=== PATIENT | female | born 1995 | race Caucasian/White ===

== ENCOUNTER 2023-03-18 22:09 | Emergency (ER) | payer SELFPAY ==
--- OUTSIDE RECORDS SUMMARY | 2023-03-18 22:17 | XMS REPORT | Continuity of Care Document ---
:1995 Author Organization [facility] t Address [address] [place] [address] [address] [place] [address] Care Team Providers Name Role Phone Ben Coronel Temo Primary Care Physician Doctor Unassigned, [place] Attending Clinician Unavailable FABIO WILCOX Attending Clinician Unavailable Fabio Lindsay Attending Clinician Steffen Arcos MD Attending Clinician Edward STORY Attending Clinician Unavailable Edward Liang Attending Clinician Dorothea Brasher Attending Clinician Kianna Corona LMSW Attending Clinician Unavailable Dixon Youngblood DO Attending Clinician Lucero Goyal RN Attending Clinician Unavailable [facility] Attending Clinician Unavailable Destiney Fabian Attending Clinician DESTINEY TELLEZ Attending Clinician Unavailable Colton Castano Attending Clinician Edward STORY Admitting Clinician Unavailable Colton Castano Admitting Clinician Payers Payer Name Policy Type Policy Number Effective Date Expiration Date [id number] 2019 00:00:00 WOMEN Problems Condition Condition Condition Status Onset Resolution Last Treating Co mments Source Name Details Category Date Date Treatment Clinician Date Cervical Cervical Disease Active 2018-07 Overview: Un dirk Papanicola Papanicola 0-23 Formattin ity of ou smear ou smear 00:00: g of this [place] as negative negative 00 note Medica l within within might be Branch last 12 last 12 different months months from the original. See scanned records 04/2019 Elevated Elevated Disease Active 2018-07 Unive rs blood blood 0-18 ity of pressure pressure 00:00: [place] reading reading 00 Medical without without Branch diagnosis diagnosis of of hypertensi hypertensi on on VOMITING VOMITING Diagnosis Active 2017-02-19 Memoria Active 02-11 21:54:00 l 02/11/2017 00:00: Yevgeniy n [facility] [place] Screening Screening Disease Active Uni vers examinatio examinatio 2- it y of n for STD n for STD [place] ([place] ([place]ually [place] Medi elizabeth transmitte transmitte Br anch d disease) d disease) Screening Screening Disease Active Overview: Univers for STD for STD 2-04 Formattin ity o f (sexually (sexually 00:00: [place] of this [place] transmitte transmitte 00 note Me dical d disease) d disease) might be Branch different from the original. ICD10 Diagnosis Term Assistant Product Manager Utility Generalize Generalize Disease Active U nivers d anxiety d anxiety 2-04 ity of disorder disorder 00:00: [place] 00 Medical Branch Obesity Obesity Disease Active Overview: Univ ers 2-04 Formattin ity of 00:00: g of this [place] 00 note Medical might be Branch different from the original. ICD10 Diagnosis Term Assistant Product Manager Utility Panic Panic Problem Active Common attack attack [facility] Vaginal Vaginal Problem Active Common discharge discharge [facility] Anxiety Anxiety Problem Active Common [facility] Gastroesop Gastroeso Problem Resolve 2017-02-15 Memoria hageal phageal d 01:07:55 l reflux reflux [place] disease disease (disorder) (disorder) Resolved Problem 02/15/2017 [facility] [place] Asthma Asthma Problem Resolve 2017-02-15 Mem oria (disorder) (disorder) d 01:07:55 l Resolved [place] Problem 02/15/2017 [facility] [place] Migraine Migraine Problem Resolve 2017-02-15 Memoria (disorder) (disorder) d 01:07:55 l Resolved [place] Problem 02/15/2017 [facility] [place] Allergies, Adverse Reactions, Alerts Allergy Allergy Status Severity Reaction(s) Onset Inactive Treating Comm ents Source Name Type Date Date Clinician Adhesive Propensi Active Rash 2018-07 Univer s ty to 0-18 ity of adverse 00:00: [place] reaction 00 Medical s Branch ADHESIVE Drug Active Rash 2018-07 Univers Class 0-18 ity of 00:00: [place] 00 Medical Branch Sulfa Propensi Active Rash Univers (Sulfona ty to 2-03 ity of mide adverse 00:00: [place] Antibiot reaction 00 Medica l ics) s Branch SULFA Drug Active Rash Univers (SULFONA Class 2-03 ity of MIDE 00:00: [place] ANTIBIOT 00 Medical ICS) Branch sulfa sulfa Active [facility]oria drugs drugs l [place] Social History Social Habit Start Date Stop Date Quantity Comments Source Exposure to 2022-04-15 2022-04-25 Not sure [facility] SARS-CoV-2 00:00:00 12:37:00 [place] Medical (event) Branch Alcohol intake 2022-04-25 2022-04-25 Current University of 00:00:00 00:00:00 non-drinker of [facility] alcohol (finding) Branch Tobacco use and 2022-04-25 2022-04-25 Smokeless tobacco Un iversity of exposure 00:00:00 00:00:00 non-user [facility] Social History 2017-02-11 [facility] 08:02:49 Sex Ass[birth year] At [birth year] Universit y of 00:00:00 00:00:00 [facility] Smoking Status Start Date Stop Date Source Never smoked tobacco [facility] Medications Ordered Filled Start Stop Current Ordering Indication Dosage Frequency Signature Comments Components Source Medication Medication Date Date Medication? Clinician (SIG) Name Name ibuprofen Yes [id number] 600mg Take 1 Univers 600 mg 8-24 tablet by ity of tablet 00:00: mouth [place] 00 every 6 Medical (six) Branch hours as needed for Pain (scale 4-6). ibuprofen Yes [id number] 600mg Take 1 Univers 600 mg 8-24 tablet by ity of tablet 00:00: mouth [place] 00 every 6 Medical (six) Branch hours as needed for Pain (scale 4-6). ibuprofen 2021-0 Yes [id number] 600mg Take 1 Univers 600 mg 8-24 tablet by ity of tablet 00:00: mouth [place] 00 every 6 Medical (six) Branch hours as needed for Pain (scale 4-6). ibuprofen 2021-0 Yes [id number] 600mg Take 1 Univers 600 mg 8-24 tablet by ity of tablet 00:00: mouth [place] 00 every 6 Medical (six) Branch hours as needed for Pain (scale 4-6). ibuprofen 2021-0 Yes [id number] 600mg Take 1 Univers 600 mg 8-24 tablet by ity of tablet 00:00: mouth [place] 00 every 6 Medical (six) Branch hours as needed for Pain (scale 4-6). ibuprofen 2021-0 Yes [id number] 600mg Take 1 Univers 600 mg 8-24 tablet by ity of tablet 00:00: mouth [place] 00 every 6 Medical (six) Branch hours as needed for Pain (scale 4-6). ibuprofen 2021-0 Yes [id number] 600mg Take 1 Univers 600 mg 8-24 tablet by ity of tablet 00:00: mouth [place] 00 every 6 Medical (six) Branch hours as needed for Pain (scale 4-6). ibuprofen 2021-0 Yes [id number] 600mg Take 1 Univers 600 mg 8-24 tablet by ity of tablet 00:00: mouth [place] 00 every 6 Medical (six) Branch hours as needed for Pain (scale 4-6). ondansetron 0 Yes [id number] 4mg Take 1 Univers (ZOFRAN 8-18 tablet by ity of ODT) 4 mg 00:00: mouth [place] disintegrat 00 every 8 Medic al ing tablet (eight) Branch hours as needed for Nausea and Vomiting (N/V). proMETHazin 2020-0 Yes [id number] 25mg Insert 1 Univers e 25 mg 8-18 Suppositor ity of suppository 00:00: [place] 00 rectum Medical every 6 Branch (six) hours as needed for Nausea and Vomiting (N/V) or N/V unresponsi ve to Ondansetro n. ondansetron 0 Yes [id number] 4mg Take 1 Univers (ZOFRAN 8-18 tablet by ity of ODT) 4 mg 00:00: mouth [place] disintegrat 00 every 8 Medic al ing tablet (eight) Branch hours as needed for Nausea and Vomiting (N/V). proMETHazin Yes [id number] 25mg Insert 1 Univers e 25 mg 8-18 Suppositor ity of suppository 00:00: [place] 00 rectum Medical every 6 Branch (six) hours as needed for Nausea and Vomiting (N/V) or N/V unresponsi ve to Ondansetro n. ondansetron 0 Yes [id number] 4mg Take 1 Univers (ZOFRAN 8-18 tablet by ity of ODT) 4 mg 00:00: mouth [place] disintegrat 00 every 8 Medic al ing tablet (eight) Branch hours as needed for Nausea and Vomiting (N/V). proMETHazin Yes [id number] 25mg Insert 1 Univers e 25 mg 8-18 Suppositor ity of suppository 00:00: [place] 00 rectum Medical every 6 Branch (six) hours as needed for Nausea and Vomiting (N/V) or N/V unresponsi ve to Ondansetro n. ondansetron Yes [id number] 4mg Take 1 Univers (ZOFRAN 8-18 tablet by ity of ODT) 4 mg 00:00: mouth [place] disintegrat 00 every 8 Medic al ing tablet (eight) Branch hours as needed for Nausea and Vomiting (N/V). proMETHazin Yes [id number] 25mg Insert 1 Univers e 25 mg 8-18 Suppositor ity of suppository 00:00: [place] 00 rectum Medical every 6 Branch (six) hours as needed for Nausea and Vomiting (N/V) or N/V unresponsi ve to Ondansetro n. ondansetron 0 Yes [id number] 4mg Take 1 Univers (ZOFRAN 8-18 tablet by ity of ODT) 4 mg 00:00: mouth [place] disintegrat 00 every 8 Medic al ing tablet (eight) Branch hours as needed for Nausea and Vomiting (N/V). proMETHazin 0 Yes [id number] 25mg Insert 1 Univers e 25 mg 8-18 Suppositor ity of suppository 00:00: [place] 00 rectum Medical every 6 Branch (six) hours as needed for Nausea and Vomiting (N/V) or N/V unresponsi ve to Ondansetro n. ondansetron Yes [id number] 4mg Take 1 Univers (ZOFRAN 8-18 tablet by ity of ODT) 4 mg 00:00: mouth [place] disintegrat 00 every 8 Medic al ing tablet (eight) Branch hours as needed for Nausea and Vomiting (N/V). proMETHazin Yes [id number] 25mg Insert 1 Univers e 25 mg 8-18 Suppositor ity of suppository 00:00: y into [place] 00 rectum Medical every 6 Branch (six) hours as needed for Nausea and Vomiting (N/V) or N/V unresponsi ve to Ondansetro n. ondansetron Yes [id number] 4mg Take 1 Univers (ZOFRAN 8-18 tablet by ity of ODT) 4 mg 00:00: mouth [place] disintegrat 00 every 8 Medic al ing tablet (eight) Branch hours as needed for Nausea and Vomiting (N/V). proMETHazin Yes [id number] 25mg Insert 1 Univers e 25 mg 8-18 Suppositor ity of suppository 00:00: y into [place] 00 rectum Medical every 6 Branch (six) hours as needed for Nausea and Vomiting (N/V) or N/V unresponsi ve to Ondansetro n. ondansetron Yes [id number] 4mg Take 1 Univers (ZOFRAN 8-18 tablet by ity of ODT) 4 mg 00:00: mouth [place] disintegrat 00 every 8 Medic al ing tablet (eight) Branch hours as needed for Nausea and Vomiting (N/V). proMETHazin Yes [id number] 25mg Insert 1 Univers e 25 mg 8-18 Suppositor ity of suppository 00:00: [place] 00 rectum Medical every 6 Branch (six) hours as needed for Nausea and Vomiting (N/V) or N/V unresponsi ve to Ondansetro n. Diflucan Diflucan 2018-0 Yes [place] 1 tablet Common 4-30 [facility] 00:00: - [facility] 00 [facility] Ondansetron 2017-0 Yes 8 mg = 1 Me moria 8 MG 7-17 tab, PO, l Disintegrat 22:20: TID, PRN He rmann ing Tablet 00 Nausea and [Zofran] Vomiting, Dissolve tab under tongue, X 4 day, # 10 tab, 0 Refill(s) pantoprazol 2017-0 Yes 40 mg = 1 M emoria e 40 MG 7-17 tab, PO, l Enteric 22:20: Daily, # Yevgeniy n Coated 00 30 tab, 1 Tablet Refill(s) [Protonix] Ondansetron 2017-0 Yes 8 mg = 1 Me moria 8 MG 7-17 tab, PO, l Disintegrat 22:20: TID, PRN He rmann ing Tablet 00 Nausea and [Zofran] Vomiting, Dissolve tab under tongue, X 4 day, # 10 tab, 0 Refill(s) pantoprazol 2017-0 Yes 40 mg = 1 M emoria e 40 MG 7-17 tab, PO, l Enteric 22:20: Daily, # Yevgeniy n Coated 00 30 tab, 1 Tablet Refill(s) [Protonix] Ondansetron 2017-0 Yes 8 mg = 1 Me moria 8 MG 7-17 tab, PO, l Disintegrat 22:20: TID, PRN He rmann ing Tablet 00 Nausea and [Zofran] Vomiting, Dissolve tab under tongue, X 4 day, # 10 tab, 0 Refill(s) pantoprazol 2017-0 Yes 40 mg = 1 M emoria e 40 MG 7-17 tab, PO, l Enteric 22:20: Daily, # Yevgeniy n Coated 00 30 tab, 1 Tablet Refill(s) [Protonix] pantoprazol 2017-0 Yes 40 mg = 1 M emoria e 40 MG 7-17 tab, PO, l Enteric 22:20: Daily, # Yevgeniy n Coated 00 30 tab, 1 Tablet Refill(s) [Protonix] Ondansetron 2017-0 Yes 8 mg = 1 Me moria 8 MG 7-17 tab, PO, l Disintegrat 22:20: TID, PRN He rmann ing Tablet 00 Nausea and [Zofran] Vomiting, Dissolve tab under tongue, X 4 day, # 10 tab, 0 Refill(s) Probiotic 2017 Yes 1 cap, PO, Me moria Formula 7-17 Daily, 0 l oral 20:01: Refill(s) [place] capsule 00 omeprazole 2017 Yes 20 mg = 1 Me moria 20 mg oral 7-17 cap, PO, l delayed 20:01: Daily, # Yevgeniy n release 00 30 cap, 0 capsule Refill(s) Esomeprazol 2017 No Daily, 0 Me moria e 7-17 Refill(s) l 20:01: [place] 00 Famotidine Yes 20 mg = 1 Me moria 20 MG Oral 7-17 tab, PO, l Tablet 20:01: BID, # 60 Yevgeniy n [Pepcid] 00 tab, 0 Refill(s) { Yes 1 tab, PO, Memoria (Ethinyl 7-17 Daily, # l Estradiol 20:01: 21 tab, 0 Her gomez 0.03 MG / 00 Refill(s) norethindro ne acetate 1.5 MG Oral Tablet) } Pack [Microgesti n 1.12/26] Probiotic Yes 1 cap, PO, Me moria Formula 7-17 Daily, 0 l oral 20:01: Refill(s) [place] capsule 00 omeprazole Yes 20 mg = 1 Me moria 20 mg oral 7-17 cap, PO, l delayed 20:01: Daily, # Yevgeniy n release 00 30 cap, 0 capsule Refill(s) Esomeprazol 2017 No Daily, 0 Me moria e 7-17 Refill(s) l 20:01: [place] 00 Famotidine Yes 20 mg = 1 Me moria 20 MG Oral 7-17 tab, PO, l Tablet 20:01: BID, # 60 Yevgeniy n [Pepcid] 00 tab, 0 Refill(s) { Yes 1 tab, PO, Memoria (Ethinyl 7-17 Daily, # l Estradiol 20:01: 21 tab, 0 Her gomez 0.03 MG / 00 Refill(s) norethindro ne acetate 1.5 MG Oral Tablet) } Pack [Microgesti n 1.12/26] Probiotic Yes 1 cap, PO, Me moria Formula 7-17 Daily, 0 l oral 20:01: Refill(s) [place] capsule 00 omeprazole Yes 20 mg = 1 Me moria 20 mg oral 7-17 cap, PO, l delayed 20:01: Daily, # Yevgeniy n release 00 30 cap, 0 capsule Refill(s) Esomeprazol 2017 No Daily, 0 Me moria e 7-17 Refill(s) l 20:01: [place] Famotidine Yes 20 mg = 1 Me moria 20 MG Oral 7-17 tab, PO, l Tablet 20:01: BID, # 60 Yevgeniy n [Pepcid] 00 tab, 0 Refill(s) { Yes 1 tab, PO, Memoria (Ethinyl 7-17 Daily, # l Estradiol 20:01: 21 tab, 0 Her gomez 0.03 MG / 00 Refill(s) norethindro ne acetate 1.5 MG Oral Tablet) } Pack [Microgesti n ] Probiotic Yes 1 cap, PO, Me moria Formula 7-17 Daily, 0 l oral 20:01: Refill(s) [place] capsule 00 omeprazole Yes 20 mg = 1 Me moria 20 mg oral 7-17 cap, PO, l delayed 20:01: Daily, # Yevgeniy n release 00 30 cap, 0 capsule Refill(s) Esomeprazol No Daily, 0 Me moria e 7-17 Refill(s) l 20:01: [place] Famotidine Yes 20 mg = 1 Me moria 20 MG Oral 7-17 tab, PO, l Tablet 20:01: BID, # 60 Yevgeniy n [Pepcid] 00 tab, 0 Refill(s) { Yes 1 tab, PO, Memoria (Ethinyl 7-17 Daily, # l Estradiol 20:01: 21 tab, 0 Her gomez 0.03 MG / 00 Refill(s) norethindro ne acetate 1.5 MG Oral Tablet) } Pack [Microgesti n 1.12/26] Zofran No Notes: [facility]oria 7-16 (Same as: l 21:00: Zofran) [place] 00 MEDICATION WASTE Product Size: 4 mg Product Wasted: ___ mg Zofran No Notes: Memoria 7-16 (Same as: l 21:00: Zofran) [place] 00 MEDICATION WASTE Product Size: 4 mg Product Wasted: ___ mg Zofran No Notes: Memoria 7-16 (Same as: l 21:00: Zofran) [place] 00 MEDICATION WASTE Product Size: 4 mg Product Wasted: ___ mg Zofran No Notes: Memoria 7-16 (Same as: l 21:00: Zofran) [place] 00 MEDICATION WASTE Product Size: 4 mg Product Wasted: ___ mg Lactulose No Notes: Memori a 667 MG/ML 7-16 (Same l Oral 14:15: as:Chronul [place] Solution 00 ac) Lactulose No Notes: Memori a 667 MG/ML 7-16 (Same l Oral 14:15: as:Chronul [place] Solution 00 ac) Lactulose No Notes: Memori a 667 MG/ML 7-16 (Same l Oral 14:15: as:Chronul [place] Solution 00 ac) Lactulose No Notes: Memori a 667 MG/ML 7-16 (Same l Oral 14:15: as:Chronul [place] Solution 00 ac) Pepcid No Notes: Memoria 7-16 (Same as: l 14:00: Pepcid) [place] 00 Can be dilute in 5-10cc NS IVP: Slow IV push over at least 2 minutes. Pepcid No Notes: Memoria 7-16 (Same as: l 14:00: Pepcid) [place] 00 Can be dilute in 5-10cc NS IVP: Slow IV push over at least 2 minutes. Pepcid No Notes: Memoria 7-16 (Same as: l 14:00: Pepcid) [place] 00 Can be dilute in 5-10cc NS IVP: Slow IV push over at least 2 minutes. Pepcid No Notes: Memoria 7-16 (Same as: l 14:00: Pepcid) [place] 00 Can be dilute in 5-10cc NS IVP: Slow IV push over at least 2 minutes. Flagyl No Notes: Memoria 7-16 (Same as: l 13:00: Flagyl) [place] 00 Avoid alcohol. Flagyl No Notes: Memoria 7-16 (Same as: l 13:00: Flagyl) [place] 00 Avoid alcohol. Flagyl No Notes: Memoria 7-16 (Same as: l 13:00: Flagyl) [place] 00 Avoid alcohol. Flagyl No Notes: Memoria 7-16 (Same as: l 13:00: Flagyl) [place] 00 Avoid alcohol. potassium No Notes: Memori a chloride 7-16 (Same as: l 12:00: K-Dur 20) [place] 00 "Do Not Crush" With food and full glass of water potassium No Notes: Memori a chloride 7-16 (Same as: l 12:00: K-Dur 20) [place] 00 "Do Not Crush" With food and full glass of water potassium No Notes: Memori a chloride 7-16 (Same as: l 12:00: K-Dur 20) [place] 00 "Do Not Crush" With food and full glass of water potassium No Notes: Memori a chloride 7-16 (Same as: l 12:00: K-Dur 20) [place] 00 "Do Not Crush" With food and full glass of water NS + KCL No Notes: Memoria 40mEq/L 7-16 PREMIX IV l 1000ml 09:42: - Do Not [place] (Premix) 00 Alter 1,000 mL WASTE: F/P - Sink; E - Municipal Trash Bin NS + KCL No Notes: Memoria 40mEq/L 7-16 PREMIX IV l 1000ml 09:42: - Do Not [place] (Premix) 00 Alter 1,000 mL WASTE: F/P - Sink; E - Municipal Trash Bin NS + KCL No Notes: [facility]oria 40mEq/L 7-16 PREMIX IV l 1000ml 09:42: - Do Not [place] (Premix) 00 Alter 1,000 mL WASTE: F/P - Sink; E - Municipal Trash Bin NS + KCL No Notes: Memoria 40mEq/L 7-16 PREMIX IV l 1000ml 09:42: - Do Not [place] (Premix) 00 Alter 1,000 mL WASTE: F/P - Sink; E - Municipal Trash Bin potassium No Notes: Memori a chloride 7-16 Infuse at l 07:01: a rate of [place] 00 10 mEq/hr. (Same as: KCL) potassium No Notes: Memori a chloride 7-16 Infuse at l 07:01: a rate of [place] 00 10 mEq/hr. (Same as: KCL) potassium No Notes: Memori a chloride 7-16 Infuse at l 07:01: a rate of [place] 00 10 mEq/hr. (Same as: KCL) potassium No Notes: Memori a chloride 7-16 Infuse at l 07:01: a rate of [place] 00 10 mEq/hr. (Same as: KCL) Levaquin No Notes: Memoria 7-16 (Same l 07:00: as:Levaqui [place] 00 n) Levaquin No Notes: Memoria 7-16 (Same l 07:00: as:Levaqui [place] 00 n) Levaquin No Notes: Memoria 7-16 (Same l 07:00: as:Levaqui [place] 00 n) Levaquin No Notes: [facility]oria 7-16 (Same l 07:00: as:Levaqui [place] 00 n) Reglan No Notes: Memoria 7-16 (Same as: l 06:56: Reglan) [place] 00 Reglan No Notes: [place]oria 7-16 (Same as: l 06:56: Reglan) [place] 00 Reglan No Notes: Memoria 7-16 (Same as: l 06:56: Reglan) [place] 00 Reglan No Notes: Memoria 7-16 (Same as: l 06:56: Reglan) [place] 00 Saline No Notes: Memoria Flush 0.9% 16 (Same as: l 06:55: BD [place] 00 Posiflush) Ondansetron No Notes: Vinnie sae -16 (Same as: l 06:55: Zofran) [place] 00 MEDICATION WASTE Product Size: 4 mg Product Wasted: ___ mg Hydralazine No Notes: Vinnie sae 02-11 (Same as: l 06:55: Apresoline [place] 00 ) Push over 5 minutes Albuterol No Notes: Memori a 0.833 MG/ML 02-11 (Same as: l / 06:55: Duoneb) [place] Ipratropium 00 [place] 0.167 MG/ML Inhalant Solution [DuoNeb] Nitroglycer No Notes: Vinnie sae in 02-11 (Same l 06:55: as:Nitroqu [place] 00 ick, Nitrostat) "Do Not Crush" Sublingual tablet Acetaminoph No Notes: Do M emoria en 02-11 not exceed l 06:55: 4 gm/day. [place] 00 (Same as: Tylenol) Morphine No Notes: Memoria 02-11 (Same l 06:55: as:MORPhin [place] 00 e Sulfate) Acetaminoph No Notes: Vinnie sae en 325 MG / 02-11 (Same as: l Hydrocodone 06:55: Rhodhiss Alyssia nn Bitartrate 00 325/5) Do 5 MG Oral not exceed Tablet 4gm/day of acetaminop hen. Sodium No 1,000 mL, Memori a Chloride 02-11 Rate: 125 l 0.154 06:55: ml/hr, [place] MEQ/ML 00 Infuse Injectable over: 8 Solution hr, Route: IV, Dosing Weight 86.818 kg, Total Volume: 1,000, Start date: 02/11/17 1:55:00 CDT, Duration: 30 day, Stop date: 03/13/17 1:54:00 CDT Saline No Notes: Memoria Flush 0.9% 02-11 (Same as: l 06:55: BD [place] 00 Posiflush) Ondansetron No Notes: Vinnie sae 02-11 (Same as: l 06:55: Zofran) [place] 00 MEDICATION WASTE Product Size: 4 mg Product Wasted: ___ mg Hydralazine No Notes: Vinnie sae 02-11 (Same as: l 06:55: Apresoline [place] 00 ) Push over 5 minutes Albuterol No Notes: Memori a 0.833 MG/ML 02-11 (Same as: l / 06:55: Duoneb) [place] Ipratropium 00 [place] 0.167 MG/ML Inhalant Solution [DuoNeb] Nitroglycer No Notes: Vinnie sae in 02-11 (Same l 06:55: as:Nitroqu [place] 00 ick, Nitrostat) "Do Not Crush" Sublingual tablet Acetaminoph No Notes: Do M emoria en 02-11 not exceed l 06:55: 4 gm/day. [place] 00 (Same as: Tylenol) Morphine No Notes: Memoria 02-11 (Same l 06:55: as:MORPhin [place] 00 e Sulfate) Acetaminoph No Notes: Vinnie sae en 325 MG / 02-11 (Same as: l Hydrocodone 06:55: Rhodhiss Alyssia nn Bitartrate 00 325/5) Do 5 MG Oral not exceed Tablet 4gm/day of acetaminop hen. Sodium No 1,000 mL, Memori a Chloride 02-11 Rate: 125 l 0.154 06:55: ml/hr, [place] MEQ/ML 00 Infuse Injectable over: 8 Solution hr, Route: IV, Dosing Weight 86.818 kg, Total Volume: 1,000, Start date: 02/11/17 1:55:00 CDT, Duration: 30 day, Stop date: 03/13/17 1:54:00 CDT Saline No Notes: Memoria Flush 0.9% 02-11 (Same as: l 06:55: BD [place] 00 Posiflush) Ondansetron No Notes: Vinnie sae 02-11 (Same as: l 06:55: Zofran) [place] 00 MEDICATION WASTE Product Size: 4 mg Product Wasted: ___ mg Hydralazine No Notes: Vinnie sae 02-11 (Same as: l 06:55: Apresoline [place] 00 ) Push over 5 minutes Albuterol No Notes: Memori a 0.833 MG/ML 02-11 (Same as: l / 06:55: Duoneb) [place] Ipratropium 00 [place] 0.167 MG/ML Inhalant Solution [DuoNeb] Nitroglycer No Notes: Vinnie sae in 02-11 (Same l 06:55: as:Nitroqu [place] 00 ick, Nitrostat) "Do Not Crush" Sublingual tablet Acetaminoph No Notes: Do M emoria en 02-11 not exceed l 06:55: 4 gm/day. [place] 00 (Same as: Tylenol) Morphine No Notes: Memoria 02-11 (Same l 06:55: as:MORPhin [place] 00 e Sulfate) Acetaminoph No Notes: Vinnie sae en 325 MG / 02-11 (Same as: l Hydrocodone 06:55: Rhodhiss Alyssia nn Bitartrate 00 325/5) Do 5 MG Oral not exceed Tablet 4gm/day of acetaminop hen. Sodium No 1,000 mL, Memori a Chloride 02-11 Rate: 125 l 0.154 06:55: ml/hr, [place] MEQ/ML 00 Infuse Injectable over: 8 Solution hr, Route: IV, Dosing Weight 86.818 kg, Total Volume: 1,000, Start date: 02/11/17 1:55:00 CDT, Duration: 30 day, Stop date: 03/13/17 1:54:00 CDT Saline No Notes: Memoria Flush 0.9% 02-11 (Same as: l 06:55: BD [place] 00 Posiflush) Ondansetron No Notes: Vinnie sae 02-11 (Same as: l 06:55: Zofran) [place] 00 MEDICATION WASTE Product Size: 4 mg Product Wasted: ___ mg Hydralazine No Notes: Vinnie sae 02-11 (Same as: l 06:55: Apresoline [place] ) Push over 5 minutes Albuterol No Notes: Memori a 0.833 MG/ML 02-11 (Same as: l / 06:55: Duoneb) [place] Ipratropium 00 [place] 0.167 MG/ML Inhalant Solution [DuoNeb] Nitroglycer No Notes: Vinnie sae in 02-11 (Same l 06:55: as:Nitroqu [place] 00 ick, Nitrostat) "Do Not Crush" Sublingual tablet Acetaminoph No Notes: Do M emoria en 02-11 not exceed l 06:55: 4 gm/day. [place] 00 (Same as: Tylenol) Morphine No Notes: Memoria 02-11 (Same l 06:55: as:MORPhin [place] 00 e Sulfate) Acetaminoph No Notes: Vinnie sae en 325 MG / 02-11 (Same as: l Hydrocodone 06:55: Rhodhiss Alyssia nn Bitartrate 00 325/5) Do 5 MG Oral not exceed Tablet 4gm/day of acetaminop hen. Sodium No 1,000 mL, Memori a Chloride 02-11 Rate: 125 l 0.154 06:55: ml/hr, [place] MEQ/ML 00 Infuse Injectable over: 8 Solution hr, Route: IV, Dosing Weight 86.818 kg, Total Volume: 1,000, Start date: 02/11/17 1:55:00 CDT, Duration: 30 day, Stop date: 03/13/17 1:54:00 CDT Benadryl No Notes: [facility] 7-16 (Same as: l 06:07: Benadryl) [place] 00 Benadryl No Notes: [facility] 7-16 (Same as: l 06:07: Benadryl) [place] Benadryl No Notes: [facility]oria 7-16 (Same as: l 06:07: Benadryl) [place] Benadryl No Notes: [facility]oria 7-16 (Same as: l 06:07: Benadryl) [place] Reglan No Notes: Memoria 7-16 (Same as: l 06:06: Reglan) [place] Reglan No Notes: [facility]oria 7-16 (Same as: l 06:06: Reglan) [place] Reglan No Notes: [facility] 7-16 (Same as: l 06:06: Reglan) [place] Reglan No Notes: [facility]oria 7-16 (Same as: l 06:06: Reglan) [place] 00 NS + KCL No Notes: [facility]oria 40mEq/L 7-16 PREMIX IV l 1000ml 06:00: - Do Not [place] (Premix) 00 Alter 1,000 mL WASTE: F/P - Sink; E - Municipal Trash Bin NS + KCL No Notes: [facility]oria 40mEq/L 7-16 PREMIX IV l 1000ml 06:00: - Do Not [place] (Premix) 00 Alter 1,000 mL WASTE: F/P - Sink; E - Municipal Trash Bin NS + KCL No Notes: [facility] 40mEq/L 7-16 PREMIX IV l 1000ml 06:00: - Do Not [place] (Premix) 00 Alter 1,000 mL WASTE: F/P - Sink; E - Municipal Trash Bin NS + KCL No Notes: [facility] 40mEq/L 7-16 PREMIX IV l 1000ml 06:00: - Do Not [place] (Premix) 00 Alter 1,000 mL WASTE: F/P - Sink; E - Municipal Trash Bin GI cocktail No Notes: Vinnie sae -16 G.I. l 05:11: Cocktail = Santos 00 antacid with simethicon e 22.5 mL - lidocaine viscous 7.5 mL Promethazin No 25 mg, Vinnie sae e -16 Route: IM, l 05:11: ONCE, Santos 00 Dosing Weight 86.818, kg, Priority: STAT, Start date: 02/11/17 0:11:00 CDT, Stop date: 02/11/17 0:11:00 CDT Saline No Notes: Memoria Flush 0.9% 02-11 (Same as: l 05:11: BD Santos Posiflush) Sodium No 1,000 mL, Memori a Chloride -16 2,000 l 0.154 05:11: ml/hr, [place] MEQ/ML 00 Infuse Injectable Over: 30 Solution minutes, Route: IV, ONCE, Priority: STAT, Dosing Weight 86.818 kg, Start date: 02/11/17 0:11:00 CDT, Duration: 1 doses or times, Stop date: 02/11/17 0:11:00 CDT GI cocktail No Notes: Vinnie sae 7-16 G.I. l 05:11: Cocktail = Santos 00 antacid with simethicon e 22.5 mL - lidocaine viscous 7.5 mL Promethazin No 25 mg, Vinnie sae e 7-16 Route: IM, l 05:11: ONCE, Dosing Weight 86.818, kg, Priority: STAT, Start date: 02/11/17 0:11:00 CDT, Stop date: 02/11/17 0:11:00 CDT Saline No Notes: Memoria Flush 0.9% 7-16 (Same as: l 05:11: BD [place] 00 Posiflush) Sodium No 1,000 mL, Memori a Chloride 7-16 2,000 l 0.154 05:11: ml/hr, Santos MEQ/ML 00 Infuse Injectable Over: 30 Solution minutes, Route: IV, ONCE, Priority: STAT, Dosing Weight 86.818 kg, Start date: 02/11/17 0:11:00 CDT, Duration: 1 doses or times, Stop date: 02/11/17 0:11:00 CDT GI cocktail No Notes: Vinnie sae 7-16 G.I. l 05:11: Cocktail = [place] antacid with simethicon e 22.5 mL - lidocaine viscous 7.5 mL Promethazin No 25 mg, Vinnie sae e 16 Route: IM, l 05:11: ONCE, Dosing Weight 86.818, kg, Priority: STAT, Start date: 02/11/17 0:11:00 CDT, Stop date: 02/11/17 0:11:00 CDT Saline No Notes: Memoria Flush 0.9% 7-16 (Same as: l 05:11: BD Santos 00 Posiflush) Sodium No 1,000 mL, Memori a Chloride 7-16 2,000 l 0.154 05:11: ml/hr, Santos MEQ/ML 00 Infuse Injectable Over: 30 Solution minutes, Route: IV, ONCE, Priority: STAT, Dosing Weight 86.818 kg, Start date: 02/11/17 0:11:00 CDT, Duration: 1 doses or times, Stop date: 02/11/17 0:11:00 CDT GI cocktail No Notes: Vinnie sae 7-16 G.I. l 05:11: Cocktail = [place] 00 antacid with simethicon e 22.5 mL - lidocaine viscous 7.5 mL Promethazin No 25 mg, Vinnie sae e 7-16 Route: IM, l 05:11: ONCE, Dosing Weight 86.818, kg, Priority: STAT, Start date: 02/11/17 0:11:00 CDT, Stop date: 02/11/17 0:11:00 CDT Saline No Notes: Memoria Flush 0.9% 16 (Same as: l 05:11: BD Posiflush) Sodium No 1,000 mL, Memori a Chloride -16 2,000 l 0.154 05:11: ml/hr, MEQ/ML 00 Infuse Injectable Over: 30 Solution minutes, Route: IV, ONCE, Priority: STAT, Dosing Weight 86.818 kg, Start date: 02/11/17 0:11:00 CDT, Duration: 1 doses or times, Stop date: 02/11/17 0:11:00 CDT norgestimat Yes [id number] 1{tbl} Take 1 Tab Univers e-ethinyl 2-03 by mouth ity of estradiol 00:00: daily. [place] ([facility]) 00 Medical 0.25-35 Branch mg-mcg per tablet norgestimat Yes [id number] 1{tbl} Take 1 Tab Univers e-ethinyl 2-03 by mouth ity of estradiol 00:00: daily. [place] ([facility]) Medical 0.25-35 Branch mg-mcg per tablet norgestimat Yes [id number] 1{tbl} Take 1 Tab Univers e-ethinyl 2-03 by mouth ity of estradiol 00:00: daily. [place] ([facility]) 00 Medical 0.25-35 Branch mg-mcg per tablet norgestimat Yes [id number] 1{tbl} Take 1 Tab Univers e-ethinyl 2-03 by mouth ity of estradiol 00:00: daily. [place] ([facility]) 00 Medical 0.25-35 Branch mg-mcg per tablet norgestimat 2016-0 Yes [id number] 1{tbl} Take 1 Tab Univers e-ethinyl 2-03 by mouth ity of estradiol 00:00: daily. [place] ([facility]) 00 Medical 0.25-35 Branch mg-mcg per tablet norgestimat 2016-0 Yes [id number] 1{tbl} Take 1 Tab Univers e-ethinyl 2-03 by mouth ity of estradiol 00:00: daily. [facility]) Medical 0.25-35 Branch mg-mcg per tablet norgestimat 20160 Yes [id number] 1{tbl} Take 1 Tab Univers e-ethinyl 2-03 by mouth ity of estradiol 00:00: daily. [facility]) Medical 0.25-35 Branch mg-mcg per tablet norgestimat 0 Yes [id number] 1{tbl} Take 1 Tab Univers e-ethinyl 2-03 by mouth ity of estradiol 00:00: daily. [place] [address] Medical 0.25-35 Branch mg-mcg per tablet Immunizations Ordered Immunization Filled Immunization Date Status Commen ts Source Name Name TDAP (ADACEL) 2019-05-16 Completed University of VACCINE 00:00:00 [facility] Influenza Virus 2019-05-16 Completed Universit y of Vaccine Quad .5 mL 00:00:00 [facility] 6+ MO Branch TDAP (ADACEL) 2019-05-16 Completed University of VACCINE 00:00:00 [facility] Influenza Virus 2019-05-16 Completed Universit y of Vaccine Quad .5 mL 00:00:00 [place] [facility] IM 6+ MO Branch TDAP (ADACEL) 2019-05-16 Completed University of VACCINE 00:00:00 [facility] Influenza Virus 2019-05-16 Completed Universit y of Vaccine Quad .5 mL 00:00:00 [place] [facility] IM 6+ MO Branch TDAP (ADACEL) 2019-05-16 Completed University of VACCINE 00:00:00 [facility] Influenza Virus 2019-05-16 Completed Universit y of Vaccine Quad .5 mL 00:00:00 [facility] IM 6+ MO Branch TDAP (ADACEL) 2019-05-16 Completed University of VACCINE 00:00:00 [place] [facility] Influenza Virus 2019-05-16 Completed Universit y of Vaccine Quad .5 mL 00:00:00 [place] [facility] IM 6+ MO Branch TDAP (ADACEL) 2019-05-16 Completed University of VACCINE 00:00:00 [place] [facility] Influenza Virus 2019-05-16 Completed Universit y of Vaccine Quad .5 mL 00:00:00 [place] [facility] IM 6+ MO Branch TDAP (ADACEL) 2019-05-16 Completed University of VACCINE 00:00:00 [place] [facility] Influenza Virus 2019-05-16 Completed Universit y of Vaccine Quad .5 mL 00:00:00 [place] [facility] IM 6+ MO Branch TDAP (ADACEL) 2019-05-16 Completed University of VACCINE 00:00:00 [place] [facility] Influenza Virus 2019-05-16 Completed Universit y of Vaccine Quad .5 mL 00:00:00 [place] [facility] IM 6+ [place] Branch Meningococcal B, OMV 2015-10-29 Completed Univ ersity of 00:00:00 [place] [facility] Meningococcal B, OMV 2015-10-29 Completed Univ ersity of 00:00:00 [place] [facility] Meningococcal B, OMV 2015-10-29 Completed Univ ersity of 00:00:00 [place] [facility] Meningococcal B, OMV 2015-10-29 Completed Univ ersity of 00:00:00 [place] [facility] Meningococcal B, OMV 2015-10-29 Completed Univ ersity of 00:00:00 [place] [facility] Meningococcal B, OMV 2015-10-29 Completed Univ ersity of 00:00:00 [place] [facility] Meningococcal B, OMV 2015-10-29 Completed Univ ersity of 00:00:00 [place] [facility] Meningococcal B, OMV 2015-10-29 Completed Univ ersity of 00:00:00 [place] [facility] Meningococcal B, OMV 2015-09-28 Completed Univ ersity of 00:00:00 [place] [facility] Meningococcal B, OMV 2015-09-28 Completed Univ ersity of 00:00:00 [place] [facility] Meningococcal B, OMV 2015-09-28 Completed Univ ersity of 00:00:00 [place] [facility] Meningococcal B, OMV 2015-09-28 Completed Univ ersity of 00:00:00 [place] [facility] Meningococcal B, OMV 2015-09-28 Completed Univ ersity of 00:00:00 [place] [facility] Meningococcal B, OMV 2015-09-28 Completed Univ ersity of 00:00:00 [place] [facility] Meningococcal B, OMV 2015-09-28 Completed Univ ersity of 00:00:00 [place] [facility] Meningococcal B, OMV 2015-09-28 Completed Univ ersity of 00:00:00 [place] [facility] HPV 2012-09-06 Completed University of 00:00:00 [place] [facility] HPV 2012-09-06 Completed University of 00:00:00 [place] [facility] HPV 2012-09-06 Completed University of 00:00:00 [place] [facility] HPV 2012-09-06 Completed University of 00:00:00 [place] [facility] HPV 2012-09-06 Completed University of 00:00:00 [place] [facility] HPV 2012-09-06 Completed University of 00:00:00 [place] [facility] HPV 2012-09-06 Completed University of 00:00:00 [place] [facility] HPV 2012-09-06 Completed University of 00:00:00 [place] [facility] HPV 2012-05-01 Completed University of 00:00:00 [place] [facility] HPV 2012-05-01 Completed University of 00:00:00 [place] [facility] HPV 2012-05-01 Completed University of 00:00:00 [place] [facility] HPV 2012-05-01 Completed University of 00:00:00 [place] [facility] HPV 2012-05-01 Completed University of 00:00:00 [place] [facility] HPV 2012-05-01 Completed University of 00:00:00 [place] [facility] HPV 2012-05-01 Completed University of 00:00:00 [place] [facility] HPV 2012-05-01 Completed University of 00:00:00 [place] [facility] Td 2012-03-01 Completed University of 00:00:00 [place] [facility] HPV 2012-03-01 Completed University of 00:00:00 [place] [facility] Td 2012-03-01 Completed University of 00:00:00 [place] [facility] HPV 2012-03-01 Completed University of 00:00:00 [place] [facility] Td 2012-03-01 Completed University of 00:00:00 [place] [facility] HPV 2012-03-01 Completed University of 00:00:00 [place] [facility] Td 2012-03-01 Completed University of 00:00:00 [place] [facility] HPV 2012-03-01 Completed University of 00:00:00 [place] [facility] Td 2012-03-01 Completed University of 00:00:00 [place] [facility] HPV 2012-03-01 Completed University of 00:00:00 [place] [facility] Td 2012-03-01 Completed University of 00:00:00 [place] [facility] HPV 2012-03-01 Completed University of 00:00:00 [place] [facility] Td 2012-03-01 Completed University of 00:00:00 [place] [facility] HPV 2012-03-01 Completed University of 00:00:00 [place] [facility] Td 2012-03-01 Completed University of 00:00:00 [facility] Branch HPV 2012-03-01 Completed University of 00:00:00 [facility] Vital Signs Vital Name Observation Time Observation Value Comments Source Systolic blood 2022-04-25 18:20:00 124 mm[Hg] Univer sity of pressure [facility] Diastolic blood 2022-04-25 18:20:00 84 mm[Hg] Unive rsity of pressure [facility] Heart rate 2022-04-25 18:20:00 89 /min [facility] Oxygen saturation in 2022-04-25 18:20:00 98 /min [facility] Arterial blood by [facility] Pulse oximetry Branch Body height 2022-04-25 18:19:00 180.3 cm Universi ty [facility] Body weight 2022-04-25 18:19:00 92.806 kg Universi [facility] BMI 2022-04-25 18:19:00 28.54 kg/m2 Universi ty [facility] Body height 2022-03-24 14:35:00 180.3 cm Universi [facility] Body weight 2022-03-24 14:35:00 [facility]255 [facility] 2022-03-24 14:35:00 29.29 kg/m2 Universi [facility] Systolic (mm Hg) 2017-02-12 19:08:00 Vinnie zuñiga [place] Diastolic (mm Hg) 2017-02-12 19:08:00 Mem orial [place] Respitory Rate 2017-02-12 19:08:00 Adebayo Ann Heart Rate 2017-02-12 19:08:00 [facility] Temperature Oral (F) 2017-02-12 19:08:00 98.4 F [facility] [place] Respitory Rate 2017-02-12 15:27:00 Adebayo al [place] Systolic (mm Hg) 2017-02-12 15:27:00 Vinnie rial Santos Diastolic (mm Hg) 2017-02-12 15:27:00 Mem orial [place] Temperature Oral (F) 2017-02-12 15:27:00 98.2 F [facility] Heart Rate 2017-02-12 15:27:00 [facility] Temperature Oral (F) 2017-02-12 12:18:00 98.2 F [facility] [place] Heart Rate 2017-02-12 12:18:00 [facility] [place] Systolic (mm Hg) 2017-02-12 12:18:00 Vinnie rial Santos Diastolic (mm Hg) 2017-02-12 12:18:00 Mem orial Santos Respitory Rate 2017-02-12 12:18:00 Marcelawendy pelaez [place] Weight 2017-02-11 13:25:00 [facility] [place] Height 2017-02-11 08:10:00 177.8 cm [facility] BMI Calculated 2017-02-11 08:10:00 Marcelawendy al [place] Weight 2017-02-11 08:10:00 [facility] Weight 2017-02-11 04:19:00 [facility] [place] Procedures Procedure Date / Time Performing Clinician Source Performed EXTERNAL PROVIDER 2022-05-16 05:01:00 Doctor Unassigned, No Univ [facility] [place] RECORDS Name [facility] Branch REFERRAL- 2022-04-06 05:01:00 Doctor Unassigned, No Univer [facility] REQUEST/RESPONSE Name [facility] Colonoscopy [facility] endoscopy [facility] rmann Extraction of wisdom [facility] He rmann tooth Encounters Start End Encounter Admission Attending Care Care Encounter Source Date/Time Date/Time Type Type Clinicians Facility Department ID 2021-05-30 Emergency [facility] [id number] Univers 16:29:02 ity of [facility] 2022-12-01 2022-12-[address] [facility] [id number] Dino 10:37:32 10:37:32 [id number] Law 2022-11-10 2022-11-10 Outpatient SFA SFA [id number] Dino 09:33:52 09:33:52 [id number] F Law 2022-05-16 2022-05-16 Orders Doctor WRIGHT 1.2.840.114 [id number] Univers 00:00:00 00:00:00 Only Unassigned, [place] 350.1.13.10 ity of [place] [facility] 4.2.7.2.686 Remy as [phone] [address] 2022-04-25 2022-04-25 Outpatient Angelika WILCOX [facility] [id number] Univers 13:00:00 13:53:03 FABIO [facility] 2022-04-25 2022-04-25 [facility] 1.2.840.114 [id number] Univers 13:00:00 13:53:03 Visit Fabio Anderson [facility] 350.1.13.10 it y of [place] 4.2.7.2.686 Remy as YOSVANY?BLEA [phone] Va serene GARRISON [address] [place] [address] 2022-04-24 2022-04-24 Telephone Josselyn [facility] 1.2.840.114 [id number] Univers 00:00:00 00:00:00 [facility] HEALTH 350.1.13.10 it y of [place] 4.2.7.2.686 Remy as YOSVANY?BLEA [phone] Va serene GARRISON [address] [place] [address] 2022-04-06 2022-04-06 Orders Doctor KYLE 1.2.840.114 [id number] Univers 00:00:00 00:00:00 Only Unassigned, [place] 350.1.13.10 ity of [place] [facility] 4.2.7.2.686 Remy as [phone] [address] 2022-03-31 2022-03-31 Outpatient Angelika WILCOX [facility] [id number] Univers 08:45:00 08:45:00 FABIO [facility] 2022-03-31 2022-03-31 [facility]phone [facility] [id number] Univers 00:00:00 00:00:00 Fabio S HEALTH 350.1.13.10 it y of [place] 4.2.7.2.686 Remy as YOSVANY?BLEA [phone] Va serene GARRISON [address] [place] [address] 2022-03-24 2022-03-24 Outpatient Angelika WILCOX [facility] [id number] Univers 09:15:00 10:23:53 FABIO ity [facility] 2022-03-24 2022-03-24 Office [facility] 1.2.840.114 [id number] Univers 09:15:00 09:45:00 Visit Fabio [facility] 350.1.13.10 it y of [place] 4.2.7.2.686 Remy as YOSVANY?BLEA [phone] Va serene GARRISON [address] [facility] OFFICE [facility] 2022-03-24 2022-03-24 Outpatient [facility] [id number] Univers 09:15:00 09:15:00 FABIO ity [facility] 2022-03-24 2022-03-24 Letter [facility] 1.2.840.114 [id number] Univers 00:00:00 00:00:00 (Out) Fabio Anderson [facility] 350.1.13.10 it y of [place] 4.2.7.2.686 Remy as YOSVANY?BLEA [id number] Va sosalatanya ELLEN [address] [place] [address] OFFICE [facility] 2022-03-22 2022-03-22 Emergency X Edward STORY [facility] ERT [id number] Univers 09:19:00 10:54:00 ity of [facility] 2022-03-22 2022-03-22 Emergency Edward Story [facility] 1.2.840.114 [id number] Univers 09:19:00 10:54:00 Sand[facility]fransisco [facility] 350.1.13.10 i ty of [place] [phone] [facility] [address] [place] 2022-03-22 2022-03-22 Emergency X JEZ K [facility] ERT [id number] Univers 09:19:00 10:54:00 ity of [facility] 2021-08-23 2021-08-23 Orders Doctor WRIGHT 1.2.840.114 [id number] Univers 00:00:00 00:00:00 Only Unassigned, [place] 350.1.13.10 ity of [place] [facility] 4.2.7.2.686 Remy as [phone] [facility] 009 Branch 2021-03-17 2021-03-17 Orders Doctor KYLE 1.2.840.114 [id number] Univers 00:00:00 00:00:00 Only Unassigned, [place] 350.1.13.10 ity of [place] [facility] 4.2.7.2.686 Remy as [phone] [facility] 009 Branch 2021-03-16 2021-03-16 Emergency [facility] 1.2.840.114 [id number] Univers 14:30:00 17:59:00 Dorothea Ramos 350.1.13.10 i ty [place] [phone] [facility] 084 Branch 2021-03-16 2021-03-16 Orders Doctor KYLE 1.2.840.114 [id number] Univers 00:00:00 00:00:00 Only Unassigned, [place] 350.1.13.10 ity of [place] [facility] 4.2.7.2.686 Remy as [phone] [facility] 009 Branch 2020-12-14 2020-12-14 Case Morenita Corona 1.2.840.114 [id number] Univers 00:00:00 00:00:00 Management Kianna David 350.1.13.10 ity of [place].2.[place] [phone] [facility] 086 Branch 2020-10-19 2020-10-19 [facility] 1.2.840.114 [id number] Univers 00:00:00 00:00:00 Outreach Dixon GRAHAM 350.1.13.10 i ty of [facility] 4.2.7.2.[place] [phone] Va dical 388 Branch 2019-11-11 2019-11-11 Telephone KYLE Goyal [id number] 00:00:00 00:00:00 Lucero SIMON 350.1.13.[address] [facility]OSP[id number] [facility] 2019-11-11 2019-11-11 Telephone KYLE Goyal [id number] Univers 00:00:00 00:00:00 Lucero SIMON 350.1.13.10 it y of HOSPITAL 4.2.7.2.686 Remy as [id number] [address] 2019-11-10 2019-11-10 Urgent Pob1, Acute [facility] 1.2.840.114 [id number] 15:56:53 16:28:48 Care Bertrand [facility] 350.1.13.10 [place] 4.2.7.2.686 Professio [id number] nal [address] 2019-11-10 2019-11-10 Urgent Pob1, Acute Care Clinic [facility] 1. 2.840.114 [id number] [facility] 15:56:53 16:28:48 Care Destiney Tellez [facility] 350.1.13.10 ity of [place] 4.2.7.2.686 Remy as Professio [phone] Va dical [address] Office [address] 2019-11-10 2019-11-10 Outpatient Angelika TELLEZ [facility] [id number] Univers 16:00:00 16:00:00 DESTINEY tapia [facility] 2018-11-25 2018-11-25 Outpatient [facility] [id number] Common 16:18:00 16:18:00 [facility] pirit Care [facility] 2018-05-14 2018-05-14 Outpatient [facility] [id number] Common 11:22:00 11:22:00 t Women Womens [facility] S pirit Care [facility] 2018-05-13 2018-05-13 Outpatient [facility] [id number] Common 14:59:00 14:59:00 t Womens Womens Care S pirit Care [facility] 2018-05-13 2018-05-13 Outpatient [facility] [id number] Common 14:30:00 14:30:00 t Womens [facility]omens Care S pirit Care [facility] 2018-02-13 2018-02-13 Outpatient [facility] [id number] Common 13:15:00 13:15:00 t Women's Women's Spir it Care Care [facility] 2017-02-11 2017-02-12 [facility] [id number] Memoria 04:15:00 23:05:00 n r [place] 00 l [place] Alyssia 2017-02-11 2017-02-12 Observatio nullFlavo [facility] [id number] Memoria 04:15:00 23:05:00 n r [place] 00 l [place] Alyssia 2017-02-10 2017-02-12 Outpatient Eyad, MHSL SL [id number] 23:15:00 18:05:00 [place] 00 Results Test Description Test Time Test Comments Results Result Comments Source CHEM PANEL 2017-02-12 15:50:00 Test Item Value Reference Range Interpretation Comme nts eGFR (test code = eGFR) 123 [facility]2017-07-17 15:50:00 Test Item Value Reference Range Interpretation Comments Globulin (test code = Globulin) 4.0 2.7-4.2 [facility]2017-07-17 15:50:00 Test Item Value Reference Range Interpretation Comments A/G Ratio (test code = A/G Ratio) 0.8 0.7-1.6 [facility]2017-07-17 15:50:00 Test Item Value Reference Range Interpretation Comments B/C Ratio (test code = B/C Ratio) 6 6-25 [facility]2017-07-17 15:50:00 Test Item Value Reference Range Interpretation Comments AGAP (test code = AGAP) 12.6 10.0-20.0 [facility]2017-07-17 15:50:00 Test Item Value Reference Range Interpretation Comments Alk Phos (test code = Alk Phos) 58 39-136 [facility]2017-07-17 15:50:00 Test Item Value Reference Range Interpretation Comments Bili Total (test code = Bili Total) 0.5 0.2-1.3 [facility] [id number] 15:50:00 Test Item Value Reference Range Interpretation Comments AST (test code = AST) 11 See_Comment [Auto mated message] The system which ge nerated this result transmit rohit reference range : <=37. The reference range was not used to interpr et this result as flor l/abnormal. [facility] [id number] 15:50:00 Test Item Value Reference Range Interpretation Comments ALT (test code = ALT) 27 See_Comment [Auto mated message] The system which ge nerated this result transmit rohit reference range : <=65. The reference range was not used to interpr et this result as flor l/abnormal. [facility]2017-07-17 15:50:00 Test Item Value Reference Range Interpretation Comments Total Protein (test code = Total 7.4 6.4-8.4 Protein) [facility]2017-07-17 15:50:00 Test Item Value Reference Range Interpretation Comments Albumin Lvl (test code = Albumin Lvl) 3.4 3.5-5.0 [facility]2017-07-17 15:50:00 Test Item Value Reference Range Interpretation Comments Calcium Lvl (test code = Calcium Lvl) 8.7 8.5-10.5 [facility]2017-07-17 15:50:00 Test Item Value Reference Range Interpretation Comments CO2 (test code = CO2) 25 24-32 [facility]2017-07-17 15:50:00 Test Item Value Reference Range Interpretation Comments Chloride Lvl (test code = Chloride Lvl) 104 95-109 [facility]2017-07-17 15:50:00 Test Item Value Reference Range Interpretation Comments Sodium Lvl (test code = Sodium Lvl) 138 135-145 [facility]2017-07-17 15:50:00 Test Item Value Reference Range Interpretation Comments Potassium Lvl (test code = Potassium 3.6 3.5-5.1 Lvl) [facility]2017-07-17 15:50:00 Test Item Value Reference Range Interpretation Comments Glucose Lvl (test code = Glucose Lvl) 82 70-99 [facility]2017-07-17 15:50:00 Test Item Value Reference Range Interpretation Comments Creatinine Lvl (test code = Creatinine 0.71 0.50-1.40 Lvl) [facility]2017-07-17 15:50:00 Test Item Value Reference Range Interpretation Comments BUN (test code = BUN) 4 7-22 [facility]2017-07-17 15:50:00 Test Item Value Reference Range Interpretation Comments Phosphorus (test code = Phosphorus) 3.0 2.5-4.5 [facility]2017-07-17 15:50:00 Test Item Value Reference Range Interpretation Comments Magnesium Lvl (test code = Magnesium 2.3 1.8-2.4 Lvl) [id number] 15:50:00 Test Item Value Reference Range Interpretation Comments Eosinophils # (test code 0.1 See_Comment [A utomated message] The = Eosinophils #) system whic h generated this result tra nsmitted reference range : <=0.5. The reference r nikki was not used to int erpret this result as normal/abnormal . [facility] [id number] 15:50:00 Test Item Value Reference Range Interpretation Comments Basophils # (test code 0.0 See_Comment [Aut omated message] The = Basophils #) system which generated this result tra nsmitted reference range : <=0.2. The reference r nikki was not used to int erpret this result as normal/abnormal . [facility] [id number] 15:50:00 Test Item Value Reference Range Interpretation Comments Eosinophils (test code = 0.7 See_Comment [A utomated message] The Eosinophils) system which ge nerated this result tra nsmitted reference range : <=4.0. The reference r nikki was not used to int erpret this result as normal/abnormal . [id number] 15:50:00 Test Item Value Reference Range Interpretation Comments Basophils (test code = 0.5 See_Comment [Aut omated message] The Basophils) system which ge nerated this result tra nsmitted reference range : <=1.0. The reference r nikki was not used to int erpret this result as normal/abnormal . [facility] HospitalDgcscxgJOLFYQROVY0843-66-39 15:50:00 Test Item Value Reference Range Interpretation Comments RBC Morph (test code = Normal (02/12/17 10:50 RBC Morph) AM) [facility] HospitalHbtjzuvPDUUQENATO4412-74-29 15:50:00 Test Item Value Reference Range Interpretation Comments Plt Morph (test code = Normal (02/12/17 10:50 Plt Morph) AM) [facility] HospitalVhtvhnuYCBMBXDZNK4259-19-99 15:50:00 Test Item Value Reference Range Interpretation Comments Segs (test code = Segs) 64.1 45.0-75.0 [facility] HospitalYrekhzhKHAMLGYFXY3943-32-40 15:50:00 Test Item Value Reference Range Interpretation Comments Lymphocytes (test code = Lymphocytes) 25.2 20.0-40.0 [facility] HospitalBxyjewkLDQXRENUHR1669-90-10 15:50:00 Test Item Value Reference Range Interpretation Comments Monocytes (test code = Monocytes) 9.5 2.0-12.0 [facility] HospitalFiohoziFXSMXSGLVA1131-89-69 15:50:00 Test Item Value Reference Range Interpretation Comments Lymphocytes # (test code = Lymphocytes 2.3 1.0-5.5 #) [facility] HospitalMishtusAAMEODZYED7663-68-59 15:50:00 Test Item Value Reference Range Interpretation Comments Monocytes # (test code 0.9 See_Comment [Aut omated message] The = Monocytes #) system which generated this result tra nsmitted reference range : <=0.8. The reference r nikki was not used to int erpret this result as normal/abnormal . [facility] HospitalOwttftaSAOXREZSDL1175-54-53 15:50:00 Test Item Value Reference Range Interpretation Comments Segs-Bands # (test code = Segs-Bands #) 5.8 1.5-8.1 [facility] HospitalUsablxrPUHZAKVDHB5638-48-03 15:50:00 Test Item Value Reference Range Interpretation Comments Hct (test code = Hct) 40.9 36.0-48.0 [facility] HospitalJoefdimBTEOGQPSZJ5144-67-72 15:50:00 Test Item Value Reference Range Interpretation Comments MCV (test code = MCV) 86.8 80.0-98.0 [facility] HospitalUktuyvxFDFATHQGBM1044-89-55 15:50:00 Test Item Value Reference Range Interpretation Comments MCH (test code = MCH) 28.0 pg 27.0-31.0 [facility] HospitalIhmhhskHEZDWTHQZW5563-48-91 15:50:00 Test Item Value Reference Range Interpretation Comments Hgb (test code = Hgb) 13.2 12.0-16.0 [facility] HospitalKzoiqkuZWYQNIQVSZ5087-76-29 15:50:00 Test Item Value Reference Range Interpretation Comments WBC (test code = WBC) 9.0 3.7-10.4 [facility] HospitalPrwlnrnPARXPBMRJY1913-66-07 15:50:00 Test Item Value Reference Range Interpretation Comments RBC (test code = RBC) 4.71 4.20-5.40 [facility] HospitalVdzdduaVWJROAVUBR1551-93-46 15:50:00 Test Item Value Reference Range Interpretation Comments RDW (test code = RDW) 13.6 11.5-14.5 [facility] HospitalAdlezyvOVFIDWKESM9278-39-26 15:50:00 Test Item Value Reference Range Interpretation Comments Platelet (test code = Platelet) 389 133-450 [facility] HospitalVpmrproNJNLELWLIX6251-95-67 15:50:00 Test Item Value Reference Range Interpretation Comments MPV (test code = MPV) 8.4 7.4-10.4 [facility] HospitalWuovcblRLYMVSAMNY2016-17-97 15:50:00 Test Item Value Reference Range Interpretation Comments MCHC (test code = MCHC) 32.3 32.0-36.0 [facility]2017-07-17 15:50:00 Test Item Value Reference Range Interpretation Comments eGFR (test code = eGFR) 123 [facility]2017-07-17 15:50:00 Test Item Value Reference Range Interpretation Comments Globulin (test code = Globulin) 4.0 2.7-4.2 [facility]2017-07-17 15:50:00 Test Item Value Reference Range Interpretation Comments A/G Ratio (test code = A/G Ratio) 0.8 0.7-1.6 [facility]2017-07-17 15:50:00 Test Item Value Reference Range Interpretation Comments B/C Ratio (test code = B/C Ratio) 6 6-25 [facility]2017-07-17 15:50:00 Test Item Value Reference Range Interpretation Comments AGAP (test code = AGAP) 12.6 10.0-20.0 [facility]2017-07-17 15:50:00 Test Item Value Reference Range Interpretation Comments Alk Phos (test code = Alk Phos) 58 39-136 [facility]2017-07-17 15:50:00 Test Item Value Reference Range Interpretation Comments Bili Total (test code = Bili Total) 0.5 0.2-1.3 [facility]2017-07-17 15:50:00 Test Item Value Reference Range Interpretation Comments AST (test code = AST) 11 See_Comment [Auto mated message] The system which ge nerated this result transmit rohit reference range : <=37. The reference range was not used to interpr et this result as flor l/abnormal. [facility]2017-07-17 15:50:00 Test Item Value Reference Range Interpretation Comments ALT (test code = ALT) 27 See_Comment [Auto mated message] The system which ge nerated this result transmit rohit reference range : <=65. The reference range was not used to interpr et this result as flor l/abnormal. [facility]2017-07-17 15:50:00 Test Item Value Reference Range Interpretation Comments Total Protein (test code = Total 7.4 6.4-8.4 Protein) [facility]2017-07-17 15:50:00 Test Item Value Reference Range Interpretation Comments Albumin Lvl (test code = Albumin Lvl) 3.4 3.5-5.0 [facility]2017-07-17 15:50:00 Test Item Value Reference Range Interpretation Comments Calcium Lvl (test code = Calcium Lvl) 8.7 8.5-10.5 [facility]2017-07-17 15:50:00 Test Item Value Reference Range Interpretation Comments CO2 (test code = CO2) 25 24-32 [facility]2017-07-17 15:50:00 Test Item Value Reference Range Interpretation Comments Chloride Lvl (test code = Chloride Lvl) 104 95-109 [facility]2017-07-17 15:50:00 Test Item Value Reference Range Interpretation Comments Sodium Lvl (test code = Sodium Lvl) 138 135-145 [facility]2017-07-17 15:50:00 Test Item Value Reference Range Interpretation Comments Potassium Lvl (test code = Potassium 3.6 3.5-5.1 Lvl) [facility]2017-07-17 15:50:00 Test Item Value Reference Range Interpretation Comments Glucose Lvl (test code = Glucose Lvl) 82 70-99 [facility]2017-07-17 15:50:00 Test Item Value Reference Range Interpretation Comments Creatinine Lvl (test code = Creatinine 0.71 0.50-1.40 Lvl) [facility]2017-07-17 15:50:00 Test Item Value Reference Range Interpretation Comments BUN (test code = BUN) 4 7-22 [facility]2017-07-17 15:50:00 Test Item Value Reference Range Interpretation Comments Phosphorus (test code = Phosphorus) 3.0 2.5-4.5 [facility]2017-07-17 15:50:00 Test Item Value Reference Range Interpretation Comments Magnesium Lvl (test code = Magnesium 2.3 1.8-2.4 Lvl) [facility] HospitalSlnejcuGUFJITZBJR3942-76-92 15:50:00 Test Item Value Reference Range Interpretation Comments Eosinophils # (test code 0.1 See_Comment [A utomated message] The = Eosinophils #) system whic h generated this result tra nsmitted reference range : <=0.5. The reference r nikki was not used to int erpret this result as normal/abnormal . [facility] HospitalGqdequvDQHNQLRICS0055-67-13 15:50:00 Test Item Value Reference Range Interpretation Comments Basophils # (test code 0.0 See_Comment [Aut omated message] The = Basophils #) system which generated this result tra nsmitted reference range : <=0.2. The reference r nikki was not used to int erpret this result as normal/abnormal . [facility] HospitalGjgdiqbEUZCEWLGKR3105-35-01 15:50:00 Test Item Value Reference Range Interpretation Comments Eosinophils (test code = 0.7 See_Comment [A utomated message] The Eosinophils) system which ge nerated this result tra nsmitted reference range : <=4.0. The reference r nikki was not used to int erpret this result as normal/abnormal . [facility] HospitalDnozvokMYQIHWQPUB1507-41-44 15:50:00 Test Item Value Reference Range Interpretation Comments Basophils (test code = 0.5 See_Comment [Aut omated message] The Basophils) system which ge nerated this result tra nsmitted reference range : <=1.0. The reference r nikki was not used to int erpret this result as normal/abnormal . [facility] HospitalHblhhpiIRRKQFIKJV8031-49-46 15:50:00 Test Item Value Reference Range Interpretation Comments RBC Morph (test code = Normal (02/12/17 10:50 RBC Morph) AM) [facility] HospitalWvwpomcWGPDQYFVWD9516-55-04 15:50:00 Test Item Value Reference Range Interpretation Comments Plt Morph (test code = Normal (02/12/17 10:50 Plt Morph) AM) [facility] HospitalLehndefHRNVNRCWON6359-18-89 15:50:00 Test Item Value Reference Range Interpretation Comments Segs (test code = Segs) 64.1 45.0-75.0 [facility] HospitalDxjgddaSBTIMFFHIH0250-14-98 15:50:00 Test Item Value Reference Range Interpretation Comments Lymphocytes (test code = Lymphocytes) 25.2 20.0-40.0 [facility] HospitalNlimpmtXVEQMTAOXJ3047-92-09 15:50:00 Test Item Value Reference Range Interpretation Comments Monocytes (test code = Monocytes) 9.5 2.0-12.0 [facility] HospitalIsdbhsxQPUBVEEMIV7164-03-28 15:50:00 Test Item Value Reference Range Interpretation Comments Lymphocytes # (test code = Lymphocytes 2.3 1.0-5.5 #) [facility] HospitalZghviayOHCASCNAQZ5073-91-88 15:50:00 Test Item Value Reference Range Interpretation Comments Monocytes # (test code 0.9 See_Comment [Aut omated message] The = Monocytes #) system which generated this result tra nsmitted reference range : <=0.8. The reference r nikki was not used to int erpret this result as normal/abnormal . [facility] HospitalPgyufxoFQSNOUDDUL5949-07-61 15:50:00 Test Item Value Reference Range Interpretation Comments Segs-Bands # (test code = Segs-Bands #) 5.8 1.5-8.1 [facility] HospitalXgwikaqGOSDWYSRDF6740-86-25 15:50:00 Test Item Value Reference Range Interpretation Comments Hct (test code = Hct) 40.9 36.0-48.0 [facility] HospitalDrffftuASHWUSTBRR0786-16-87 15:50:00 Test Item Value Reference Range Interpretation Comments MCV (test code = MCV) 86.8 80.0-98.0 [facility] HospitalGsvbfzdBMSQLYFOTA0244-24-84 15:50:00 Test Item Value Reference Range Interpretation Comments MCH (test code = MCH) 28.0 pg 27.0-31.0 [facility] HospitalKvljosnUNXQBDGNLG7280-89-64 15:50:00 Test Item Value Reference Range Interpretation Comments Hgb (test code = Hgb) 13.2 12.0-16.0 [facility] HospitalPucoltjFXZMGEMXNZ3054-28-03 15:50:00 Test Item Value Reference Range Interpretation Comments WBC (test code = WBC) 9.0 3.7-10.4 [facility] HospitalBnruvehRLDXLTAYHI6662-15-08 15:50:00 Test Item Value Reference Range Interpretation Comments RBC (test code = RBC) 4.71 4.20-5.40 [facility] HospitalTeqxnqtJQOMLFBGOD8997-01-88 15:50:00 Test Item Value Reference Range Interpretation Comments RDW (test code = RDW) 13.6 11.5-14.5 [facility] HospitalSmdpvovORNKTISWDZ7929-48-28 15:50:00 Test Item Value Reference Range Interpretation Comments Platelet (test code = Platelet) 389 133-450 [facility] HospitalYrndmtvGJQLWGXTQY2047-12-73 15:50:00 Test Item Value Reference Range Interpretation Comments MPV (test code = MPV) 8.4 7.4-10.4 [facility] HospitalQgsyiwvXIPJHTEOJN6971-97-18 15:50:00 Test Item Value Reference Range Interpretation Comments MCHC (test code = MCHC) 32.3 32.0-36.0 [facility]2017-07-17 15:50:00 Test Item Value Reference Range Interpretation Comments eGFR (test code = eGFR) 123 [facility]2017-07-17 15:50:00 Test Item Value Reference Range Interpretation Comments Globulin (test code = Globulin) 4.0 2.7-4.2 [facility]2017-07-17 15:50:00 Test Item Value Reference Range Interpretation Comments A/G Ratio (test code = A/G Ratio) 0.8 0.7-1.6 [facility]2017-07-17 15:50:00 Test Item Value Reference Range Interpretation Comments B/C Ratio (test code = B/C Ratio) 6 6-25 [facility]2017-07-17 15:50:00 Test Item Value Reference Range Interpretation Comments AGAP (test code = AGAP) 12.6 10.0-20.0 [facility]2017-07-17 15:50:00 Test Item Value Reference Range Interpretation Comments Alk Phos (test code = Alk Phos) 58 39-136 [facility]2017-07-17 15:50:00 Test Item Value Reference Range Interpretation Comments Bili Total (test code = Bili Total) 0.5 0.2-1.3 [facility]2017-07-17 15:50:00 Test Item Value Reference Range Interpretation Comments AST (test code = AST) 11 See_Comment [Auto mated message] The system which ge nerated this result transmit rohit reference range : <=37. The reference range was not used to interpr et this result as flor l/abnormal. [facility]2017-07-17 15:50:00 Test Item Value Reference Range Interpretation Comments ALT (test code = ALT) 27 See_Comment [Auto mated message] The system which ge nerated this result transmit rohit reference range : <=65. The reference range was not used to interpr et this result as flor l/abnormal. [facility]2017-07-17 15:50:00 Test Item Value Reference Range Interpretation Comments Total Protein (test code = Total 7.4 6.4-8.4 Protein) [facility]2017-07-17 15:50:00 Test Item Value Reference Range Interpretation Comments Albumin Lvl (test code = Albumin Lvl) 3.4 3.5-5.0 [facility]2017-07-17 15:50:00 Test Item Value Reference Range Interpretation Comments Calcium Lvl (test code = Calcium Lvl) 8.7 8.5-10.5 [facility]2017-07-17 15:50:00 Test Item Value Reference Range Interpretation Comments CO2 (test code = CO2) 25 24-32 [facility]2017-07-17 15:50:00 Test Item Value Reference Range Interpretation Comments Chloride Lvl (test code = Chloride Lvl) 104 95-109 [facility]2017-07-17 15:50:00 Test Item Value Reference Range Interpretation Comments Sodium Lvl (test code = Sodium Lvl) 138 135-145 [facility]2017-07-17 15:50:00 Test Item Value Reference Range Interpretation Comments Potassium Lvl (test code = Potassium 3.6 3.5-5.1 Lvl) [facility]2017-07-17 15:50:00 Test Item Value Reference Range Interpretation Comments Glucose Lvl (test code = Glucose Lvl) 82 70-99 [facility]2017-07-17 15:50:00 Test Item Value Reference Range Interpretation Comments Creatinine Lvl (test code = Creatinine 0.71 0.50-1.40 Lvl) [facility]2017-07-17 15:50:00 Test Item Value Reference Range Interpretation Comments BUN (test code = BUN) 4 7-22 [place] 811237-07-17 15:50:00 Test Item Value Reference Range Interpretation Comments Phosphorus (test code = Phosphorus) 3.0 2.5-4.5 [facility]2017-07-17 15:50:00 Test Item Value Reference Range Interpretation Comments Magnesium Lvl (test code = Magnesium 2.3 1.8-2.4 Lvl) [facility] HospitalWrbeawnIXDELQXFSQ9077-99-78 15:50:00 Test Item Value Reference Range Interpretation Comments Eosinophils # (test code 0.1 See_Comment [A utomated message] The = Eosinophils #) system whic h generated this result tra nsmitted reference range : <=0.5. The reference r nikki was not used to int erpret this result as normal/abnormal . [facility] HospitalMprowtgHHZHDUCOXB1412-40-53 15:50:00 Test Item Value Reference Range Interpretation Comments Basophils # (test code 0.0 See_Comment [Aut omated message] The = Basophils #) system which generated this result tra nsmitted reference range : <=0.2. The reference r nikki was not used to int erpret this result as normal/abnormal . [facility] HospitalHxsvnjuWMIWGMAOOU8714-29-35 15:50:00 Test Item Value Reference Range Interpretation Comments Eosinophils (test code = 0.7 See_Comment [A utomated message] The Eosinophils) system which ge nerated this result tra nsmitted reference range : <=4.0. The reference r nikki was not used to int erpret this result as normal/abnormal . [facility] HospitalSwazzjyXJYRGQVVNO4932-74-64 15:50:00 Test Item Value Reference Range Interpretation Comments Basophils (test code = 0.5 See_Comment [Aut omated message] The Basophils) system which ge nerated this result tra nsmitted reference range : <=1.0. The reference r nikki was not used to int erpret this result as normal/abnormal . [facility] HospitalCyjwnxjLOOXGJXEYG6582-38-32 15:50:00 Test Item Value Reference Range Interpretation Comments RBC Morph (test code = Normal (02/12/17 10:50 RBC Morph) AM) [facility] HospitalKtejokqYWIFCEBXPE1381-93-00 15:50:00 Test Item Value Reference Range Interpretation Comments Plt Morph (test code = Normal (02/12/17 10:50 Plt Morph) AM) [facility] HospitalOzrfcloLULGARLCNJ4755-67-57 15:50:00 Test Item Value Reference Range Interpretation Comments Segs (test code = Segs) 64.1 45.0-75.0 [facility] HospitalKbijzwhMQHTHBZWVS3006-97-56 15:50:00 Test Item Value Reference Range Interpretation Comments Lymphocytes (test code = Lymphocytes) 25.2 20.0-40.0 [facility] HospitalBhwbgfeTZWUXGOTPS9836-10-05 15:50:00 Test Item Value Reference Range Interpretation Comments Monocytes (test code = Monocytes) 9.5 2.0-12.0 [facility] HospitalRizosgfXWMKDGUEVH2371-43-11 15:50:00 Test Item Value Reference Range Interpretation Comments Lymphocytes # (test code = Lymphocytes 2.3 1.0-5.5 #) [facility] HospitalFzsqvroKSWVESLYQD8195-89-27 15:50:00 Test Item Value Reference Range Interpretation Comments Monocytes # (test code 0.9 See_Comment [Aut omated message] The = Monocytes #) system which generated this result tra nsmitted reference range : <=0.8. The reference r nikki was not used to int erpret this result as normal/abnormal . [facility] HospitalYzrqsldQVUYYDGUAW7744-71-57 15:50:00 Test Item Value Reference Range Interpretation Comments Segs-Bands # (test code = Segs-Bands #) 5.8 1.5-8.1 [facility] HospitalNgatpztUXAFNMGEVE9183-10-09 15:50:00 Test Item Value Reference Range Interpretation Comments Hct (test code = Hct) 40.9 36.0-48.0 [facility] HospitalQmjcrkhXBGEWZGWIT3331-60-26 15:50:00 Test Item Value Reference Range Interpretation Comments MCV (test code = MCV) 86.8 80.0-98.0 [facility] HospitalTvaftphFEHWHKQPTZ6772-05-33 15:50:00 Test Item Value Reference Range Interpretation Comments MCH (test code = MCH) 28.0 pg 27.0-31.0 [facility] HospitalUctqfupYNIDFXJMBR6447-30-42 15:50:00 Test Item Value Reference Range Interpretation Comments Hgb (test code = Hgb) 13.2 12.0-16.0 [facility] HospitalVidzrohNPETHYCJMH2400-82-44 15:50:00 Test Item Value Reference Range Interpretation Comments WBC (test code = WBC) 9.0 3.7-10.4 [facility] HospitalHmgmbeqOLFHMLQPGT5337-01-04 15:50:00 Test Item Value Reference Range Interpretation Comments RBC (test code = RBC) 4.71 4.20-5.40 [facility] HospitalRykguqjCUHRSYMJGN0437-01-82 15:50:00 Test Item Value Reference Range Interpretation Comments RDW (test code = RDW) 13.6 11.5-14.5 [facility] HospitalQrnssyhAEHZTXFSVQ7822-79-42 15:50:00 Test Item Value Reference Range Interpretation Comments Platelet (test code = Platelet) 389 133-450 [facility] HospitalTcsutpvMNMPFTRWHL7014-97-73 15:50:00 Test Item Value Reference Range Interpretation Comments MPV (test code = MPV) 8.4 7.4-10.4 [facility] HospitalUnjmvogSHRAKXJCTS0394-23-13 15:50:00 Test Item Value Reference Range Interpretation Comments MCHC (test code = MCHC) 32.3 32.0-36.0 [facility]2017-07-17 15:50:00 Test Item Value Reference Range Interpretation Comments eGFR (test code = eGFR) 123 [facility]2017-07-17 15:50:00 Test Item Value Reference Range Interpretation Comments Globulin (test code = Globulin) 4.0 2.7-4.2 [facility]2017-07-17 15:50:00 Test Item Value Reference Range Interpretation Comments A/G Ratio (test code = A/G Ratio) 0.8 0.7-1.6 [facility]2017-07-17 15:50:00 Test Item Value Reference Range Interpretation Comments B/C Ratio (test code = B/C Ratio) 6 6-25 [facility]2017-07-17 15:50:00 Test Item Value Reference Range Interpretation Comments AGAP (test code = AGAP) 12.6 10.0-20.0 [facility]2017-07-17 15:50:00 Test Item Value Reference Range Interpretation Comments Alk Phos (test code = Alk Phos) 58 39-136 [facility]2017-07-17 15:50:00 Test Item Value Reference Range Interpretation Comments Bili Total (test code = Bili Total) 0.5 0.2-1.3 [facility]2017-07-17 15:50:00 Test Item Value Reference Range Interpretation Comments AST (test code = AST) 11 See_Comment [Auto mated message] The system which ge nerated this result transmit rohit reference range : <=37. The reference range was not used to interpr et this result as flor l/abnormal. [facility]2017-07-17 15:50:00 Test Item Value Reference Range Interpretation Comments ALT (test code = ALT) 27 See_Comment [Auto mated message] The system which ge nerated this result transmit rohit reference range : <=65. The reference range was not used to interpr et this result as flor l/abnormal. [facility]2017-07-17 15:50:00 Test Item Value Reference Range Interpretation Comments Total Protein (test code = Total 7.4 6.4-8.4 Protein) [facility]2017-07-17 15:50:00 Test Item Value Reference Range Interpretation Comments Albumin Lvl (test code = Albumin Lvl) 3.4 3.5-5.0 [facility]2017-07-17 15:50:00 Test Item Value Reference Range Interpretation Comments Calcium Lvl (test code = Calcium Lvl) 8.7 8.5-10.5 [facility]2017-07-17 15:50:00 Test Item Value Reference Range Interpretation Comments CO2 (test code = CO2) 25 24-32 [facility]2017-07-17 15:50:00 Test Item Value Reference Range Interpretation Comments Chloride Lvl (test code = Chloride Lvl) 104 95-109 [facility]2017-07-17 15:50:00 Test Item Value Reference Range Interpretation Comments Sodium Lvl (test code = Sodium Lvl) 138 135-145 [facility]2017-07-17 15:50:00 Test Item Value Reference Range Interpretation Comments Potassium Lvl (test code = Potassium 3.6 3.5-5.1 Lvl) [facility]2017-07-17 15:50:00 Test Item Value Reference Range Interpretation Comments Glucose Lvl (test code = Glucose Lvl) 82 70-99 [facility]2017-07-17 15:50:00 Test Item Value Reference Range Interpretation Comments Creatinine Lvl (test code = Creatinine 0.71 0.50-1.40 Lvl) [facility]2017-07-17 15:50:00 Test Item Value Reference Range Interpretation Comments BUN (test code = BUN) 4 7-22 [facility]2017-07-17 15:50:00 Test Item Value Reference Range Interpretation Comments Phosphorus (test code = Phosphorus) 3.0 2.5-4.5 [facility]2017-07-17 15:50:00 Test Item Value Reference Range Interpretation Comments Magnesium Lvl (test code = Magnesium 2.3 1.8-2.4 Lvl) [facility]YlfmvloNBFWOTSDBX6432-17-42 15:50:00 Test Item Value Reference Range Interpretation Comments Eosinophils # (test code 0.1 See_Comment [A utomated message] The = Eosinophils #) system whic h generated this result tra nsmitted reference range : <=0.5. The reference r nikki was not used to int erpret this result as normal/abnormal . [facility] HospitalCfvrnrnJZCUHRQLFD0737-97-60 15:50:00 Test Item Value Reference Range Interpretation Comments Basophils # (test code 0.0 See_Comment [Aut omated message] The = Basophils #) system which generated this result tra nsmitted reference range : <=0.2. The reference r nikki was not used to int erpret this result as normal/abnormal . [facility] HospitalInzbfplHRIHPIBBZC3660-45-58 15:50:00 Test Item Value Reference Range Interpretation Comments Eosinophils (test code = 0.7 See_Comment [A utomated message] The Eosinophils) system which ge nerated this result tra nsmitted reference range : <=4.0. The reference r nikki was not used to int erpret this result as normal/abnormal . [facility] HospitalEgdpwjcPQKTBAMVAE9123-25-13 15:50:00 Test Item Value Reference Range Interpretation Comments Basophils (test code = 0.5 See_Comment [Aut omated message] The Basophils) system which ge nerated this result tra nsmitted reference range : <=1.0. The reference r nikki was not used to int erpret this result as normal/abnormal . [facility] HospitalXvbtmkqBTAWQZKEGR5477-70-45 15:50:00 Test Item Value Reference Range Interpretation Comments RBC Morph (test code = Normal (02/12/17 10:50 RBC Morph) AM) [facility] HospitalNdrqbqvCJJAQZEHNW3893-50-00 15:50:00 Test Item Value Reference Range Interpretation Comments Plt Morph (test code = Normal (02/12/17 10:50 Plt Morph) AM) [facility] HospitalGuwimdjUSMVJUHRZB9645-63-33 15:50:00 Test Item Value Reference Range Interpretation Comments Segs (test code = Segs) 64.1 45.0-75.0 [facility] HospitalCignorxPGIKQACUJB9442-62-76 15:50:00 Test Item Value Reference Range Interpretation Comments Lymphocytes (test code = Lymphocytes) 25.2 20.0-40.0 [facility] HospitalTuzzzbeXBYDWIFWAC4677-10-74 15:50:00 Test Item Value Reference Range Interpretation Comments Monocytes (test code = Monocytes) 9.5 2.0-12.0 [facility] HospitalPnuyoxdWNEWXADOEX0603-51-97 15:50:00 Test Item Value Reference Range Interpretation Comments Lymphocytes # (test code = Lymphocytes 2.3 1.0-5.5 #) [facility] HospitalIvtrdpsTLGYXXSPYJ9083-75-36 15:50:00 Test Item Value Reference Range Interpretation Comments Monocytes # (test code 0.9 See_Comment [Aut omated message] The = Monocytes #) system which generated this result tra nsmitted reference range : <=0.8. The reference r nikki was not used to int erpret this result as normal/abnormal . [facility] HospitalZghxwnbCQQMXPIFDS5039-85-37 15:50:00 Test Item Value Reference Range Interpretation Comments Segs-Bands # (test code = Segs-Bands #) 5.8 1.5-8.1 [facility] HospitalCpzkohwHQBBPXTYNO7973-73-28 15:50:00 Test Item Value Reference Range Interpretation Comments Hct (test code = Hct) 40.9 36.0-48.0 [facility] HospitalAqfgimnXMYZMAWZDN1097-54-79 15:50:00 Test Item Value Reference Range Interpretation Comments MCV (test code = MCV) 86.8 80.0-98.0 [facility] HospitalDqoofacNFSZWWVZPJ2486-46-07 15:50:00 Test Item Value Reference Range Interpretation Comments MCH (test code = MCH) 28.0 pg 27.0-31.0 [facility] HospitalOsvsrylUIKYVPGJZY1194-96-87 15:50:00 Test Item Value Reference Range Interpretation Comments Hgb (test code = Hgb) 13.2 12.0-16.0 [facility] HospitalSrhvsuaTSZTHIDIQF5076-26-28 15:50:00 Test Item Value Reference Range Interpretation Comments WBC (test code = WBC) 9.0 3.7-10.4 [facility]dp[facility]CYGZQAODOB8974-28-46 15:50:00 Test Item Value Reference Range Interpretation Comments RBC (test code = RBC) 4.71 4.20-5.40 [facility]YezeewfOQIUYIGCTQ3923-92-95 15:50:00 Test Item Value Reference Range Interpretation Comments RDW (test code = RDW) 13.6 11.5-14.5 [facility] HospitalPbelfhyRXCSKMNILO9636-75-02 15:50:00 Test Item Value Reference Range Interpretation Comments Platelet (test code = Platelet) 389 133-450 [facility] HospitalMxfukotEGAJMXVXIN9372-74-34 15:50:00 Test Item Value Reference Range Interpretation Comments MPV (test code = MPV) 8.4 7.4-10.4 [facility] HospitalFgwelqvXNKMNLROXJ3732-53-66 15:50:00 Test Item Value Reference Range Interpretation Comments MCHC (test code = MCHC) 32.3 32.0-36.0 [facility]qonltwZMYIUHJKZPWL0139-76-49 09:27:00 Test Item Value Reference Range Interpretation Comments Total Protein (test code = Total 7.4 6.4-8.4 Protein) [facility] HospitalEhcmkssMFBBADVCHE2756-10-07 09:27:00 Test Item Value Reference Range Interpretation Comments RBC (test code = RBC) 4.76 4.20-5.40 [facility] HospitalJqtarzoVZKQQYZRIT8151-23-63 09:27:00 Test Item Value Reference Range Interpretation Comments Hgb (test code = Hgb) 13.4 12.0-16.0 [facility] HospitalLrlpjfgQKCZVLKNNF9710-13-20 09:27:00 Test Item Value Reference Range Interpretation Comments WBC (test code = WBC) 14.5 3.7-10.4 [facility]PhwsgndOYXLJTXSUA0188-99-39 09:27:00 Test Item Value Reference Range Interpretation Comments Hct (test code = Hct) 41.0 36.0-48.0 [facility] HospitalDgmbrijFQHQABWZKZ3457-66-85 09:27:00 Test Item Value Reference Range Interpretation Comments MCV (test code = MCV) 86.1 80.0-98.0 [facility] RegionRvzwmzbSLETRUUPTE3968-52-79 09:27:00 Test Item Value Reference Range Interpretation Comments MPV (test code = MPV) 8.6 7.4-10.4 [facility] HospitalTprbjmuHKDXTSNLCI2994-14-31 09:27:00 Test Item Value Reference Range Interpretation Comments MCHC (test code = MCHC) 32.6 32.0-36.0 [facility] HospitalXxwgeykBJUMWLEACA6744-56-96 09:27:00 Test Item Value Reference Range Interpretation Comments MCH (test code = MCH) 28.1 pg 27.0-31.0 [facility] HospitalFfwtzlzVXNKHMKYQY8961-60-04 09:27:00 Test Item Value Reference Range Interpretation Comments RDW (test code = RDW) 13.6 11.5-14.5 [facility] HospitalExowwhfGBAYPIHJIH1286-38-72 09:27:00 Test Item Value Reference Range Interpretation Comments Platelet (test code = Platelet) 423 133-450 [facility] HospitalMereuiiTJGVQLSDSY4096-11-45 09:27:00 Test Item Value Reference Range Interpretation Comments Lymphocytes (test code = Lymphocytes) 15.1 20.0-40.0 [facility] HospitalRhsaxinFSFKINKFOO3830-10-09 09:27:00 Test Item Value Reference Range Interpretation Comments Monocytes (test code = Monocytes) 6.2 2.0-12.0 [facility] HospitalVttkabbBEGRJHTHNG5950-53-65 09:27:00 Test Item Value Reference Range Interpretation Comments Segs (test code = Segs) 77.7 45.0-75.0 [facility] HospitalNkdnaacNNGUIFKHCE2314-12-93 09:27:00 Test Item Value Reference Range Interpretation Comments Segs-Bands # (test code = Segs-Bands #) 11.3 1.5-8.1 [facility] HospitalJqjxrosMWLEPCUWDH8870-48-44 09:27:00 Test Item Value Reference Range Interpretation Comments Eosinophils (test code = 0.0 See_Comment [A utomated message] The Eosinophils) system which ge nerated this result tra nsmitted reference range : <=4.0. The reference r nikki was not used to int erpret this result as normal/abnormal . [facility] HospitalPujkaxlZPHCISGCCV6187-53-18 09:27:00 Test Item Value Reference Range Interpretation Comments Basophils (test code = 1.0 See_Comment [Aut omated message] The Basophils) system which ge nerated this result tra nsmitted reference range : <=1.0. The reference r nikki was not used to int erpret this result as normal/abnormal . [place] 209917-07-16 09:27:00 Test Item Value Reference Range Interpretation Comments Lymphocytes # (test code = Lymphocytes 2.2 1.0-5.5 #) [facility] HospitalBwagtutVGVNBUHSBY9268-28-62 09:27:00 Test Item Value Reference Range Interpretation Comments Monocytes # (test code 0.9 See_Comment [Aut omated message] The = Monocytes #) system which generated this result tra nsmitted reference range : <=0.8. The reference r nikki was not used to int erpret this result as normal/abnormal . [facility] HospitalRhndfsfSCFWLKLOOL5206-55-07 09:27:00 Test Item Value Reference Range Interpretation Comments Eosinophils # (test code 0.0 See_Comment [A utomated message] The = Eosinophils #) system whic h generated this result tra nsmitted reference range : <=0.5. The reference r nikki was not used to int erpret this result as normal/abnormal . [facility] HospitalZekqjenOUOYQYCSIA0311-27-70 09:27:00 Test Item Value Reference Range Interpretation Comments Basophils # (test code 0.1 See_Comment [Aut omated message] The = Basophils #) system which generated this result tra nsmitted reference range : <=0.2. The reference r nikki was not used to int erpret this result as normal/abnormal . [facility]YjsyskdDNIBDSLYVHET0310-80-33 09:27:00 Test Item Value Reference Range Interpretation Comments CO2 (test code = CO2) 25 24-32 [facility]FtfabtnCIUQAGXAJYKI1565-97-68 09:27:00 Test Item Value Reference Range Interpretation Comments Potassium Lvl (test code = Potassium 2.9 3.5-5.1 Lvl) [facility] HospitalOygwghpMVAQZVWORKNE4929-28-38 09:27:00 Test Item Value Reference Range Interpretation Comments Sodium Lvl (test code = Sodium Lvl) 138 135-145 [facility] HospitalWphdoovRQDXGOPYOZDW0048-06-07 09:27:00 Test Item Value Reference Range Interpretation Comments Creatinine Lvl (test code = Creatinine 0.70 0.50-1.40 Lvl) [facility] HospitalHcjdntiXRJXBSIPNEQX8969-82-58 09:27:00 Test Item Value Reference Range Interpretation Comments Chloride Lvl (test code = Chloride Lvl) 103 95-109 [facility] HospitalDrsrbceVZDXJXDNIDCF9998-14-91 09:27:00 Test Item Value Reference Range Interpretation Comments AGAP (test code = AGAP) 12.9 10.0-20.0 [facility] HospitalGydaykfOQDYKKEZPGWB6340-35-22 09:27:00 Test Item Value Reference Range Interpretation Comments eGFR (test code = eGFR) 124 [facility] HospitalGoffpedSTOGYXHELCTV0246-29-92 09:27:00 Test Item Value Reference Range Interpretation Comments Calcium Lvl (test code = Calcium Lvl) 8.3 8.5-10.5 [facility] HospitalKpewmokYKMBGKPHJWQU4821-35-36 09:27:00 Test Item Value Reference Range Interpretation Comments Bili Total (test code = Bili Total) 0.5 0.2-1.3 [facility] HospitalNvayswgIAHOGJRAJNBI1013-24-29 09:27:00 Test Item Value Reference Range Interpretation Comments B/C Ratio (test code = B/C Ratio) 10 6-25 [facility] HospitalIyivyauYGSMCEXLSZTG8443-93-71 09:27:00 Test Item Value Reference Range Interpretation Comments AST (test code = AST) 10 See_Comment [Auto mated message] The system which ge nerated this result transmit rohit reference range : <=37. The reference range was not used to interpr et this result as flor l/abnormal. [facility] HospitalWbzonazUGCCWOJVXPGP9431-02-42 09:27:00 Test Item Value Reference Range Interpretation Comments ALT (test code = ALT) 28 See_Comment [Auto mated message] The system which ge nerated this result transmit rohit reference range : <=65. The reference range was not used to interpr et this result as flor l/abnormal. [facility] HospitalZdwnvzsQNEUFAUPUDAH8670-31-78 09:27:00 Test Item Value Reference Range Interpretation Comments A/G Ratio (test code = A/G Ratio) 0.8 0.7-1.6 [facility] HospitalGlhhwvfJQGBQSMBHMPV7608-05-90 09:27:00 Test Item Value Reference Range Interpretation Comments BUN (test code = BUN) 7 7-22 [facility] HospitalNrdhbjkNADWXXAAOLGY0831-53-58 09:27:00 Test Item Value Reference Range Interpretation Comments Glucose Lvl (test code = Glucose Lvl) 99 70-99 [facility] HospitalLgjtnnuDBJQIDAEWPXD5777-96-94 09:27:00 Test Item Value Reference Range Interpretation Comments Alk Phos (test code = Alk Phos) 58 39-136 [facility] HospitalLipffvxEVIVUVDVDWKC3136-97-81 09:27:00 Test Item Value Reference Range Interpretation Comments Globulin (test code = Globulin) 4.0 2.7-4.2 [facility] HospitalWcjszedMOALJQDYBAYQ2555-84-88 09:27:00 Test Item Value Reference Range Interpretation Comments Albumin Lvl (test code = Albumin Lvl) 3.4 3.5-5.0 [facility] HospitalJhpqmlyKAPMWERGZIQD7031-71-60 09:27:00 Test Item Value Reference Range Interpretation Comments Total Protein (test code = Total 7.4 6.4-8.4 Protein) [facility] HospitalTsqfbmrHIWKGPAQSF6339-97-52 09:27:00 Test Item Value Reference Range Interpretation Comments RBC (test code = RBC) 4.76 4.20-5.40 [facility] HospitalMsqaohuAXGIWPGTSN7166-52-52 09:27:00 Test Item Value Reference Range Interpretation Comments Hgb (test code = Hgb) 13.4 12.0-16.0 [facility] HospitalBjpmasxIZFWEEDUSL6128-70-66 09:27:00 Test Item Value Reference Range Interpretation Comments WBC (test code = WBC) 14.5 3.7-10.4 [facility] HospitalQuketjsWBROAGPGSU7258-42-94 09:27:00 Test Item Value Reference Range Interpretation Comments Hct (test code = Hct) 41.0 36.0-48.0 [facility] HospitalYecmoqnLFQNIFGDRW0829-11-26 09:27:00 Test Item Value Reference Range Interpretation Comments MCV (test code = MCV) 86.1 80.0-98.0 [facility] HospitalXmasrxiFXYCLEKVMP0342-79-64 09:27:00 Test Item Value Reference Range Interpretation Comments MPV (test code = MPV) 8.6 7.4-10.4 [facility] HospitalJwotedfKGGAITMUIE0473-91-75 09:27:00 Test Item Value Reference Range Interpretation Comments MCHC (test code = MCHC) 32.6 32.0-36.0 [facility] HospitalIzttwwhCIVPHRINNK2746-11-38 09:27:00 Test Item Value Reference Range Interpretation Comments MCH (test code = MCH) 28.1 pg 27.0-31.0 [facility] HospitalDsbpzdtMAZPXVRCBY0136-97-42 09:27:00 Test Item Value Reference Range Interpretation Comments RDW (test code = RDW) 13.6 11.5-14.5 [facility] HospitalGccjkzzOGUCYTYILG6815-75-14 09:27:00 Test Item Value Reference Range Interpretation Comments Platelet (test code = Platelet) 423 133-450 [facility] HospitalZavjgcdOCKPNOVAAH6684-50-09 09:27:00 Test Item Value Reference Range Interpretation Comments Lymphocytes (test code = Lymphocytes) 15.1 20.0-40.0 [facility] HospitalIjkgiviFIPPLVUPGL6329-31-65 09:27:00 Test Item Value Reference Range Interpretation Comments Monocytes (test code = Monocytes) 6.2 2.0-12.0 [facility] HospitalUoyvyeoYXYSYIZSWZ8208-57-25 09:27:00 Test Item Value Reference Range Interpretation Comments Segs (test code = Segs) 77.7 45.0-75.0 [facility] HospitalGddqsxqKJPSQWVKHS8007-37-09 09:27:00 Test Item Value Reference Range Interpretation Comments Segs-Bands # (test code = Segs-Bands #) 11.3 1.5-8.1 [facility] HospitalLzvnrtjHXVTREKINI4361-02-10 09:27:00 Test Item Value Reference Range Interpretation Comments Eosinophils (test code = 0.0 See_Comment [A utomated message] The Eosinophils) system which ge nerated this result tra nsmitted reference range : <=4.0. The reference r nikki was not used to int erpret this result as normal/abnormal . [facility] HospitalGdqjggnRRVBIMZUIX3059-60-23 09:27:00 Test Item Value Reference Range Interpretation Comments Basophils (test code = 1.0 See_Comment [Aut omated message] The Basophils) system which ge nerated this result tra nsmitted reference range : <=1.0. The reference r nikki was not used to int erpret this result as normal/abnormal . [facility] HospitalPinhupdZTALZZNNMY5088-71-21 09:27:00 Test Item Value Reference Range Interpretation Comments Lymphocytes # (test code = Lymphocytes 2.2 1.0-5.5 #) [facility] HospitalSurjlptBFLSAPVWMB9762-59-54 09:27:00 Test Item Value Reference Range Interpretation Comments Monocytes # (test code 0.9 See_Comment [Aut omated message] The = Monocytes #) system which generated this result tra nsmitted reference range : <=0.8. The reference r nikki was not used to int erpret this result as normal/abnormal . [facility] HospitalUjejdkpSNYMBIDTYB5422-47-25 09:27:00 Test Item Value Reference Range Interpretation Comments Eosinophils # (test code 0.0 See_Comment [A utomated message] The = Eosinophils #) system whic h generated this result tra nsmitted reference range : <=0.5. The reference r nikki was not used to int erpret this result as normal/abnormal . [facility] HospitalQcfnhmbJJGIKKRARQ1785-50-27 09:27:00 Test Item Value Reference Range Interpretation Comments Basophils # (test code 0.1 See_Comment [Aut omated message] The = Basophils #) system which generated this result tra nsmitted reference range : <=0.2. The reference r nikki was not used to int erpret this result as normal/abnormal . [facility] HospitalZbrvnqcZJHXYNYRGTZU5139-83-82 09:27:00 Test Item Value Reference Range Interpretation Comments CO2 (test code = CO2) 25 24-32 [facility] HospitalDrnwwhcCHGUZJVBUOCG4251-80-67 09:27:00 Test Item Value Reference Range Interpretation Comments Potassium Lvl (test code = Potassium 2.9 3.5-5.1 Lvl) [facility] HospitalTrwijxpFNHYLOVWJPFF8635-19-22 09:27:00 Test Item Value Reference Range Interpretation Comments Sodium Lvl (test code = Sodium Lvl) 138 135-145 [facility] HospitalNdspbtzRBCWAMOQCKVK4066-07-13 09:27:00 Test Item Value Reference Range Interpretation Comments Creatinine Lvl (test code = Creatinine 0.70 0.50-1.40 Lvl) [facility] HospitalRjacbmxCHHGRAOQUYTQ1082-01-62 09:27:00 Test Item Value Reference Range Interpretation Comments Chloride Lvl (test code = Chloride Lvl) 103 95-109 [facility] HospitalVacgfgrRJBOXPPQFGHC8850-56-78 09:27:00 Test Item Value Reference Range Interpretation Comments AGAP (test code = AGAP) 12.9 10.0-20.0 [facility] HospitalQvcgrspYERMLEHWSVBH6320-31-56 09:27:00 Test Item Value Reference Range Interpretation Comments eGFR (test code = eGFR) 124 [facility] HospitalSnhshqjCKLTMSRIZCJF3284-39-91 09:27:00 Test Item Value Reference Range Interpretation Comments Calcium Lvl (test code = Calcium Lvl) 8.3 8.5-10.5 [facility] HospitalEcbefpwQVWYJMSTEDFQ3252-23-91 09:27:00 Test Item Value Reference Range Interpretation Comments Bili Total (test code = Bili Total) 0.5 0.2-1.3 [facility] HospitalFnajfnoBVZXCJCQSKXS0157-32-86 09:27:00 Test Item Value Reference Range Interpretation Comments B/C Ratio (test code = B/C Ratio) 10 6-25 [facility] HospitalGvacnyzUDTDPEAGRPXY3791-04-74 09:27:00 Test Item Value Reference Range Interpretation Comments AST (test code = AST) 10 See_Comment [Auto mated message] The system which ge nerated this result transmit rohit reference range : <=37. The reference range was not used to interpr et this result as flor l/abnormal. [facility] HospitalOaptunpNWVIITBQCHAP6520-62-88 09:27:00 Test Item Value Reference Range Interpretation Comments ALT (test code = ALT) 28 See_Comment [Auto mated message] The system which ge nerated this result transmit rohit reference range : <=65. The reference range was not used to interpr et this result as flor l/abnormal. [facility] HospitalJwfqldgUKEVYMKEPKTW0465-36-89 09:27:00 Test Item Value Reference Range Interpretation Comments A/G Ratio (test code = A/G Ratio) 0.8 0.7-1.6 [facility] HospitalFwdddzyGGRHVBILQUWM5380-54-03 09:27:00 Test Item Value Reference Range Interpretation Comments BUN (test code = BUN) 7 7-22 [facility] HospitalYztylzjEGCSWYYEFWKY9996-28-92 09:27:00 Test Item Value Reference Range Interpretation Comments Glucose Lvl (test code = Glucose Lvl) 99 70-99 [facility] HospitalDvrjopnCMKXUMNSUYNP7187-82-09 09:27:00 Test Item Value Reference Range Interpretation Comments Alk Phos (test code = Alk Phos) 58 39-136 [facility] HospitalQegjfvlXQXFISFFIACX7110-74-04 09:27:00 Test Item Value Reference Range Interpretation Comments Globulin (test code = Globulin) 4.0 2.7-4.2 [facility] HospitalZizmxkpUXABBRGXNWAE6351-52-27 09:27:00 Test Item Value Reference Range Interpretation Comments Albumin Lvl (test code = Albumin Lvl) 3.4 3.5-5.0 [facility] HospitalGdvukapWBPKSFBGCLUN6771-90-83 09:27:00 Test Item Value Reference Range Interpretation Comments Total Protein (test code = Total 7.4 6.4-8.4 Protein) [facility] HospitalMwdyxgbKYROKJHREO0768-59-53 09:27:00 Test Item Value Reference Range Interpretation Comments RBC (test code = RBC) 4.76 4.20-5.40 [facility] HospitalQbnzbmaDTVNBEAFFY8361-86-65 09:27:00 Test Item Value Reference Range Interpretation Comments Hgb (test code = Hgb) 13.4 12.0-16.0 [facility] HospitalFjvxwwtUHZGWKOPBE1867-58-79 09:27:00 Test Item Value Reference Range Interpretation Comments WBC (test code = WBC) 14.5 3.7-10.4 [facility] HospitalAsmobmzUDIWKZNTMN8630-47-05 09:27:00 Test Item Value Reference Range Interpretation Comments Hct (test code = Hct) 41.0 36.0-48.0 [facility] HospitalDosjjioJTFKMIIAIF2930-84-35 09:27:00 Test Item Value Reference Range Interpretation Comments MCV (test code = MCV) 86.1 80.0-98.0 [facility] HospitalEdoiskvVBZPLDEIBJ1426-60-03 09:27:00 Test Item Value Reference Range Interpretation Comments MPV (test code = MPV) 8.6 7.4-10.4 [facility] HospitalUodolxuXTRGOANIXE6518-27-40 09:27:00 Test Item Value Reference Range Interpretation Comments MCHC (test code = MCHC) 32.6 32.0-36.0 [facility] HospitalTlrckbkJMOUUFHANN8680-14-57 09:27:00 Test Item Value Reference Range Interpretation Comments MCH (test code = MCH) 28.1 pg 27.0-31.0 [facility] HospitalZmcbdxxSRYTMCLUGL9960-95-88 09:27:00 Test Item Value Reference Range Interpretation Comments RDW (test code = RDW) 13.6 11.5-14.5 [facility] HospitalRkdbqtsZAHKLNSFYR1582-82-53 09:27:00 Test Item Value Reference Range Interpretation Comments Platelet (test code = Platelet) 423 133-450 [facility] HospitalMjodeyaGNDTEXRYMQ7418-84-38 09:27:00 Test Item Value Reference Range Interpretation Comments Lymphocytes (test code = Lymphocytes) 15.1 20.0-40.0 [facility] HospitalKszwzutGFYZFZPZJH5985-39-60 09:27:00 Test Item Value Reference Range Interpretation Comments Monocytes (test code = Monocytes) 6.2 2.0-12.0 [facility] HospitalOtwgdayGAYSIOOTAK4047-45-72 09:27:00 Test Item Value Reference Range Interpretation Comments Segs (test code = Segs) 77.7 45.0-75.0 [facility] [facility]HxxhnzjPWAZRIVMBA3818-95-40 09:27:00 Test Item Value Reference Range Interpretation Comments Segs-Bands # (test code = Segs-Bands #) 11.3 1.5-8.1 [facility] HospitalRhqwwarISUXFSDPSM6760-21-12 09:27:00 Test Item Value Reference Range Interpretation Comments Eosinophils (test code = 0.0 See_Comment [A utomated message] The Eosinophils) system which ge nerated this result tra nsmitted reference range : <=4.0. The reference r nikki was not used to int erpret this result as normal/abnormal . [facility] HospitalGvofwqrOQYFYEWUEX1884-71-20 09:27:00 Test Item Value Reference Range Interpretation Comments Basophils (test code = 1.0 See_Comment [Aut omated message] The Basophils) system which ge nerated this result tra nsmitted reference range : <=1.0. The reference r nikki was not used to int erpret this result as normal/abnormal . [facility] HospitalBbvnerpJMNSGOVMTQ1545-56-14 09:27:00 Test Item Value Reference Range Interpretation Comments Lymphocytes # (test code = Lymphocytes 2.2 1.0-5.5 #) [facility] HospitalUnhjfesDOBAELOCEP2000-43-10 09:27:00 Test Item Value Reference Range Interpretation Comments Monocytes # (test code 0.9 See_Comment [Aut omated message] The = Monocytes #) system which generated this result tra nsmitted reference range : <=0.8. The reference r nikki was not used to int erpret this result as normal/abnormal . [facility] HospitalZfhbjllBAMTWLQPZY6492-49-81 09:27:00 Test Item Value Reference Range Interpretation Comments Eosinophils # (test code 0.0 See_Comment [A utomated message] The = Eosinophils #) system whic h generated this result tra nsmitted reference range : <=0.5. The reference r nikki was not used to int erpret this result as normal/abnormal . [facility] HospitalIaduepiJRUBETREJA5896-31-28 09:27:00 Test Item Value Reference Range Interpretation Comments Basophils # (test code 0.1 See_Comment [Aut omated message] The = Basophils #) system which generated this result tra nsmitted reference range : <=0.2. The reference r nikki was not used to int erpret this result as normal/abnormal . [facility]WvdlkllSDFVIFXOIHCF2034-99-09 09:27:00 Test Item Value Reference Range Interpretation Comments CO2 (test code = CO2) 25 24-32 [facility]OutnktuKROLMGTTTBXH6175-19-78 09:27:00 Test Item Value Reference Range Interpretation Comments Potassium Lvl (test code = Potassium 2.9 3.5-5.1 Lvl) [facility] HospitalWdccpoyIRDBLITBLLFY4319-80-97 09:27:00 Test Item Value Reference Range Interpretation Comments Sodium Lvl (test code = Sodium Lvl) 138 135-145 [facility] HospitalVchqzcrUOBVYJGBJHTQ4309-82-65 09:27:00 Test Item Value Reference Range Interpretation Comments Creatinine Lvl (test code = Creatinine 0.70 0.50-1.40 Lvl) [facility] HospitalXkmoyihSLKEBSFZDWUM6951-12-62 09:27:00 Test Item Value Reference Range Interpretation Comments Chloride Lvl (test code = Chloride Lvl) 103 95-109 [facility] HospitalYifiymlEODVWTYRGNQL3945-51-66 09:27:00 Test Item Value Reference Range Interpretation Comments AGAP (test code = AGAP) 12.9 10.0-20.0 [facility] HospitalKayywmgVDYDEQSLCXIQ4588-38-58 09:27:00 Test Item Value Reference Range Interpretation Comments eGFR (test code = eGFR) 124 [facility] HospitalGiwbhcoIEVHBVJVJKFT9514-70-06 09:27:00 Test Item Value Reference Range Interpretation Comments Calcium Lvl (test code = Calcium Lvl) 8.3 8.5-10.5 [facility] HospitalOduqhmhRQXZBBQEJZMJ9264-74-35 09:27:00 Test Item Value Reference Range Interpretation Comments Bili Total (test code = Bili Total) 0.5 0.2-1.3 [facility] HospitalGsdpbgaYJISDLGTXZBA4053-25-87 09:27:00 Test Item Value Reference Range Interpretation Comments B/C Ratio (test code = B/C Ratio) 10 6-25 [facility] HospitalGgffjmnKSVVGYZXUCRB4511-32-55 09:27:00 Test Item Value Reference Range Interpretation Comments AST (test code = AST) 10 See_Comment [Auto mated message] The system which ge nerated this result transmit rohit reference range : <=37. The reference range was not used to interpr et this result as flor l/abnormal. [facility] HospitalTuosredBPMPRDKWTSRD1670-31-15 09:27:00 Test Item Value Reference Range Interpretation Comments ALT (test code = ALT) 28 See_Comment [Auto mated message] The system which ge nerated this result transmit rohit reference range : <=65. The reference range was not used to interpr et this result as flor l/abnormal. [facility] HospitalPbsqgsxIGCVDJUGEHQW1060-67-23 09:27:00 Test Item Value Reference Range Interpretation Comments A/G Ratio (test code = A/G Ratio) 0.8 0.7-1.6 [facility] HospitalQokxapyCWZTKVFESYCS4892-01-11 09:27:00 Test Item Value Reference Range Interpretation Comments BUN (test code = BUN) 7 7-22 [facility] HospitalEafdfzzALTFKMAWQPHD1831-21-57 09:27:00 Test Item Value Reference Range Interpretation Comments Glucose Lvl (test code = Glucose Lvl) 99 70-99 [facility] HospitalXqhkdkwBUNLQVIFOBZM4111-47-78 09:27:00 Test Item Value Reference Range Interpretation Comments Alk Phos (test code = Alk Phos) 58 39-136 [facility] HospitalSavbhbrRAFDHKJWBGEU5483-38-83 09:27:00 Test Item Value Reference Range Interpretation Comments Globulin (test code = Globulin) 4.0 2.7-4.2 [facility] HospitalDxgzkpxJKCXJCYUADCW3068-54-09 09:27:00 Test Item Value Reference Range Interpretation Comments Albumin Lvl (test code = Albumin Lvl) 3.4 3.5-5.0 [facility] HospitalPaeoovpOIQXKLZRCSZT6787-59-23 09:27:00 Test Item Value Reference Range Interpretation Comments Globulin (test code = Globulin) 4.0 2.7-4.2 [facility] HospitalIrfaubpMPFCQTSRXJWW5820-48-99 09:27:00 Test Item Value Reference Range Interpretation Comments Albumin Lvl (test code = Albumin Lvl) 3.4 3.5-5.0 [facility] HospitalHzwdjsvLREMTEVNXLMK6611-95-14 09:27:00 Test Item Value Reference Range Interpretation Comments Total Protein (test code = Total 7.4 6.4-8.4 Protein) [facility]TtpjnmcCLAOUVXZKX1294-11-43 09:27:00 Test Item Value Reference Range Interpretation Comments RBC (test code = RBC) 4.76 4.20-5.40 [facility] HospitalCgprtdaKKBBTMBVSZ2125-68-80 09:27:00 Test Item Value Reference Range Interpretation Comments Hgb (test code = Hgb) 13.4 12.0-16.0 [facility] HospitalMlzhawsNADPBDLQUR5465-28-12 09:27:00 Test Item Value Reference Range Interpretation Comments WBC (test code = WBC) 14.5 3.7-10.4 [facility] HospitalEgwdefuYCWJACVIDM5148-47-86 09:27:00 Test Item Value Reference Range Interpretation Comments Hct (test code = Hct) 41.0 36.0-48.0 [facility] HospitalYsytqjlNCQSKJJVKR2873-50-52 09:27:00 Test Item Value Reference Range Interpretation Comments MCV (test code = MCV) 86.1 80.0-98.0 [facility] HospitalGlicdqhADZPQHKRXJ7718-86-44 09:27:00 Test Item Value Reference Range Interpretation Comments MPV (test code = MPV) 8.6 7.4-10.4 [facility] HospitalMagvamxXKHNXGRXEZ9606-36-87 09:27:00 Test Item Value Reference Range Interpretation Comments MCHC (test code = MCHC) 32.6 32.0-36.0 [facility] HospitalUvesbguUAKKRUPPYR2732-08-06 09:27:00 Test Item Value Reference Range Interpretation Comments MCH (test code = MCH) 28.1 pg 27.0-31.0 [facility] HospitalYhkpenbBBNSYIEUPJ1015-13-43 09:27:00 Test Item Value Reference Range Interpretation Comments RDW (test code = RDW) 13.6 11.5-14.5 [facility] HospitalYnvbhabPPXVEALFZT6515-58-20 09:27:00 Test Item Value Reference Range Interpretation Comments Platelet (test code = Platelet) 423 133-450 [facility] HospitalQmqtioyUPFKBDTNEG7541-44-17 09:27:00 Test Item Value Reference Range Interpretation Comments Lymphocytes (test code = Lymphocytes) 15.1 20.0-40.0 [facility] HospitalNzewzeeGHDZCADWXP4596-01-05 09:27:00 Test Item Value Reference Range Interpretation Comments Monocytes (test code = Monocytes) 6.2 2.0-12.0 [facility] HospitalUvmxkebGVLBVHSFTZ8871-75-71 09:27:00 Test Item Value Reference Range Interpretation Comments Segs (test code = Segs) 77.7 45.0-75.0 [facility] HospitalQbmwtwgGNOZKQVPMO1228-21-21 09:27:00 Test Item Value Reference Range Interpretation Comments Segs-Bands # (test code = Segs-Bands #) 11.3 1.5-8.1 [facility] HospitalQchkaocPDQSIALAEX1327-46-66 09:27:00 Test Item Value Reference Range Interpretation Comments Eosinophils (test code = 0.0 See_Comment [A utomated message] The Eosinophils) system which ge nerated this result tra nsmitted reference range : <=4.0. The reference r nikki was not used to int erpret this result as normal/abnormal . [facility] HospitalTxtncseMKUUXWYTHP0837-20-48 09:27:00 Test Item Value Reference Range Interpretation Comments Basophils (test code = 1.0 See_Comment [Aut omated message] The Basophils) system which ge nerated this result tra nsmitted reference range : <=1.0. The reference r nikki was not used to int erpret this result as normal/abnormal . [facility] HospitalKgrplxmBXTUFACWDJ1113-48-67 09:27:00 Test Item Value Reference Range Interpretation Comments Lymphocytes # (test code = Lymphocytes 2.2 1.0-5.5 #) [facility] HospitalThffxsfHGDJYUCRUT6829-40-96 09:27:00 Test Item Value Reference Range Interpretation Comments Monocytes # (test code 0.9 See_Comment [Aut omated message] The = Monocytes #) system which generated this result tra nsmitted reference range : <=0.8. The reference r nikki was not used to int erpret this result as normal/abnormal . [facility] HospitalZrjuatuTLCZPBNAUM9406-53-79 09:27:00 Test Item Value Reference Range Interpretation Comments Eosinophils # (test code 0.0 See_Comment [A utomated message] The = Eosinophils #) system whic h generated this result tra nsmitted reference range : <=0.5. The reference r nikki was not used to int erpret this result as normal/abnormal . [facility] HospitalAzsqfkkCQQQFQDFGG7083-70-80 09:27:00 Test Item Value Reference Range Interpretation Comments Basophils # (test code 0.1 See_Comment [Aut omated message] The = Basophils #) system which generated this result tra nsmitted reference range : <=0.2. The reference r nikki was not used to int erpret this result as normal/abnormal . [facility] HospitalRidrwcrWSCTWURLKFVM6314-69-92 09:27:00 Test Item Value Reference Range Interpretation Comments CO2 (test code = CO2) 25 24-32 [facility] HospitalFnheimxHGNLGFEZDPLC3152-60-62 09:27:00 Test Item Value Reference Range Interpretation Comments Potassium Lvl (test code = Potassium 2.9 3.5-5.1 Lvl) [facility] HospitalRqtrlgnWWFNZEJFYQZG8815-25-97 09:27:00 Test Item Value Reference Range Interpretation Comments Sodium Lvl (test code = Sodium Lvl) 138 135-145 [facility] HospitalTqmffmzELGIUDVKLICG6649-73-99 09:27:00 Test Item Value Reference Range Interpretation Comments Creatinine Lvl (test code = Creatinine 0.70 0.50-1.40 Lvl) [facility] HospitalKfqkgjdDNBGHXLMYGGZ1829-26-96 09:27:00 Test Item Value Reference Range Interpretation Comments Chloride Lvl (test code = Chloride Lvl) 103 95-109 [facility] HospitalEbvmqopNLHMFLZLCDXW9488-43-57 09:27:00 Test Item Value Reference Range Interpretation Comments AGAP (test code = AGAP) 12.9 10.0-20.0 [facility] HospitalCnsmotuTYBMBMHQRJRO7574-39-70 09:27:00 Test Item Value Reference Range Interpretation Comments eGFR (test code = eGFR) 124 [facility] HospitalRyasfkyEMFJTEDTVGKK4654-59-61 09:27:00 Test Item Value Reference Range Interpretation Comments Calcium Lvl (test code = Calcium Lvl) 8.3 8.5-10.5 [facility] HospitalPrjmfkfXYZJLCVDNGVG8044-41-93 09:27:00 Test Item Value Reference Range Interpretation Comments Bili Total (test code = Bili Total) 0.5 0.2-1.3 [facility] HospitalOtesschOXOGASHMSSNN4085-38-76 09:27:00 Test Item Value Reference Range Interpretation Comments B/C Ratio (test code = B/C Ratio) 10 6-25 [facility] HospitalQytlrjvDCNITPHXTQZW2912-71-99 09:27:00 Test Item Value Reference Range Interpretation Comments AST (test code = AST) 10 See_Comment [Auto mated message] The system which ge nerated this result transmit rohit reference range : <=37. The reference range was not used to interpr et this result as flor l/abnormal. [facility] HospitalWkqlmawLBUBJCCKFOEG3707-85-72 09:27:00 Test Item Value Reference Range Interpretation Comments ALT (test code = ALT) 28 See_Comment [Auto mated message] The system which ge nerated this result transmit rohit reference range : <=65. The reference range was not used to interpr et this result as flor l/abnormal. [facility] HospitalZrvlhxpJUTVXPCKSYWI2764-98-43 09:27:00 Test Item Value Reference Range Interpretation Comments A/G Ratio (test code = A/G Ratio) 0.8 0.7-1.6 [facility] HospitalHshhbbqUVTAATJFKVSK5528-94-90 09:27:00 Test Item Value Reference Range Interpretation Comments BUN (test code = BUN) 7 7-22 [facility] HospitalPwliifkRPPSJCXNVBSI5805-88-10 09:27:00 Test Item Value Reference Range Interpretation Comments Glucose Lvl (test code = Glucose Lvl) 99 70-99 [facility] HospitalAkqsrkoIKMAVGUAIPCP6616-25-22 09:27:00 Test Item Value Reference Range Interpretation Comments Alk Phos (test code = Alk Phos) 58 39-136 [facility]TS[facility] PFECU9341-43-65 05:20:00 Test Item Value Reference Range Interpretation Comments eGFR (test code = eGFR) 82 [facility]2017-07-16 05:20:00 Test Item Value Reference Range Interpretation Comments Albumin Lvl (test code = Albumin Lvl) 3.8 3.5-5.0 [facility] HospitalOdinOtvetUNC HEALTH SOUTHEASTERNCOVEH3899-16-83 05:20:00 Test Item Value Reference Range Interpretation Comments Globulin (test code = Globulin) 4.6 2.7-4.2 [facility]2017-07-16 05:20:00 Test Item Value Reference Range Interpretation Comments AST (test code = AST) 11 See_Comment [Auto mated message] The system which ge nerated this result transmit rohit reference range : <=37. The reference range was not used to interpr et this result as flor l/abnormal. [facility]TS[facility] RCCRD7722-93-05 05:20:00 Test Item Value Reference Range Interpretation Comments ALT (test code = ALT) 34 See_Comment [Auto mated message] The system which ge nerated this result transmit rohit reference range : <=65. The reference range was not used to interpr et this result as flor l/abnormal. [facility]TS[facility] ACCFS7649-77-32 05:20:00 Test Item Value Reference Range Interpretation Comments Alk Phos (test code = Alk Phos) 65 39-136 [facility]2017-07-16 05:20:00 Test Item Value Reference Range Interpretation Comments Bili Total (test code = Bili Total) 0.6 0.2-1.3 [facility]2017-07-16 05:20:00 Test Item Value Reference Range Interpretation Comments Sodium Lvl (test code = Sodium Lvl) 138 135-145 [facility]2017-07-16 05:20:00 Test Item Value Reference Range Interpretation Comments Potassium Lvl (test code = Potassium 2.6 3.5-5.1 Lvl) [facility]2017-07-16 05:20:00 Test Item Value Reference Range Interpretation Comments Creatinine Lvl (test code = Creatinine 0.99 0.50-1.40 Lvl) [facility]2017-07-16 05:20:00 Test Item Value Reference Range Interpretation Comments Glucose Lvl (test code = Glucose Lvl) 107 70-99 [facility]2017-07-16 05:20:00 Test Item Value Reference Range Interpretation Comments BUN (test code = BUN) 8 7-22 [facility]2017-07-16 05:20:00 Test Item Value Reference Range Interpretation Comments B/C Ratio (test code = B/C Ratio) 8 6-25 [facility]2017-07-16 05:20:00 Test Item Value Reference Range Interpretation Comments AGAP (test code = AGAP) 15.6 10.0-20.0 [facility]2017-07-16 05:20:00 Test Item Value Reference Range Interpretation Comments Calcium Lvl (test code = Calcium Lvl) 8.9 8.5-10.5 [facility]2017-07-16 05:20:00 Test Item Value Reference Range Interpretation Comments Chloride Lvl (test code = Chloride Lvl) 102 95-109 [facility]2017-07-16 05:20:00 Test Item Value Reference Range Interpretation Comments CO2 (test code = CO2) 23 24-32 [facility]2017-07-16 05:20:00 Test Item Value Reference Range Interpretation Comments Total Protein (test code = Total 8.4 6.4-8.4 Protein) [facility]2017-07-16 05:20:00 Test Item Value Reference Range Interpretation Comments A/G Ratio (test code = A/G Ratio) 0.8 0.7-1.6 [facility]2017-07-16 05:20:00 Test Item Value Reference Range Interpretation Comments Lipase Lvl (test code = Lipase Lvl) 79 73-393 [facility]2017-07-16 05:20:00 Test Item Value Reference Range Interpretation Comments Amylase Lvl (test code = Amylase Lvl) 28 25-115 [facility] HospitalEtmxmdgGWUFIEBVUF1985-56-12 05:20:00 Test Item Value Reference Range Interpretation Comments WBC (test code = WBC) 15.2 3.7-10.4 [facility] HospitalHxqgwkpMDEABFNZEC5877-98-51 05:20:00 Test Item Value Reference Range Interpretation Comments RBC (test code = RBC) 5.38 4.20-5.40 [facility] HospitalPjwlzkhGEQPXGBKJV1217-98-08 05:20:00 Test Item Value Reference Range Interpretation Comments MCV (test code = MCV) 85.3 80.0-98.0 [facility] HospitalTaqukydYQGIYKOPJF4604-16-47 05:20:00 Test Item Value Reference Range Interpretation Comments Hct (test code = Hct) 45.9 36.0-48.0 [facility] HospitalHocrvdnWULGYLPGTY3867-66-72 05:20:00 Test Item Value Reference Range Interpretation Comments Hgb (test code = Hgb) 15.0 12.0-16.0 [facility] HospitalNkhjoovCLSDAYPQCW8833-20-62 05:20:00 Test Item Value Reference Range Interpretation Comments MCHC (test code = MCHC) 32.8 32.0-36.0 [facility] HospitalYscprppFCSGQLWXJP5932-59-54 05:20:00 Test Item Value Reference Range Interpretation Comments MCH (test code = MCH) 27.9 pg 27.0-31.0 [facility] HospitalDchkqzdIIDTFVWTZL4738-36-34 05:20:00 Test Item Value Reference Range Interpretation Comments MPV (test code = MPV) 9.1 7.4-10.4 [facility] HospitalOjvxyplTIMGRVEHPZ3564-96-97 05:20:00 Test Item Value Reference Range Interpretation Comments Platelet (test code = Platelet) 455 133-450 [facility] HospitalFwiddhsHGTPNJJHZQ2806-23-45 05:20:00 Test Item Value Reference Range Interpretation Comments RDW (test code = RDW) 13.0 11.5-14.5 [facility] HospitalBigweswWBUNEMCGTN2737-57-57 05:20:00 Test Item Value Reference Range Interpretation Comments Basophils (test code = 0.0 See_Comment [Aut omated message] The Basophils) system which ge nerated this result tra nsmitted reference range : <=1.0. The reference r nikki was not used to int erpret this result as normal/abnormal . [facility] HospitalVswxbvoHQQJLKNHSH4482-27-96 05:20:00 Test Item Value Reference Range Interpretation Comments Eosinophils (test code = 0.0 See_Comment [A utomated message] The Eosinophils) system which ge nerated this result tra nsmitted reference range : <=4.0. The reference r nikki was not used to int erpret this result as normal/abnormal . [facility] HospitalKyahviwULCWXCWCAB3019-26-00 05:20:00 Test Item Value Reference Range Interpretation Comments Lymphocytes # (test code = Lymphocytes 1.3 1.0-5.5 #) [facility] HospitalWpixmkhTVNGGQYPPD6332-68-35 05:20:00 Test Item Value Reference Range Interpretation Comments Segs-Bands # (test code = Segs-Bands #) 13.5 1.5-8.1 [facility] HospitalAxacuzoIBVQRQUEVW1214-91-56 05:20:00 Test Item Value Reference Range Interpretation Comments Monocytes (test code = Monocytes) 2.8 2.0-12.0 [facility] HospitalOdskfysIIFAGUDKAW6039-75-51 05:20:00 Test Item Value Reference Range Interpretation Comments Basophils # (test code 0.0 See_Comment [Aut omated message] The = Basophils #) system which generated this result tra nsmitted reference range : <=0.2. The reference r nikki was not used to int erpret this result as normal/abnormal . [facility] HospitalUpqiemzLQPIYODAAO0721-83-40 05:20:00 Test Item Value Reference Range Interpretation Comments Eosinophils # (test code 0.0 See_Comment [A utomated message] The = Eosinophils #) system whic h generated this result tra nsmitted reference range : <=0.5. The reference r nikki was not used to int erpret this result as normal/abnormal . [facility] HospitalYsfdllqZQXMQNZXDU9171-68-52 05:20:00 Test Item Value Reference Range Interpretation Comments Monocytes # (test code 0.4 See_Comment [Aut omated message] The = Monocytes #) system which generated this result tra nsmitted reference range : <=0.8. The reference r nikki was not used to int erpret this result as normal/abnormal . [facility] HospitalDpjdyvmOPLMTOURHO0030-10-50 05:20:00 Test Item Value Reference Range Interpretation Comments Lymphocytes (test code = Lymphocytes) 8.6 20.0-40.0 [facility] HospitalGmkjwrbXMZIBVYVZF3315-01-66 05:20:00 Test Item Value Reference Range Interpretation Comments RBC Morph (test code = Normal (02/11/17 12:20 RBC Morph) AM) [facility] HospitalNpusbnoWOGWHEMSKR8768-48-56 05:20:00 Test Item Value Reference Range Interpretation Comments Segs (test code = Segs) 88.6 45.0-75.0 [facility] HospitalTryzzzpUQJTBIAPMT6163-16-20 05:20:00 Test Item Value Reference Range Interpretation Comments Plt Morph (test code = Normal (02/11/17 12:20 Plt Morph) AM) [facility] AND [id number] 05:20:00 Test Item Value Reference Range Interpretation Comments UA Urobilinogen (test code = UA 2.0 0.1-1.0 Urobilinogen) [facility] AND [id number] 05:20:00 Test Item Value Reference Range Interpretation Comments UA Nitrite (test code Negative (02/11/17 12:20 = UA Nitrite) AM) [facility] AND [id number] 05:20:00 Test Item Value Reference Range Interpretation Comments UA Blood (test code = Moderate *ABN*(02/11/17 UA Blood) 12:20 AM) [facility] AND [id number] 05:20:00 Test Item Value Reference Range Interpretation Comments UA Leuk Est (test Negative (02/11/17 12:20 code = UA Leuk Est) AM) [facility] AND [id number] 05:20:00 Test Item Value Reference Range Interpretation Comments UA Color (test code = Yellow *NA*(02/11/17 UA Color) 12:20 AM) [facility] AND [id number] 05:20:00 Test Item Value Reference Range Interpretation Comments UA Turbidity (test code Slight *ABN*(02/11/17 = UA Turbidity) 12:20 AM) [facility] AND [id number] 05:20:00 Test Item Value Reference Range Interpretation Comments UA RBC (test code = 26 See_Comment [Automa rohit message] The UA RBC) system which ge nerated this result transmit rohit reference range : <=2. The reference range was not used to interpr et this result as flor l/abnormal. [facility] AND OUOOU2074-37-11 05:20:00 Test Item Value Reference Range Interpretation Comments UA WBC (test code = 2 See_Comment [Automa rohit message] The UA WBC) system which ge nerated this result transmit rohit reference range : <=5. The reference range was not used to interpr et this result as flor l/abnormal. [facility] AND [id number] 05:20:00 Test Item Value Reference Range Interpretation Comments UA Mucus (test code = UA Mucus) Few /LPF [facility] AND [id number] 05:20:00 Test Item Value Reference Range Interpretation Comments UA Bacteria (test code = UA Occasional /HPF Bacteria) [facility] AND [id number] 05:20:00 Test Item Value Reference Range Interpretation Comments UA Sq Epi (test code = UA Sq Occasional /LPF Epi) [facility] AND [id number] 05:20:00 Test Item Value Reference Range Interpretation Comments UA Ketones (test code = UA Ketones) 80 mg/dL [facility] AND [id number] 05:20:00 Test Item Value Reference Range Interpretation Comments UA Bili (test code = Negative *NA*(02/11/17 UA Bili) 12:20 AM) [facility] AND [id number] 05:20:00 Test Item Value Reference Range Interpretation Comments UA Spec Grav (test code = UA Spec Grav) 1.017 [facility] AND [id number] 05:20:00 Test Item Value Reference Range Interpretation Comments UA Glucose (test code = UA Negative mg/dL Glucose) [facility] AND [id number] 05:20:00 Test Item Value Reference Range Interpretation Comments UA Protein (test code = UA Negative mg/dL Protein) [facility] AND [id number] 05:20:00 Test Item Value Reference Range Interpretation Comments UA pH (test code = UA pH) 8.0 5.0-8.0 [facility] [id number] 05:20:00 Test Item Value Reference Range Interpretation Comments U Preg (test code = U Negative (02/11/17 12:20 Preg) AM) [facility] [id number] 05:20:00 Test Item Value Reference Range Interpretation Comments eGFR (test code = eGFR) 82 [facility]2017-07-16 05:20:00 Test Item Value Reference Range Interpretation Comments Albumin Lvl (test code = Albumin Lvl) 3.8 3.5-5.0 [facility]2017-07-16 05:20:00 Test Item Value Reference Range Interpretation Comments Globulin (test code = Globulin) 4.6 2.7-4.2 [facility]2017-07-16 05:20:00 Test Item Value Reference Range Interpretation Comments AST (test code = AST) 11 See_Comment [Auto mated message] The system which ge nerated this result transmit rohit reference range : <=37. The reference range was not used to interpr et this result as flor l/abnormal. [facility]2017-07-16 05:20:00 Test Item Value Reference Range Interpretation Comments ALT (test code = ALT) 34 See_Comment [Auto mated message] The system which ge nerated this result transmit rohit reference range : <=65. The reference range was not used to interpr et this result as flor l/abnormal. [facility]2017-07-16 05:20:00 Test Item Value Reference Range Interpretation Comments Alk Phos (test code = Alk Phos) 65 39-136 [facility]2017-07-16 05:20:00 Test Item Value Reference Range Interpretation Comments Bili Total (test code = Bili Total) 0.6 0.2-1.3 [facility]2017-07-16 05:20:00 Test Item Value Reference Range Interpretation Comments Sodium Lvl (test code = Sodium Lvl) 138 135-145 [facility]2017-07-16 05:20:00 Test Item Value Reference Range Interpretation Comments Potassium Lvl (test code = Potassium 2.6 3.5-5.1 Lvl) [facility]2017-07-16 05:20:00 Test Item Value Reference Range Interpretation Comments Creatinine Lvl (test code = Creatinine 0.99 0.50-1.40 Lvl) [facility]2017-07-16 05:20:00 Test Item Value Reference Range Interpretation Comments Glucose Lvl (test code = Glucose Lvl) 107 70-99 [facility]2017-07-16 05:20:00 Test Item Value Reference Range Interpretation Comments BUN (test code = BUN) 8 7-22 [facility]2017-07-16 05:20:00 Test Item Value Reference Range Interpretation Comments B/C Ratio (test code = B/C Ratio) 8 6-25 [facility]2017-07-16 05:20:00 Test Item Value Reference Range Interpretation Comments AGAP (test code = AGAP) 15.6 10.0-20.0 [facility]2017-07-16 05:20:00 Test Item Value Reference Range Interpretation Comments Calcium Lvl (test code = Calcium Lvl) 8.9 8.5-10.5 [facility]2017-07-16 05:20:00 Test Item Value Reference Range Interpretation Comments Chloride Lvl (test code = Chloride Lvl) 102 95-109 [facility]2017-07-16 05:20:00 Test Item Value Reference Range Interpretation Comments CO2 (test code = CO2) 23 24-32 [facility]2017-07-16 05:20:00 Test Item Value Reference Range Interpretation Comments Total Protein (test code = Total 8.4 6.4-8.4 Protein) [facility]2017-07-16 05:20:00 Test Item Value Reference Range Interpretation Comments A/G Ratio (test code = A/G Ratio) 0.8 0.7-1.6 [facility]2017-07-16 05:20:00 Test Item Value Reference Range Interpretation Comments Lipase Lvl (test code = Lipase Lvl) 79 73-393 [facility]2017-07-16 05:20:00 Test Item Value Reference Range Interpretation Comments Amylase Lvl (test code = Amylase Lvl) 28 25-115 [facility] H[id number] 05:20:00 Test Item Value Reference Range Interpretation Comments WBC (test code = WBC) 15.2 3.7-10.4 [facility] HospitalTdooinoKROARGAVNE0205-49-90 05:20:00 Test Item Value Reference Range Interpretation Comments RBC (test code = RBC) 5.38 4.20-5.40 [facility] HospitalJmwhdwgUMUSBQKFTL3811-85-07 05:20:00 Test Item Value Reference Range Interpretation Comments MCV (test code = MCV) 85.3 80.0-98.0 [facility] HospitalEadjxfjIZNKFEEJLX1338-28-71 05:20:00 Test Item Value Reference Range Interpretation Comments Hct (test code = Hct) 45.9 36.0-48.0 [facility] Hospit[id number] 05:20:00 Test Item Value Reference Range Interpretation Comments Hgb (test code = Hgb) 15.0 12.0-16.0 [facility] HospitalXhbwwzzKCRWRDEDNN0714-87-47 05:20:00 Test Item Value Reference Range Interpretation Comments MCHC (test code = MCHC) 32.8 32.0-36.0 [facility] HospitalLvqqsdwYTJSTCLLQY4509-93-57 05:20:00 Test Item Value Reference Range Interpretation Comments MCH (test code = MCH) 27.9 pg 27.0-31.0 [facility] HospitalGgoejqiCIOFFFVRXY9380-13-58 05:20:00 Test Item Value Reference Range Interpretation Comments MPV (test code = MPV) 9.1 7.4-10.4 [facility] Ho[id number] 05:20:00 Test Item Value Reference Range Interpretation Comments Platelet (test code = Platelet) 455 133-450 [facility] HospitalKwpgwhzYFNLLPHBYC1659-71-67 05:20:00 Test Item Value Reference Range Interpretation Comments RDW (test code = RDW) 13.0 11.5-14.5 [facility] HospitalWsfloiiDIJCLSZRWQ1287-00-48 05:20:00 Test Item Value Reference Range Interpretation Comments Basophils (test code = 0.0 See_Comment [Aut omated message] The Basophils) system which ge nerated this result tra nsmitted reference range : <=1.0. The reference r nikki was not used to int erpret this result as normal/abnormal . [facility] Hos[id number] 05:20:00 Test Item Value Reference Range Interpretation Comments Eosinophils (test code = 0.0 See_Comment [A utomated message] The Eosinophils) system which ge nerated this result tra nsmitted reference range : <=4.0. The reference r nikki was not used to int erpret this result as normal/abnormal . [facility] HospitalCeryikhXPEXEPOCKB9922-87-10 05:20:00 Test Item Value Reference Range Interpretation Comments Lymphocytes # (test code = Lymphocytes 1.3 1.0-5.5 #) [facility] HospitalHxrewvwGWVMQWKLFZ2527-93-54 05:20:00 Test Item Value Reference Range Interpretation Comments Segs-Bands # (test code = Segs-Bands #) 13.5 1.5-8.1 [facility] H[id number] 05:20:00 Test Item Value Reference Range Interpretation Comments Monocytes (test code = Monocytes) 2.8 2.0-12.0 [facility] HospitalSpojjvjJGCFJJAEYZ2342-55-22 05:20:00 Test Item Value Reference Range Interpretation Comments Basophils # (test code 0.0 See_Comment [Aut omated message] The = Basophils #) system which generated this result tra nsmitted reference range : <=0.2. The reference r nikki was not used to int erpret this result as normal/abnormal . [facility] HospitalFxkecvePWLUELQVLS4912-02-40 05:20:00 Test Item Value Reference Range Interpretation Comments Eosinophils # (test code 0.0 See_Comment [A utomated message] The = Eosinophils #) system whic h generated this result tra nsmitted reference range : <=0.5. The reference r nikki was not used to int erpret this result as normal/abnormal . [facility] HospitalTsfwvdqANOVFZHJDE7135-40-51 05:20:00 Test Item Value Reference Range Interpretation Comments Monocytes # (test code 0.4 See_Comment [Aut omated message] The = Monocytes #) system which generated this result tra nsmitted reference range : <=0.8. The reference r nikki was not used to int erpret this result as normal/abnormal . [facility] HospitalOztnzftGJARYLALKP7940-11-10 05:20:00 Test Item Value Reference Range Interpretation Comments Lymphocytes (test code = Lymphocytes) 8.6 20.0-40.0 [facility] HospitalXooqtncBNUMYOELHE3936-65-59 05:20:00 Test Item Value Reference Range Interpretation Comments RBC Morph (test code = Normal (02/11/17 12:20 RBC Morph) AM) [facility] HospitalEpdmaivGAMVWNNEJO8469-74-09 05:20:00 Test Item Value Reference Range Interpretation Comments Segs (test code = Segs) 88.6 45.0-75.0 [facility] HospitalEzcfdhpQYHUDJJERZ8118-52-48 05:20:00 Test Item Value Reference Range Interpretation Comments Plt Morph (test code = Normal (02/11/17 12:20 Plt Morph) AM) [facility] AND [id number] 05:20:00 Test Item Value Reference Range Interpretation Comments UA Urobilinogen (test code = UA 2.0 0.1-1.0 Urobilinogen) [facility] AND [id number] 05:20:00 Test Item Value Reference Range Interpretation Comments UA Nitrite (test code Negative (02/11/17 12:20 = UA Nitrite) AM) [facility] AND [id number] 05:20:00 Test Item Value Reference Range Interpretation Comments UA Blood (test code = Moderate *ABN*(02/11/17 UA Blood) 12:20 AM) [facility] AND [id number] 05:20:00 Test Item Value Reference Range Interpretation Comments UA Leuk Est (test Negative (02/11/17 12:20 code = UA Leuk Est) AM) [facility] AND [id number] 05:20:00 Test Item Value Reference Range Interpretation Comments UA Color (test code = Yellow *NA*(02/11/17 UA Color) 12:20 AM) [facility] AND [id number] 05:20:00 Test Item Value Reference Range Interpretation Comments UA Turbidity (test code Slight *ABN*(02/11/17 = UA Turbidity) 12:20 AM) [facility] AND [id number] 05:20:00 Test Item Value Reference Range Interpretation Comments UA RBC (test code = 26 See_Comment [Automa rohit message] The UA RBC) system which ge nerated this result transmit rohit reference range : <=2. The reference range was not used to interpr et this result as flor l/abnormal. [facility] AND [id number] 05:20:00 Test Item Value Reference Range Interpretation Comments UA WBC (test code = 2 See_Comment [Automa rohit message] The UA WBC) system which ge nerated this result transmit rohit reference range : <=5. The reference range was not used to interpr et this result as flor l/abnormal. [facility] AND [id number] 05:20:00 Test Item Value Reference Range Interpretation Comments UA Mucus (test code = UA Mucus) Few /LPF [facility] AND [id number] 05:20:00 Test Item Value Reference Range Interpretation Comments UA Bacteria (test code = UA Occasional /HPF Bacteria) [facility] AND [id number] 05:20:00 Test Item Value Reference Range Interpretation Comments UA Sq Epi (test code = UA Sq Occasional /LPF Epi) [facility] AND [id number] 05:20:00 Test Item Value Reference Range Interpretation Comments UA Ketones (test code = UA Ketones) 80 mg/dL [facility] AND [id number] 05:20:00 Test Item Value Reference Range Interpretation Comments UA Bili (test code = Negative *NA*(02/11/17 UA Bili) 12:20 AM) [facility] AND [id number] 05:20:00 Test Item Value Reference Range Interpretation Comments UA Spec Grav (test code = UA Spec Grav) 1.017 [facility] AND [id number] 05:20:00 Test Item Value Reference Range Interpretation Comments UA Glucose (test code = UA Negative mg/dL Glucose) [facility] AND [id number] 05:20:00 Test Item Value Reference Range Interpretation Comments UA Protein (test code = UA Negative mg/dL Protein) [facility] AND [id number] 05:20:00 Test Item Value Reference Range Interpretation Comments UA pH (test code = UA pH) 8.0 5.0-8.0 [facility] [id number] 05:20:00 Test Item Value Reference Range Interpretation Comments U Preg (test code = U Negative (02/11/17 12:20 Preg) AM) [facility] [id number] 05:20:00 Test Item Value Reference Range Interpretation Comments eGFR (test code = eGFR) 82 [facility] [id number] 05:20:00 Test Item Value Reference Range Interpretation Comments Albumin Lvl (test code = Albumin Lvl) 3.8 3.5-5.0 [facility]2017-07-16 05:20:00 Test Item Value Reference Range Interpretation Comments Globulin (test code = Globulin) 4.6 2.7-4.2 [facility]2017-07-16 05:20:00 Test Item Value Reference Range Interpretation Comments AST (test code = AST) 11 See_Comment [Auto mated message] The system which ge nerated this result transmit rohit reference range : <=37. The reference range was not used to interpr et this result as flor l/abnormal. [facility]2017-07-16 05:20:00 Test Item Value Reference Range Interpretation Comments ALT (test code = ALT) 34 See_Comment [Auto mated message] The system which ge nerated this result transmit rohit reference range : <=65. The reference range was not used to interpr et this result as flor l/abnormal. [facility]2017-07-16 05:20:00 Test Item Value Reference Range Interpretation Comments Alk Phos (test code = Alk Phos) 65 39-136 [facility]2017-07-16 05:20:00 Test Item Value Reference Range Interpretation Comments Bili Total (test code = Bili Total) 0.6 0.2-1.3 [facility]2017-07-16 05:20:00 Test Item Value Reference Range Interpretation Comments Sodium Lvl (test code = Sodium Lvl) 138 135-145 [facility]2017-07-16 05:20:00 Test Item Value Reference Range Interpretation Comments Potassium Lvl (test code = Potassium 2.6 3.5-5.1 Lvl) [facility]2017-07-16 05:20:00 Test Item Value Reference Range Interpretation Comments Creatinine Lvl (test code = Creatinine 0.99 0.50-1.40 Lvl) [facility]2017-07-16 05:20:00 Test Item Value Reference Range Interpretation Comments Glucose Lvl (test code = Glucose Lvl) 107 70-99 [facility]2017-07-16 05:20:00 Test Item Value Reference Range Interpretation Comments BUN (test code = BUN) 8 7-22 [facility]2017-07-16 05:20:00 Test Item Value Reference Range Interpretation Comments B/C Ratio (test code = B/C Ratio) 8 6-25 [facility]2017-07-16 05:20:00 Test Item Value Reference Range Interpretation Comments AGAP (test code = AGAP) 15.6 10.0-20.0 [facility]2017-07-16 05:20:00 Test Item Value Reference Range Interpretation Comments Calcium Lvl (test code = Calcium Lvl) 8.9 8.5-10.5 [facility]2017-07-16 05:20:00 Test Item Value Reference Range Interpretation Comments Chloride Lvl (test code = Chloride Lvl) 102 95-109 [facility]2017-07-16 05:20:00 Test Item Value Reference Range Interpretation Comments CO2 (test code = CO2) 23 24-32 [facility]2017-07-16 05:20:00 Test Item Value Reference Range Interpretation Comments Total Protein (test code = Total 8.4 6.4-8.4 Protein) [facility]2017-07-16 05:20:00 Test Item Value Reference Range Interpretation Comments A/G Ratio (test code = A/G Ratio) 0.8 0.7-1.6 [facility]2017-07-16 05:20:00 Test Item Value Reference Range Interpretation Comments Lipase Lvl (test code = Lipase Lvl) 79 73-393 [facility]2017-07-16 05:20:00 Test Item Value Reference Range Interpretation Comments Amylase Lvl (test code = Amylase Lvl) 28 25-115 [facility] H[id number] 05:20:00 Test Item Value Reference Range Interpretation Comments WBC (test code = WBC) 15.2 3.7-10.4 [facility] HospitalL[id number] 05:20:00 Test Item Value Reference Range Interpretation Comments RBC (test code = RBC) 5.38 4.20-5.40 [facility] Hospit[id number] 05:20:00 Test Item Value Reference Range Interpretation Comments MCV (test code = MCV) 85.3 80.0-98.0 [facility] HospitalZdbjyeaZRXUZONTRG5438-47-52 05:20:00 Test Item Value Reference Range Interpretation Comments Hct (test code = Hct) 45.9 36.0-48.0 [facility] HospitalXbjipruRTFSJBYXGB8995-88-00 05:20:00 Test Item Value Reference Range Interpretation Comments Hgb (test code = Hgb) 15.0 12.0-16.0 [facility] HospitalRtjxxtiLIOGIGGMNB7639-28-98 05:20:00 Test Item Value Reference Range Interpretation Comments MCHC (test code = MCHC) 32.8 32.0-36.0 [facility] HospitalPiiapoaDVSVJRSYWB2197-36-20 05:20:00 Test Item Value Reference Range Interpretation Comments MCH (test code = MCH) 27.9 pg 27.0-31.0 [facility] HospitalKazoyzrPPFEOMSAUL3376-25-74 05:20:00 Test Item Value Reference Range Interpretation Comments MPV (test code = MPV) 9.1 7.4-10.4 [facility] HospitalAkqtsmbZKVYPAOFDL5361-73-63 05:20:00 Test Item Value Reference Range Interpretation Comments Platelet (test code = Platelet) 455 133-450 [facility] Ho[id number] 05:20:00 Test Item Value Reference Range Interpretation Comments RDW (test code = RDW) 13.0 11.5-14.5 [facility] HospitalRizmzbnHCDZMAFCOV9421-37-72 05:20:00 Test Item Value Reference Range Interpretation Comments Basophils (test code = 0.0 See_Comment [Aut omated message] The Basophils) system which ge nerated this result tra nsmitted reference range : <=1.0. The reference r nikki was not used to int erpret this result as normal/abnormal . [facility] HospitalRjrcjbfSBEKEOFGNU2104-00-79 05:20:00 Test Item Value Reference Range Interpretation Comments Eosinophils (test code = 0.0 See_Comment [A utomated message] The Eosinophils) system which ge nerated this result tra nsmitted reference range : <=4.0. The reference r nikki was not used to int erpret this result as normal/abnormal . [facility] HospitalKcuhhbsUPNHPKGCXA1763-51-16 05:20:00 Test Item Value Reference Range Interpretation Comments Lymphocytes # (test code = Lymphocytes 1.3 1.0-5.5 #) [facility] Ho[id number] 05:20:00 Test Item Value Reference Range Interpretation Comments Segs-Bands # (test code = Segs-Bands #) 13.5 1.5-8.1 [facility] H[id number] 05:20:00 Test Item Value Reference Range Interpretation Comments Monocytes (test code = Monocytes) 2.8 2.0-12.0 [facility] HospitalYikdsayRVIXNVTLWX1727-22-91 05:20:00 Test Item Value Reference Range Interpretation Comments Basophils # (test code 0.0 See_Comment [Aut omated message] The = Basophils #) system which generated this result tra nsmitted reference range : <=0.2. The reference r nikki was not used to int erpret this result as normal/abnormal . [facility] HospitalStsppugAHNXTGMHSU4127-46-76 05:20:00 Test Item Value Reference Range Interpretation Comments Eosinophils # (test code 0.0 See_Comment [A utomated message] The = Eosinophils #) system whic h generated this result tra nsmitted reference range : <=0.5. The reference r nikki was not used to int erpret this result as normal/abnormal . [facility] HospitalJvklwxkEYHAOXVLMK0566-84-73 05:20:00 Test Item Value Reference Range Interpretation Comments Monocytes # (test code 0.4 See_Comment [Aut omated message] The = Monocytes #) system which generated this result tra nsmitted reference range : <=0.8. The reference r nikki was not used to int erpret this result as normal/abnormal . [facility] HospitalAmzobdxFVUBLZTOGG8249-12-55 05:20:00 Test Item Value Reference Range Interpretation Comments Lymphocytes (test code = Lymphocytes) 8.6 20.0-40.0 [facility] HospitalAunfdoyROFJCPOAMY9684-76-09 05:20:00 Test Item Value Reference Range Interpretation Comments RBC Morph (test code = Normal (02/11/17 12:20 RBC Morph) AM) [facility] HospitalMhrkldyPCKVZVRRIJ3028-47-33 05:20:00 Test Item Value Reference Range Interpretation Comments Segs (test code = Segs) 88.6 45.0-75.0 [facility] HospitalUtkzfiuFVDSYRRQRO5186-03-09 05:20:00 Test Item Value Reference Range Interpretation Comments Plt Morph (test code = Normal (02/11/17 12:20 Plt Morph) AM) [facility]2017-07-16 05:20:00 Test Item Value Reference Range Interpretation Comments UA Urobilinogen (test code = UA 2.0 0.1-1.0 Urobilinogen) [facility] AND [id number] 05:20:00 Test Item Value Reference Range Interpretation Comments UA Nitrite (test code Negative (02/11/17 12:20 = UA Nitrite) AM) [facility] AND [id number] 05:20:00 Test Item Value Reference Range Interpretation Comments UA Blood (test code = Moderate *ABN*(02/11/17 UA Blood) 12:20 AM) [facility] AND [id number] 05:20:00 Test Item Value Reference Range Interpretation Comments UA Leuk Est (test Negative (02/11/17 12:20 code = UA Leuk Est) AM) [facility] AND [id number] 05:20:00 Test Item Value Reference Range Interpretation Comments UA Color (test code = Yellow *NA*(02/11/17 UA Color) 12:20 AM) [facility] AND [id number] 05:20:00 Test Item Value Reference Range Interpretation Comments UA Turbidity (test code Slight *ABN*(02/11/17 = UA Turbidity) 12:20 AM) [facility] AND [id number] 05:20:00 Test Item Value Reference Range Interpretation Comments UA RBC (test code = 26 See_Comment [Automa rohit message] The UA RBC) system which ge nerated this result transmit rohit reference range : <=2. The reference range was not used to interpr et this result as flor l/abnormal. [facility] AND [id number] 05:20:00 Test Item Value Reference Range Interpretation Comments UA WBC (test code = 2 See_Comment [Automa rohit message] The UA WBC) system which ge nerated this result transmit rohit reference range : <=5. The reference range was not used to interpr et this result as flor l/abnormal. [facility] AND [id number] 05:20:00 Test Item Value Reference Range Interpretation Comments UA Mucus (test code = UA Mucus) Few /LPF [facility] AND [id number] 05:20:00 Test Item Value Reference Range Interpretation Comments UA Bacteria (test code = UA Occasional /HPF Bacteria) [facility] AND [id number] 05:20:00 Test Item Value Reference Range Interpretation Comments UA Sq Epi (test code = UA Sq Occasional /LPF Epi) [facility] [facility] [id number] 05:20:00 Test Item Value Reference Range Interpretation Comments UA Ketones (test code = UA Ketones) 80 mg/dL [facility] AND [id number] 05:20:00 Test Item Value Reference Range Interpretation Comments UA Bili (test code = Negative *NA*(02/11/17 UA Bili) 12:20 AM) [facility] AND [id number] 05:20:00 Test Item Value Reference Range Interpretation Comments UA Spec Grav (test code = UA Spec Grav) 1.017 [facility] AND [id number] 05:20:00 Test Item Value Reference Range Interpretation Comments UA Glucose (test code = UA Negative mg/dL Glucose) [facility] AND [id number] 05:20:00 Test Item Value Reference Range Interpretation Comments UA Protein (test code = UA Negative mg/dL Protein) [facility] AND [id number] 05:20:00 Test Item Value Reference Range Interpretation Comments UA pH (test code = UA pH) 8.0 5.0-8.0 [facility] [id number] 05:20:00 Test Item Value Reference Range Interpretation Comments U Preg (test code = U Negative (02/11/17 12:20 Preg) AM) [facility] [id number] 05:20:00 Test Item Value Reference Range Interpretation Comments eGFR (test code = eGFR) 82 [facility] [id number] 05:20:00 Test Item Value Reference Range Interpretation Comments Albumin Lvl (test code = Albumin Lvl) 3.8 3.5-5.0 [facility] [id number] 05:20:00 Test Item Value Reference Range Interpretation Comments Globulin (test code = Globulin) 4.6 2.7-4.2 [facility] [id number] 05:20:00 Test Item Value Reference Range Interpretation Comments AST (test code = AST) 11 See_Comment [Auto mated message] The system which ge nerated this result transmit rohit reference range : <=37. The reference range was not used to interpr et this result as flor l/abnormal. [id number] 05:20:00 Test Item Value Reference Range Interpretation Comments ALT (test code = ALT) 34 See_Comment [Auto mated message] The system which ge nerated this result transmit rohit reference range : <=65. The reference range was not used to interpr et this result as flor l/abnormal. [facility]2017-07-16 05:20:00 Test Item Value Reference Range Interpretation Comments Alk Phos (test code = Alk Phos) 65 39-136 [facility]2017-07-16 05:20:00 Test Item Value Reference Range Interpretation Comments Bili Total (test code = Bili Total) 0.6 0.2-1.3 [facility]2017-07-16 05:20:00 Test Item Value Reference Range Interpretation Comments Sodium Lvl (test code = Sodium Lvl) 138 135-145 [facility]2017-07-16 05:20:00 Test Item Value Reference Range Interpretation Comments Potassium Lvl (test code = Potassium 2.6 3.5-5.1 Lvl) [facility]2017-07-16 05:20:00 Test Item Value Reference Range Interpretation Comments Creatinine Lvl (test code = Creatinine 0.99 0.50-1.40 Lvl) [facility]2017-07-16 05:20:00 Test Item Value Reference Range Interpretation Comments Glucose Lvl (test code = Glucose Lvl) 107 70-99 [facility]2017-07-16 05:20:00 Test Item Value Reference Range Interpretation Comments BUN (test code = BUN) 8 7-22 [facility]2017-07-16 05:20:00 Test Item Value Reference Range Interpretation Comments B/C Ratio (test code = B/C Ratio) 8 6-25 [facility]2017-07-16 05:20:00 Test Item Value Reference Range Interpretation Comments AGAP (test code = AGAP) 15.6 10.0-20.0 [facility]2017-07-16 05:20:00 Test Item Value Reference Range Interpretation Comments Calcium Lvl (test code = Calcium Lvl) 8.9 8.5-10.5 [facility]2017-07-16 05:20:00 Test Item Value Reference Range Interpretation Comments Chloride Lvl (test code = Chloride Lvl) 102 95-109 [facility]2017-07-16 05:20:00 Test Item Value Reference Range Interpretation Comments CO2 (test code = CO2) 23 24-32 [facility]2017-07-16 05:20:00 Test Item Value Reference Range Interpretation Comments Total Protein (test code = Total 8.4 6.4-8.4 Protein) [facility]2017-07-16 05:20:00 Test Item Value Reference Range Interpretation Comments A/G Ratio (test code = A/G Ratio) 0.8 0.7-1.6 [facility]2017-07-16 05:20:00 Test Item Value Reference Range Interpretation Comments Lipase Lvl (test code = Lipase Lvl) 79 73-393 [facility]2017-07-16 05:20:00 Test Item Value Reference Range Interpretation Comments Amylase Lvl (test code = Amylase Lvl) 28 25-115 [id number] 05:20:00 Test Item Value Reference Range Interpretation Comments WBC (test code = WBC) 15.2 3.7-10.4 [facility] [id number] 05:20:00 Test Item Value Reference Range Interpretation Comments RBC (test code = RBC) 5.38 4.20-5.40 [facility] Ho[id number] 05:20:00 Test Item Value Reference Range Interpretation Comments MCV (test code = MCV) 85.3 80.0-98.0 [facility] [id number] 05:20:00 Test Item Value Reference Range Interpretation Comments Hct (test code = Hct) 45.9 36.0-48.0 [facility] HospitalUwwvrauBHLAEZIXZM8069-04-35 05:20:00 Test Item Value Reference Range Interpretation Comments Hgb (test code = Hgb) 15.0 12.0-16.0 [facility] [id number] 05:20:00 Test Item Value Reference Range Interpretation Comments MCHC (test code = MCHC) 32.8 32.0-36.0 [facility] HospitalEdqcumjJCYAGZKISU9778-11-26 05:20:00 Test Item Value Reference Range Interpretation Comments MCH (test code = MCH) 27.9 pg 27.0-31.0 [facility] H[id number] 05:20:00 Test Item Value Reference Range Interpretation Comments MPV (test code = MPV) 9.1 7.4-10.4 [facility] HospitalEryrrnnDNCUNQUNOM2503-61-20 05:20:00 Test Item Value Reference Range Interpretation Comments Platelet (test code = Platelet) 455 133-450 [facility] HospitalXjvedmsSWMZTMGJVP1185-98-76 05:20:00 Test Item Value Reference Range Interpretation Comments RDW (test code = RDW) 13.0 11.5-14.5 [facility] Hospit[id number] 05:20:00 Test Item Value Reference Range Interpretation Comments Basophils (test code = 0.0 See_Comment [Aut omated message] The Basophils) system which ge nerated this result tra nsmitted reference range : <=1.0. The reference r nikki was not used to int erpret this result as normal/abnormal . [facility] H[id number] 05:20:00 Test Item Value Reference Range Interpretation Comments Eosinophils (test code = 0.0 See_Comment [A utomated message] The Eosinophils) system which ge nerated this result tra nsmitted reference range : <=4.0. The reference r nikki was not used to int erpret this result as normal/abnormal . [facility] Hospit[id number] 05:20:00 Test Item Value Reference Range Interpretation Comments Lymphocytes # (test code = Lymphocytes 1.3 1.0-5.5 #) [facility] H[id number] 05:20:00 Test Item Value Reference Range Interpretation Comments Segs-Bands # (test code = Segs-Bands #) 13.5 1.5-8.1 [facility] H[id number] 05:20:00 Test Item Value Reference Range Interpretation Comments Monocytes (test code = Monocytes) 2.8 2.0-12.0 [facility] Hospit[id number] 05:20:00 Test Item Value Reference Range Interpretation Comments Basophils # (test code 0.0 See_Comment [Aut omated message] The = Basophils #) system which generated this result tra nsmitted reference range : <=0.2. The reference r nikki was not used to int erpret this result as normal/abnormal . [facility] H[id number] 05:20:00 Test Item Value Reference Range Interpretation Comments Eosinophils # (test code 0.0 See_Comment [A utomated message] The = Eosinophils #) system whic h generated this result tra nsmitted reference range : <=0.5. The reference r nikki was not used to int erpret this result as normal/abnormal . [facility] Ho[id number] 05:20:00 Test Item Value Reference Range Interpretation Comments Monocytes # (test code 0.4 See_Comment [Aut omated message] The = Monocytes #) system which generated this result tra nsmitted reference range : <=0.8. The reference r nikki was not used to int erpret this result as normal/abnormal . [facility] H[id number] 05:20:00 Test Item Value Reference Range Interpretation Comments Lymphocytes (test code = Lymphocytes) 8.6 20.0-40.0 [facility] H[id number] 05:20:00 Test Item Value Reference Range Interpretation Comments RBC Morph (test code = Normal (02/11/17 12:20 RBC Morph) AM) [facility] Ho[id number] 05:20:00 Test Item Value Reference Range Interpretation Comments Segs (test code = Segs) 88.6 45.0-75.0 [facility] Hos[id number] 05:20:00 Test Item Value Reference Range Interpretation Comments Plt Morph (test code = Normal (02/11/17 12:20 Plt Morph) AM) [facility] AND [id number] 05:20:00 Test Item Value Reference Range Interpretation Comments UA Urobilinogen (test code = UA 2.0 0.1-1.0 Urobilinogen) [facility] AND [id number] 05:20:00 Test Item Value Reference Range Interpretation Comments UA Nitrite (test code Negative (02/11/17 12:20 = UA Nitrite) AM) [facility] AND [id number] 05:20:00 Test Item Value Reference Range Interpretation Comments UA Blood (test code = Moderate *ABN*(02/11/17 UA Blood) 12:20 AM) [facility] AND [id number] 05:20:00 Test Item Value Reference Range Interpretation Comments UA Leuk Est (test Negative (02/11/17 12:20 code = UA Leuk Est) AM) [facility] AND [id number] 05:20:00 Test Item Value Reference Range Interpretation Comments UA Color (test code = Yellow *NA*(02/11/17 UA Color) 12:20 AM) [facility] AND [id number] 05:20:00 Test Item Value Reference Range Interpretation Comments UA Turbidity (test code Slight *ABN*(02/11/17 = UA Turbidity) 12:20 AM) [facility] AND [id number] 05:20:00 Test Item Value Reference Range Interpretation Comments UA RBC (test code = 26 See_Comment [Automa rohit message] The UA RBC) system which ge nerated this result transmit rohit reference range : <=2. The reference range was not used to interpr et this result as flor l/abnormal. [facility] AND [id number] 05:20:00 Test Item Value Reference Range Interpretation Comments UA WBC (test code = 2 See_Comment [Automa rohit message] The UA WBC) system which ge nerated this result transmit rohit reference range : <=5. The reference range was not used to interpr et this result as flor l/abnormal. [facility] AND [id number] 05:20:00 Test Item Value Reference Range Interpretation Comments UA Mucus (test code = UA Mucus) Few /LPF [facility] AND [id number] 05:20:00 Test Item Value Reference Range Interpretation Comments UA Bacteria (test code = UA Occasional /HPF Bacteria) [facility] AND [id number] 05:20:00 Test Item Value Reference Range Interpretation Comments UA Sq Epi (test code = UA Sq Occasional /LPF Epi) [facility] AND [id number] 05:20:00 Test Item Value Reference Range Interpretation Comments UA Ketones (test code = UA Ketones) 80 mg/dL [facility] AND [id number] 05:20:00 Test Item Value Reference Range Interpretation Comments UA Bili (test code = Negative *NA*(02/11/17 UA Bili) 12:20 AM) [facility] AND [id number] 05:20:00 Test Item Value Reference Range Interpretation Comments UA Spec Grav (test code = UA Spec Grav) 1.017 [facility] AND [id number] 05:20:00 Test Item Value Reference Range Interpretation Comments UA Glucose (test code = UA Negative mg/dL Glucose) [facility] [id number] 05:20:00 Test Item Value Reference Range Interpretation Comments UA Protein (test code = UA Negative mg/dL Protein) [facility] AND [id number] 05:20:00 Test Item Value Reference Range Interpretation Comments UA pH (test code = UA pH) 8.0 5.0-8.0 Cee GrahamURINE [id number] 05:20:00 Test Item Value Reference Range Interpretation Comments U Preg (test code = U Negative (02/11/17 12:20 Preg) AM) Cee Graham Notes Date/Time Note Provider Source 2017-02-12 13:13:46-00:00 EXAM: ARUN Reveles HIDA scan. CLINICAL HX: abd pain - abd pain. Age: 21 years. Gender: Female. TECHNIQUE: After IV administration of 6 mCi of Tc-99m Choletec, scintigraphic AP images were obtained of the abdomen for 60 minutes. Additional AP and lateral image at 90 minutes was obtained. Penology Teacher static images were submitted for evaluation. COMPARISON: CT abdomen and pelvis: 02/11/2017. FINDINGS: Initial visualization of radiotracer occurs in t he below organs: -- Liver: At 5 minutes. -- Common duct: At 15-20 minutes. -- Small bowel: At 20 minutes. -- Gallbladder: At 90 minutes. Other: None. IMPRESSION: 1. Normal gallbladder filling confirming patency of the cystic duct. 2017-02-11 02:14:04-00:00 CLINICAL HISTORY: , - abdominal pain [place] EXAM: CT abdomen and pelvis with contrast 017 1:56 AM CDT COMPARISON: Acute abdominal series 02/11/2017. TECHNIQUE: Following the adm inistration of intravenous contrast, Volumetric CT acquisition was performed through the abdomen and pelvis. Images in the axial, coronal, and sagittal planes were presented for interpretation. Delayed excretory phase imag es were also obtained. This examination was perform ed according to our departmental dose optimization protocol, which includes automated exposure control, adjustment of the mA and/or kV according to the patient size and/or use of iterative reconstruction technique. Radiation dose/contrast: 75 omni DLP:1510.03 mGy-cm FINDINGS: The lung bases are clear. Th e visualized cardiomediastinal structures within normal limits. Within the upper abdomen, th e liver and spleen are normal in size and morphology. The gallbladder is normal in appearance. There is no intra or extrahepatic biliary ductal dilation. The pancreas and adrenal glands are normal in ap pearance. The kidneys are normal in si ze bilaterally and the ureters are normal in course and caliber. There are no renal calculi, distal obstructing stones, or evidence of hydronephrosis/hydroureter. There is circumferential gastric antral wall thi ckening on axial image 26. The small intestines are wit hin normal limits without wall thickening or bowel dilation. The appendix is well-visualized and normal, best seen on axial image 64 posterior to the cecum. The colon is stool filled and otherwise unremark able. There is a radiodense pill again noted in the pr oximal descending colon. Within the pelvis, the bladder and rectum are no rmal. The uterus is normal in appe arance. There is a 12 mm fat density lesion in the left ovary on axial image 72. The right ovary is normal in appearance.. There are no pathologically enlarged inguinal, retroperitoneal, portacaval, or mesenteric lymph nodes. The soft tissue structures of the abdominal wall are normal in appearance. The visualized osseous structures within normal limits for the patient's age. The abdominal aorta and its primary bran ches are normal in course and caliber. IMPRESSION: 1. No acute intra-abdominal process. 2. Circumferential gastric a ntral wall thickening, recommend correlation with the patient's symptoms of this may be secondary to nondistention versus peptic ulcer disease. 3. Small left ovarian dermoi d cyst measuring up to 1.2 cm in diameter. Given the patient's age and the size of the dermoid cyst, further evaluation with nonemergent MRI is recommended. Recommendations for f/u of complex cysts1: Dermoid: < 5 cm: MR w/IVC. If not surgically removed, an nual US. >5 cm: Surgical evaluation. If not surgically removed, MR w/IVC, then annual US. _ 1. Recommendations based upo n the 2010 SRU Consensus Conference Statement on the Management of asymptomatic ovarian and adnexal cysts imaged at US. Radiology. 2009;256(3):943-54 2017-02-11 01:02:15-00:00 Clinical History : , - abd pain [facility] [place] Exam : Acute Abdominal Series 02/11/2017 12:11 AM CDT Comparisons : none Findings : The lungs are clear without focal consolidation or pleural effusion. The heart is normal in size. The mediastinal con tours and normal. The thoracic spine, shoulders, and ribs are age appropriate. The bowel gas pattern is normal. There is no evidence of free air. There are no abnormal masses or calcifications. Limited evaluation of the liver and sple en demonstrate no gross abnormalities. The osseous structures are age appropriate. Impression: 1. No acute cardiopulmonary disease. 2. No acute intra-abdominal process
[2023-03-18 22:59] LABS: Hematocrit 38.7 % (36.0-45.0); Lymphocytes % 35.9 % (15.3-44.8); MCV 84.9 fL (80-100); MPV 7.3 fL (7.6-11.3); Platelets 389 thou/uL (152-406); RBC Red Blood Cell Count 4.56 M/uL (3.86-4.86)
[2023-03-18 23:03] LABS: Protime INR 0.97
[2023-03-18 23:17] LABS: Bilirubin Total 0.3 mg/dL (0.2-1.0); Potassium 3.5 mEq/L (3.5-5.1)
[2023-03-19] MEDS ORDERED: NA CHLORIDE 0.9% 250 ML ONE (01:32)
[2023-03-19] MEDS ORDERED: ONDANSETRON 4 MG/2 ML VIAL ONE (01:32)
[2023-03-19] MEDS ORDERED: MORPHINE 4 MG/ML SYR ONE (01:32)
[2023-03-19] MEDS ORDERED: CROTALIDAE ANTIVENIM 1 GM VIAL IV ONE (01:33)
--- NOTE | 2023-03-19 02:06 | EDPHYS ---
Physician Documentation [facility] Name: Kelsi Mirza Age: 27 yrs Sex: Female : 1995 Arrival Date: 03/18/2023 Time: 22:09 Bed 3 Private MD: ED Physician Cderic Shaw HPI: 03/18 23:43 This 27 yrs old Female presents to ER via EMS with complaints of Snakebite. rt 23:43 Patient presents to the ED with reported snakebite. She states that this occurred about rt 1 hour prior to arrival. She was bit on the right foot. There is mild swelling, pain to the area. 2 puncture wounds noted. No active bleeding. Denies other acute complaints at this time. Symptoms are moderate severity, no other aggravating or alleviating factors.. 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 jw7 Historical: - Allergies: 22:16 Sulfa (Sulfonamide Antibiotics); jw7 - Home Meds: 22:16 oral contraceptives [Active]; omeprazole 20 mg Oral Tablet,disintegrating,delayed jw7 release 1 tab daily [Active]; Ubrelvy 100 mg oral tablet 1 tab once for migraine [Active]; trazodone 100 mg Oral tablet 1 tab every day at bedtime [Active]; phentermine 15 mg oral capsule 1 cap daily [Active]; - PMHx: 22:16 Migraines; GERD; Asthma; Anxiety; Bipolar Depression; jw7 - PSHx: 22:16 wisdom teeth removal; jw7 - Immunization history:: Adult Immunizations up to date, Client reports receiving the 2nd dose of the Covid vaccine, Moderna Last tetanus immunization: up to date Flu vaccine is up to date. - Social history:: Smoking status: Patient denies any tobacco usage or history of. ROS: 23:43 Constitutional: Negative for fever, chills, and weight loss, Cardiovascular: Negative rt for chest pain, palpitations, and edema, Respiratory: Negative for shortness of breath, cough, wheezing, and pleuritic chest pain, Abdomen/GI: Negative for abdominal pain, nausea, vomiting, diarrhea, and constipation, Neuro: Negative for headache, weakness, numbness, tingling, and seizure, Psych: Negative for depression, anxiety, suicide ideation, homicidal ideation, and hallucinations. 23:43 MS/extremity: Positive for bite, pain, Negative for Exam: 23:43 Constitutional: This is a well developed, well nourished patient who is awake, alert, rt and in no acute distress. Head/Face: Normocephalic, atraumatic. Chest/axilla: Normal chest wall appearance and motion. Nontender with no deformity. No lesions are appreciated. Cardiovascular: Regular rate and rhythm with a normal S1 and S2. No gallops, murmurs, or rubs. Normal PMI, no JVD. No pulse deficits. Respiratory: Lungs have equal breath sounds bilaterally, clear to auscultation and percussion. No rales, rhonchi or wheezes noted. No increased work of breathing, no retractions or nasal flaring. Abdomen/GI: Soft, non-tender, with normal bowel sounds. No distension or tympany. No guarding or rebound. No evidence of tenderness throughout. Neuro: Awake and alert, GCS 15, oriented to person, place, time, and situation. Cranial nerves II-XII grossly intact. Motor strength 5/5 in all extremities. Sensory grossly intact. Cerebellar exam normal. Normal gait. Psych: Awake, alert, with orientation to person, place and time. Behavior, mood, and affect are within normal limits. 23:43 Musculoskeletal/extremity: 2 puncture wounds noted to the right lateral foot, minimal surrounding swelling, no proximal swelling, pulses, motor, sensation intact. Vital Signs: 22:13 BP 138 / 85; Pulse 99; Resp 18 S; Temp 98.1(O); Pulse Ox 100% on R/A; Weight 113.4 kg; jw7 Height 5 ft. 10 in. ; Pain 7/10; 23:30 BP 121 / 77; Pulse 89; Resp 18 S; Pulse Ox 100% on R/A; jw7 03/19 00:30 BP 135 / 72; Pulse 90; Resp 18 S; Pulse Ox 100% on R/A; jw7 01:19 BP 131 / 79; Pulse 96; Resp 17 S; Pulse Ox 100% on R/A; jw7 02:09 BP 136 / 87; Pulse 81; Resp 16 S; Pulse Ox 100% on R/A; jw7 03:00 BP 156 / 86; Pulse 79; Resp 17 S; Pulse Ox 100% on R/A; jw7 03/18 22:13 Body Mass Index 35.87 (113.40 kg, 177.8 cm) jw7 03/18 22:13 Pain Scale: Adult jw7 MDM: 03/18 22:14 Patient medically screened. rt 03/19 02:19 Differential diagnosis: Dry bite, crotolid envenomation. Data reviewed: vital signs, rt nurses notes, lab test result(s). Consideration of Admission/Observation Escalation of care including admission/observation considered. Patient requires transfer for higher level of care. I considered the following discharge prescriptions or medication management in the emergency department Medications were administered in the Emergency Department. See MAR Patient was observed for period of time in the ED, has significantly worsening swelling, pain out of proportion. After discussion with the patient, the decision was made to start [employer] and to transfer to trauma center. Counseling: I had a detailed discussion with the patient and/or guardian regarding the historical points, exam findings, and any diagnostic results supporting the discharge/admit diagnosis, lab results, the need to transfer to another facility. 03/18 22:15 Order name: CBC with Diff; Complete Time: 23:18 rt 03/18 22:15 Order name: CMP; Complete Time: 23:18 rt 03/18 22:15 Order name: CPK; Complete Time: 23:18 rt 03/18 22:15 Order name: PT-INR; Complete Time: 23:18 rt 03/18 22:15 Order name: Ptt, Activated; Complete Time: 23:18 rt Administered Medications: 01:52 Drug: morphine IVP or IV 4 mg Route: IVP; Infused Over: 4 mins; Site: right antecubital;jw7 02:58 Follow up: Response: No adverse reaction jw7 01:52 Drug: Ondansetron IVP 4 mg Route: IVP; Site: right antecubital; jw7 02:58 Follow up: Response: No adverse reaction jw7 02:10 Drug: CroFab IV 6 vials Route: IV; Rate: calculated rate; Site: right antecubital; as6 03:55 Follow up: Response: No adverse reaction; IV Status: Completed infusion; IV Intake: jw7 250ml Disposition Summary: 03/19/23 02:06 Transfer Ordered Reason: Higher level of care rt Condition: Fair rt Problem: new rt Symptoms: have worsened rt Transfer Location: [facility](03/19/23 02:35) rt Accepting Physician: (03/19/23 03:54) jw7 Diagnosis - Crotolid envenomation of right foot rt Forms: - Medication Reconciliation Form rt - SBAR form rt Critical care time excluding procedures: 05:37 Critical care time: Bedside Care: 30 minutes, Consultation: 10 minutes. Total time: 40 rt minutes Signatures: Dispatcher [employer] Stanley Burciaga RN RN as6 Patria Lowe RN RN jw7 Cedric Shaw MD MD rt Corrections: (The following items were deleted from the chart) 02:35 02:06 rt rt 02:35 02:06 [facility] rt rt 03:54 02:35 rt jw7
--- NOTE | 2023-03-19 02:06 | ER ---
Nurse's Notes [facility] Name: Kelsi Mirza Age: 27 yrs Sex: Female : 1995 Arrival Date: 03/18/2023 Time: 22:09 Bed 3 Private MD: Diagnosis: Crotolid envenomation of right foot Presentation: 03/18 22:13 Chief complaint: EMS states: bite by a snake around 2100. suspected copperhead. jw Coronavirus screen: Vaccine status: Patient reports receiving the 2nd dose of the covid vaccine. Date 2020 Moderna. Ebola Screen: No symptoms or risks identified at this time. Initial Sepsis Screen: Does the patient meet any 2 criteria? No. Patient's initial sepsis screen is negative. Does the patient have a suspected source of infection? No. Patient's initial sepsis screen is negative. Risk Assessment: Do you want to hurt yourself or someone else? Patient reports no desire to harm self or others. Onset of symptoms was March 18, 2023 at 21:00. 22:13 Method Of Arrival: EMS: [place] [id number] 22:13 Acuity: MELONY 3 jw7 Triage Assessment: 22:16 General: Appears in no apparent distress. uncomfortable, Behavior is calm, cooperative. jw7 Pain: Complains of pain in right foot Pain does not radiate. Pain currently is 7 out of 10 on a pain scale. Quality of pain is described as burning, aching, sharp, Pain began 2 hours ago. Is intermittent. EENT: No deficits noted. No signs and/or symptoms were reported regarding the EENT system. Neuro: No deficits noted. Duff Agitation-Sedation Scale (RASS): 0 - Alert and Calm Level of Consciousness is awake, alert, obeys commands, Oriented to person, place, time, situation. Cardiovascular: No deficits noted. Capillary refill < 3 seconds Clubbing of nail beds is absent JVD is absent Patient's skin is warm and dry. Respiratory: No deficits noted. Airway is patent Trachea midline Respiratory effort is even, unlabored, Respiratory pattern is regular, symmetrical. GI: No deficits noted. No signs and/or symptoms were reported involving the gastrointestinal system. Abdomen is round non-distended. : No deficits noted. No signs and/or symptoms were reported regarding the genitourinary system. Derm: Skin is healthy with good turgor, Skin is dry, Skin is normal, Skin temperature is warm Wound noted right foot Other: snake bite, with 2 puncture wounds to lateral aspect of foot. Musculoskeletal: No deficits noted. No signs and/or symptoms reported regarding the musculoskeletal system. Circulation, motion, and sensation intact. Capillary refill < 3 seconds, Range of motion: intact in all extremities. Injury Description: Bite sustained to right foot caused by a snake. 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 jw7 Historical: - Allergies: 22:16 Sulfa (Sulfonamide Antibiotics); jw7 - Home Meds: 22:16 oral contraceptives [Active]; omeprazole 20 mg Oral Tablet,disintegrating,delayed jw7 release 1 tab daily [Active]; Ubrelvy 100 mg oral tablet 1 tab once for migraine [Active]; trazodone 100 mg Oral tablet 1 tab every day at bedtime [Active]; phentermine 15 mg oral capsule 1 cap daily [Active]; - PMHx: 22:16 Migraines; GERD; Asthma; Anxiety; Bipolar Depression; jw7 - PSHx: 22:16 wisdom teeth removal; jw7 - Immunization history:: Adult Immunizations up to date, Client reports receiving the 2nd dose of the Covid vaccine, Moderna Last tetanus immunization: up to date Flu vaccine is up to date. - Social history:: Smoking status: Patient denies any tobacco usage or history of. Screenin:27 [facility] ED Fall Risk Assessment (Adult) History of falling in the last 3 months, jw7 including since admission No falls in past 3 months (0 pts) Score/Fall Risk Level 0 - 2 = Low Risk. Abuse screen: Denies threats or abuse. Denies injuries from another. Nutritional screening: No deficits noted. Tuberculosis screening: No symptoms or risk factors identified. Assessment: 23:00 Reassessment: Patient appears in no apparent distress at this time. No changes from jw7 previously documented assessment. Patient and/or family updated on plan of care and expected duration. Pain level reassessed. Patient is alert, oriented x 3, equal unlabored respirations, skin warm/dry/pink. Patient states symptoms have not improved. 03/19 00:00 Reassessment: Patient appears in no apparent distress at this time. No changes from jw7 previously documented assessment. Patient and/or family updated on plan of care and expected duration. Pain level reassessed. Patient is alert, oriented x 3, equal unlabored respirations, skin warm/dry/pink. 01:00 Reassessment: Patient appears in no apparent distress at this time. No changes from jw7 previously documented assessment. Patient and/or family updated on plan of care and expected duration. Pain level reassessed. Patient is alert, oriented x 3, equal unlabored respirations, skin warm/dry/pink. 01:00 General: increased swelling and pain to bite location. as6 01:00 Cardiovascular: Pulses are palpable in right posterior tibial artery and right dorsalis as6 pedis artery. 02:08 Reassessment: Patient appears in no apparent distress at this time. No changes from jw7 previously documented assessment. Patient and/or family updated on plan of care and expected duration. Pain level reassessed. Patient is alert, oriented x 3, equal unlabored respirations, skin warm/dry/pink. Patient states symptoms have not improved. 02:14 Cardiovascular: Pulses are palpable in right posterior tibial artery and right dorsalis as6 pedis artery. Musculoskeletal: Circulation, motion, and sensation intact. Vital Signs: 03/18 22:13 BP 138 / 85; Pulse 99; Resp 18 S; Temp 98.1(O); Pulse Ox 100% on R/A; Weight 113.4 kg; jw7 Height 5 ft. 10 in. ; Pain 7/10; 23:30 BP 121 / 77; Pulse 89; Resp 18 S; Pulse Ox 100% on R/A; jw7 03/19 00:30 BP 135 / 72; Pulse 90; Resp 18 S; Pulse Ox 100% on R/A; jw7 01:19 BP 131 / 79; Pulse 96; Resp 17 S; Pulse Ox 100% on R/A; jw7 02:09 BP 136 / 87; Pulse 81; Resp 16 S; Pulse Ox 100% on R/A; jw7 03:00 BP 156 / 86; Pulse 79; Resp 17 S; Pulse Ox 100% on R/A; jw7 03/18 22:13 Body Mass Index 35.87 (113.40 kg, 177.8 cm) jw7 03/18 22:13 Pain Scale: Adult [facility] ED Course: 03/18 22:12 Patient arrived in ED. 7 22:13 Cedric Shaw MD is Attending Physician. rt 22:15 Maintain EMS IV. Dressing intact. Good blood return noted. Site clean \T\ dry. Gauge \T\ jw 7 site: 22g, L Hand. 22:16 Triage completed. jw7 22:27 Patient has correct armband on for positive identification. Bed in low position. Call jw7 light in reach. Side rails up X2. 22:28 Patria Lowe RN is Primary Nurse. jw7 22:44 Arm band placed on. jw7 22:44 Ptt, Activated Sent. jw7 22:44 PT-INR Sent. jw7 22:44 CPK Sent. jw7 22:44 CMP Sent. jw7 22:44 CBC with Diff Sent. jw7 03/19 01:14 Inserted saline lock: 20 gauge in right antecubital area, using aseptic technique. as6 Blood collected. 03:54 Provided Education on: need for transfer. jw7 03:54 No provider procedures requiring assistance completed. Patient transferred, IV remains jw7 in place. Administered Medications: 01:52 Drug: morphine IVP or IV 4 mg Route: IVP; Infused Over: 4 mins; Site: right antecubital;jw7 02:58 Follow up: Response: No adverse reaction jw7 01:52 Drug: Ondansetron IVP 4 mg Route: IVP; Site: right antecubital; jw7 02:58 Follow up: Response: No adverse reaction jw7 02:10 Drug: CroFab IV 6 vials Route: IV; Rate: calculated rate; Site: right antecubital; as6 03:55 Follow up: Response: No adverse reaction; IV Status: Completed infusion; IV Intake: jw7 250ml Medication: 02:10 VIS not applicable for this client. as6 Intake: 03:55 IV: 250ml; Total: 250ml. jw7 Outcome: 02:06 ER care complete, transfer ordered by . rt 03:54 Transferred by ground EMS to [facility]. jw7 03:54 Condition: stable 03:54 Instructed on the need for transfer, Demonstrated understanding of instructions. 03:54 Patient left the ED. jw7 Signatures: Stanley Parra RN RN as6 Patria Lowe RN RN jw7 Cedric Shaw MD MD rt
== END 2023-03-19 03:54 | disposition short-term general hospital (02) ==
LOC: ER 22:09
DX: T63.001A Toxic effect of unspecified snake venom, accidental (unintentional), initial encounter (principal); S91.331A Puncture wound without foreign body, right foot, initial encounter; Z88.2 Allergy status to sulfonamides
CPT/HCPCS: 36415; 80053; 82550; 85025; 85610; 85730; 96365; 96366; 96375; 99285; J0840; J2405; J7050

== ENCOUNTER 2023-05-22 10:28 | Emergency (ER) | payer SELFPAY ==
--- OUTSIDE RECORDS SUMMARY | 2023-05-22 10:37 | XMS REPORT | Continuity of Care Document ---
:1995 Author Organization [facility] t Address [address] [facility] [address] [place] [address] Care Team Providers Name Role Phone MASONLAKIA Temo Primary Care Physician Unavailable CHAD FOFANA Attending Clinician Unavailable Chad Fofana MD Attending Clinician Doctor Unassigned, [place] Attending Clinician Unavailable FABIO WILCOX Attending Clinician Unavailable Fabio Lindsay Attending Clinician Steffen Arcos MD Attending Clinician Edward STORY Attending Clinician Unavailable Edward Liang Attending Clinician Dorothea Brasher Attending Clinician Kianna Corona LMSW Attending Clinician Unavailable Dixon Youngblood DO Attending Clinician Lucero Goyal RN Attending Clinician Unavailable [facility] Attending Clinician Unavailable Destiney Fabian Attending Clinician DESTINEY TELLEZ Attending Clinician Unavailable Colton Castano Attending Clinician CHAD FOFANA Admitting Clinician Unavailable Chad Fofana MD Admitting Clinician Edward STORY Admitting Clinician Unavailable Colton Castano Admitting Clinician Payers Payer Name Policy Type Policy Number Effective Date Expiration Date Justin WORTHINGTON [place] [id number] 2019 00:00:00 WOMEN Problems Condition Condition Condition Status Onset Resolution Last Treating Co mments Source Name Details Category Date Date Treatment Clinician Date Snake Snake Disease Active Univers bite, bite, 8-21 ity of initial initial 00:00: [place] encounter encounter 00 [facility] Branch Cervical Cervical Disease Active 2018-07 Overview: Un [...] Screening Disease Active Uni vers examinatio examinatio 2-03 it y of n [place] STD n [place] 00 [facility] transmitte transmitte Br anch d disease) d disease) Screening Screening Disease Active Overview: Univers for STD for STD 09-02 Formattin ity o f (sexually (sexually 00:00: [place] of this [place] transmitte transmitte 00 note Me dical d disease) d disease) might be Branch different from the original. 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 Gastroesop Gastroeso Problem Resolve 2017-02-15 Memoria hageal phageal d 01:07:55 l reflux reflux [place] disease disease (disorder) (disorder) Resolved Problem 02/15/2017 [place] Asthma Asthma Problem Resolve 2017-02-15 Mem oria (disorder) (disorder) d 01:07:55 l Resolved [place] Problem 02/15/2017 [facility] [place] Migraine Migraine Problem Resolve 2017-02-15 Memoria (disorder) (disorder) d 01:07:55 l Resolved [place] Problem 02/15/2017 [facility] [place] Panic Panic Problem Active Common attack attack [facility] Vaginal Vaginal Problem Active Common discharge discharge [facility] Anxiety Anxiety Problem Active Common [facility] Allergies, Adverse Reactions, Alerts Allergy Allergy Status Severity Reaction(s) Onset Inactive Treating Comm ents Source Name Type Date Date Clinician Adhesive Propensi Active Rash 2018-07 Univ s ty to 0-18 ity of adverse [...] sulfa sulfa Active Memoria drugs drugs l [place] Social History Social Habit Start Date Stop Date Quantity Comments Source Gender identity Universit y of [facility] Sexual orientation Univer sit of [facility] Alcohol intake 2023-03-19 2023-03-19 Current University of 00:00:00 00:00:00 non-drinker of [facility] alcohol Branch (finding) Exposure to 2022-04-15 2022-04-25 Not sure University SARS-CoV-2 (event) 00:00:00 12:37:00 [facility] Tobacco use and 2022-04-25 2022-04-25 Smokeless Universit y of exposure 00:00:00 00:00:00 tobacco non-user [facility] History of Social 2022-04-25 2022-04-25 Univers ity of function 00:00:00 00:00:00 [facility] Social History 2017-02-11 2017-02-11 [facility] Luis lugo 08:02:49 08:02:49 Sex [birth year] At [birth year] Universit y of 00:00:00 00:00:00 [facility] Smoking Status Start Date Stop Date Source Never smoked tobacco [facility] Medications Ordered Filled Start Stop Current Ordering Indication Dosage Frequency Signature Comments Components Source Medication Medication Date Date Medication? Clinician (SIG) Name Name enoxaparin 2022-0 Yes 30mg 30 mg, Unive rs (LOVENOX) 03-20 Subcutaneo ity of injection 01:00: us, Q12H, [place] as 30 mg 00 First dose Medical on [facility] Branch 03/19/23 at 2000, Until Discontinu ed, Routine pantoprazol 2022-0 Yes 40mg 40 mg, Univ ers e 03-19 Enteral, ity of (PROTONIX) 14:00: DAILY, [place] 2 mg/mL 00 First dose Medica l oral on [place] suspension 03/19/23 at 40 mg 0900, Until Discontinu ed, Routine morpHINE (2 2022- Yes 2mg 2 mg, Slow Univers mg/mL) 03-19 IV Push, ity of injection 2 10:29: Q3HPRN, [place] mg 51 Starting Medical on Sun Branch 03/19/23 at 0529, Until Discontinu ed, Routine, Pain (scale 7-10) HYDROcodone 2022-0 Yes 1{tbl} 1 tablet, Univers -acetaminop 03-19 Oral, ity of hen (NORCO 10:29: Q4HPRN, [place] 5) 5-325 mg 42 Starting Medi elizabeth tablet 1 on [place] tablet 03/19/23 at 0529, Until Discontinu ed, Routine, Pain (scale 4-6) acetaminoph 2022-0 Yes 650mg 650 mg, Un dirk en 03-19 Oral, ity of (TYLENOL) 10:29: Q6HPRN, [place] tablet 650 34 Starting Medic al mg on Sun Branch 03/19/23 at 0529, Until Discontinu ed, Routine, Pain (scale 1-3) ibuprofen 2022-0 Yes [id number] 600mg Take 1 Univers 600 mg 03-19 tablet by ity of tablet 00:00: mouth [place] 00 every 6 Medical (six) Branch hours as needed for Pain (scale 4-6). acetaminoph 2023-0 2024- Yes [id number] 650mg Take 2 Univers en 325 mg 8-21 08-21 tablets by ity of tablet 00:00: 04:59 mouth [place] 00 :00 every 6 Medical (six) Branch hours as needed for Pain (scale 4-6). ibuprofen 2022-0 Yes [id number] 600mg Take 1 Univers 600 mg 8-24 tablet by ity of tablet 00:00: mouth [place] 00 every 6 Medical (six) Branch hours as needed for Pain (scale 4-6). ibuprofen 2022-0 Yes [id number] 600mg Take 1 Univers 600 mg 8-24 tablet by ity of tablet 00:00: mouth [place] 00 every 6 Medical (six) Branch hours as needed for Pain (scale 4-6). ibuprofen 2-0 Yes [id number] 600mg Take 1 Univers 600 mg 8-24 tablet by ity of tablet 00:00: mouth [place] 00 every 6 Medical (six) Branch hours as needed for Pain (scale 4-6). ibuprofen 2-0 Yes [id number] 600mg Take 1 Univers 600 mg 8-24 tablet by ity of tablet 00:00: mouth [place] 00 every 6 Medical (six) Branch hours as needed for Pain (scale 4-6). ibuprofen 2-0 Yes [id number] 600mg Take 1 Univers 600 mg 8-24 tablet by ity of tablet 00:00: mouth [place] 00 every 6 Medical (six) Branch hours as needed for Pain (scale 4-6). ibuprofen 2022-0 Yes [id number] 600mg Take 1 Univers 600 mg 8-24 tablet by ity of tablet 00:00: mouth [place] 00 every 6 Medical (six) Branch hours as needed for Pain (scale 4-6). ibuprofen 2022-0 Yes [id number] 600mg Take 1 Univers 600 mg 8-24 tablet by ity of tablet 00:00: mouth [place] 00 every 6 Medical (six) Branch hours as needed for Pain (scale 4-6). ibuprofen 2022-0 Yes [id number] 600mg Take 1 Univers 600 mg 8-24 tablet by ity of tablet 00:00: mouth [place] 00 every 6 Medical (six) Branch hours as needed for Pain (scale 4-6). ibuprofen 2022-0 2023- No [id number] 600mg Take 1 Univers 600 mg 8-24 08-21 tablet by ity of tablet 00:00: 00:00 mouth [place] 00 :00 every 6 Medical (six) Branch hours as needed for Pain (scale 4-6). ondansetron Yes [id number] 4mg Take 1 Univers (ZOFRAN 8-18 tablet by ity of ODT) 4 mg 00:00: mouth [place] disintegrat 00 every 8 Medic al ing tablet (eight) Branch hours as needed for Nausea and Vomiting (N/V). proMETHazin Yes [id number] 25mg Insert 1 Univers e 25 mg 8-18 Suppositor ity of suppository 00:00: y into [place] 00 rectum Medical every 6 Branch (six) hours as needed for Nausea and Vomiting (N/V) or N/V unresponsi ve to Ondansetro n. ondansetron Yes [id number] 4mg Take 1 Univers (ZOFRAN 8-18 tablet by ity of ODT) 4 mg 00:00: mouth [place] disintegrat 00 every 8 Medic al ing tablet (eight) Branch hours as needed for Nausea and Vomiting (N/V). proMETHazin Yes [id number] 25mg Insert 1 Univers e 25 mg 8-18 Suppositor ity of suppository 00:00: y into [place] 00 rectum Medical every 6 Branch (six) hours as needed for Nausea and Vomiting (N/V) or N/V unresponsi ve to Ondansetro n. ondansetron Yes [id number] 4mg Take 1 Univers (ZOFRAN 8-18 tablet by ity of ODT) 4 mg 00:00: mouth [place] disintegrat 00 every 8 Medic al ing tablet (eight) Branch hours as needed for Nausea and Vomiting (N/V). proMETHazin Yes [id number] 25mg Insert 1 Univers e 25 mg 8-18 Suppositor ity of suppository 00:00: y into [place] 00 rectum Medical every 6 Branch (six) hours as needed for Nausea and Vomiting (N/V) or N/V unresponsi ve to Ondansetro n. ondansetron Yes [id number] 4mg Take 1 Univers (ZOFRAN 8-18 tablet by ity of ODT) 4 mg 00:00: mouth [place] disintegrat 00 every 8 Medic al ing tablet (eight) Branch hours as needed for Nausea and Vomiting (N/V). proMETHazin Yes [id number] 25mg Insert 1 Univers e 25 mg 8-18 Suppositor ity of suppository 00:00: y into [place] 00 rectum Medical every 6 Branch (six) hours as needed for Nausea and Vomiting (N/V) or N/V unresponsi ve to Ondansetro n. ondansetron Yes [id number] 4mg Take 1 Univers (ZOFRAN 8-18 tablet by ity of ODT) 4 mg 00:00: mouth [place] disintegrat 00 every 8 Medic al ing tablet (eight) Branch hours as needed for Nausea and Vomiting (N/V). proMETHazin Yes [id number] 25mg Insert 1 Univers e 25 mg 8-18 Suppositor ity of suppository 00:00: y into [place] 00 rectum Medical every 6 Branch (six) hours as needed for Nausea and Vomiting (N/V) or N/V unresponsi ve to Ondansetro n. ondansetron Yes [id number] 4mg Take 1 Univers (ZOFRAN 8-18 tablet by ity of ODT) 4 mg 00:00: mouth [place] disintegrat 00 every 8 Medic al ing tablet (eight) Branch hours as needed for Nausea and Vomiting (N/V). proMETHazin Yes [id number] 25mg Insert 1 Univers e 25 mg 8-18 Suppositor ity of suppository 00:00: y into [place] 00 rectum Medical every 6 Branch (six) hours as needed for Nausea and Vomiting (N/V) or N/V unresponsi ve to Ondansetro n. ondansetron 0 Yes [id number] 4mg Take 1 Univers (ZOFRAN 8-18 tablet by ity of ODT) 4 mg 00:00: mouth [place] disintegrat 00 every 8 Medic al ing tablet (eight) Branch hours as needed for Nausea and Vomiting (N/V). proMETHazin Yes [id number] 25mg Insert 1 Univers e 25 mg 8-18 Suppositor ity of suppository 00:00: y into [place] 00 rectum Medical every 6 Branch (six) hours as needed for Nausea and Vomiting (N/V) or N/V unresponsi ve to Ondansetro n. ondansetron Yes [id number] 4mg Take 1 Univers (ZOFRAN 8-18 tablet by ity of ODT) 4 mg 00:00: mouth [place] disintegrat 00 every 8 Medic al ing tablet (eight) Branch hours as needed for Nausea and Vomiting (N/V). proMETHazin Yes [id number] 25mg Insert 1 Univers e 25 mg 8-18 Suppositor ity of suppository 00:00: y into [place] 00 rectum Medical every 6 Branch (six) hours as needed for Nausea and Vomiting (N/V) or N/V unresponsi ve to Ondansetro n. ondansetron 3- No [id number] 4mg Take 1 Univers (ZOFRAN 8-18 08-21 tablet by ity of ODT) 4 mg 00:00: 00:00 mouth [place] disintegrat 00 :00 every 8 Medic al ing tablet (eight) Branch hours as needed for Nausea and Vomiting (N/V). proMETHazin 3- No [id number] 25mg Insert 1 Univers e 25 mg 8-18 08-21 Suppositor ity o f suppository 00:00: 00:00 y into [place] as 00 :00 rectum Medical every 6 Branch (six) hours as needed for Nausea and Vomiting (N/V) or N/V unresponsi ve to Ondansetro n. Diflucan Diflucan Yes [place] 1 tablet Common 4-30 [facility] 00:00: - [facility] 00 [facility] pantoprazol Yes 40 mg = 1 M emoria e 40 MG 7-17 tab, PO, l Enteric 22:20: Daily, # Yevgeniy n Coated 00 30 tab, 1 Tablet Refill(s) [Protonix] Ondansetron Yes 8 mg = 1 Me moria 8 MG 7-17 tab, PO, l Disintegrat 22:20: TID, PRN He rmann ing Tablet 00 Nausea and [Zofran] Vomiting, Dissolve tab under tongue, X 4 day, # 10 tab, 0 Refill(s) Ondansetron 2017-0 Yes 8 mg = 1 [...] 00 30 tab, 1 Tablet Refill(s) [Protonix] Probiotic Yes 1 cap, PO, Me moria Formula 7-17 Daily, 0 l oral 20:01: Refill(s) [place] capsule 00 omeprazole Yes 20 mg = [...] MG Oral Tablet) } Pack [Microgesti n .12/26] Probiotic Yes 1 cap, PO, Me moria Formula 7-17 Daily, 0 l oral 20:01: Refill(s) [place] capsule omeprazole Yes 20 mg = 1 Me moria 20 mg oral 7-17 cap, PO, l delayed 20:01: Daily, # Yevgeniy n release 00 30 cap, 0 capsule Refill(s) Esomeprazol No Daily, 0 Me moria e 7-17 Refill(s) l 20:01: [place] 00 Famotidine Yes 20 mg = 1 [...] 7-17 Daily, 0 l oral 20:01: Refill(s) [place] capsule 00 omeprazole Yes 20 mg = 1 Me moria 20 mg oral 7-17 cap, PO, l delayed 20:01: Daily, # Yevgeniy n release 00 30 cap, 0 capsule Refill(s) Esomeprazol 2017 No Daily, 0 Me moria e 7-17 Refill(s) l 20:01: [place] 00 Famotidine Yes 20 mg = 1 [...] cap, PO, l delayed 20:01: Daily, # Yevgeiny n release 00 30 cap, 0 capsule Refill(s) Esomeprazol No Daily, 0 Me moria e 7-17 Refill(s) l 20:01: [place] 00 Famotidine Yes 20 mg = 1 [...] Me moria e 7-17 Refill(s) l 20:01: [place] Famotidine Yes 20 mg = 1 Me moria 20 MG Oral 7-17 tab, PO, l Tablet 20:01: BID, # 60 Yevgeniy n [Pepcid] 00 tab, 0 Refill(s) { Yes 1 tab, PO, Memoria (Ethinyl 7-17 Daily, # l Estradiol 20:01: 21 tab, 0 Her gomez 0.03 MG / 00 Refill(s) norethindro ne acetate 1.5 MG Oral Tablet) } Pack [Microgesti n 1.5/30 Day] Zofran No Notes: Memoria 7-16 (Same as: l 21:00: Zofran) [place] MEDICATION WASTE Product Size: 4 mg Product Wasted: ___ mg Zofran No Notes: Memoria -16 (Same as: l 21:00: Zofran) [place] MEDICATION WASTE Product Size: 4 mg Product Wasted: ___ mg Zofran No Notes: Memoria -16 (Same as: l 21:00: Zofran) [place] MEDICATION WASTE Product Size: 4 mg Product Wasted: ___ mg Zofran No Notes: Memoria 7-16 (Same as: l 21:00: Zofran) [place] MEDICATION WASTE Product Size: 4 mg Product Wasted: ___ mg Zofran No Notes: Memoria 7-16 (Same as: l 21:00: Zofran) [place] MEDICATION WASTE Product Size: 4 mg Product Wasted: ___ mg Lactulose No Notes: Memori a 667 MG/ML 02-11 (Same l Oral 14:15: as:Chronul [place] Solution 00 ac) Lactulose No Notes: Memori a 667 MG/ML 7-16 (Same l Oral 14:15: as:Chronul [place] Solution 00 ac) Lactulose No Notes: Memori a 667 MG/ML 7-16 (Same l Oral 14:15: as:Chronul [place] Solution 00 ac) Lactulose No Notes: Memori a 667 MG/ML 7-16 (Same l Oral 14:15: as:Chronul [place] Solution 00 ac) Lactulose No Notes: Memori a 667 MG/ML 7-16 (Same l Oral 14:15: as:Chronul [place] Solution 00 ac) Pepcid No Notes: Memoria 7-16 (Same as: l 14:00: Pepcid) [place] 00 Can be dilute in 5-10cc NS IVP: Slow IV push over at least 2 minutes. Pepcid No Notes: Memoria 7-16 (Same as: l 14:00: Pepcid) [place] 00 Can be dilute in 5-10cc NS IVP: Slow IV push over at least 2 minutes. Pepcid No Notes: Memoria 7-16 (Same as: l 14:00: Pepcid) [place] 00 Can be dilute in 5-10cc NS IVP: Slow IV push over at least 2 minutes. Pepcid No Notes: Memoria 7-16 (Same as: l 14:00: Pepcid) [place] 00 Can be dilute in 5-10cc NS [...] Memoria 7-16 (Same as: l 13:00: Flagyl) [place] 00 Avoid alcohol. Flagyl No Notes: Memoria 7-16 (Same as: l 13:00: Flagyl) [place] 00 Avoid alcohol. Flagyl 2017-0 No Notes: Memoria 7-16 (Same as: l 13:00: Flagyl) [place] 00 Avoid alcohol. Flagyl No Notes: Memoria 7-16 (Same as: l 13:00: Flagyl) [place] 00 Avoid alcohol. potassium No Notes: Memori [...] 7-16 (Same as: l 12:00: K-Dur 20) [place] 00 "Do Not Crush" With food and full glass of water NS + KCL No Notes: Memoria 40mEq/L 7-16 PREMIX IV l 1000ml 09:42: - Do Not [place] (Premix) 00 Alter 1,000 mL WASTE: F/P - Sink; E - Municipal Trash Bin NS + KCL No Notes: Memoria 40mEq/L 7-16 PREMIX IV l 1000ml 09:42: - Do Not [place] (Premix) 00 Alter 1,000 mL WASTE: F/P - Sink; E - Municipal Trash Bin NS + KCL No Notes: Memoria 40mEq/L 7-16 PREMIX IV l 1000ml 09:42: - Do Not [place] (Premix) 00 Alter 1,000 mL WASTE: F/P - Sink; E - Municipal Trash Bin NS + KCL No Notes: Memoria 40mEq/L 7-16 PREMIX IV l 1000ml 09:42: - Do Not [place] (Premix) 00 Alter 1,000 mL WASTE: F/P - Sink; E - Municipal Trash Bin NS + KCL No Notes: Memoria 40mEq/L 7-16 PREMIX IV l 1000ml 09:42: - Do Not [place] (Premix) 00 Alter 1,000 mL WASTE: F/P [...] Infuse at l 07:01: a rate of [place] 00 10 mEq/hr. (Same as: KCL) potassium No Notes: Memori a chloride 7-16 Infuse at l 07:01: a rate of [place] 00 10 mEq/hr. (Same as: KCL) potassium No Notes: Memori a chloride 7-16 Infuse at l 07:01: a rate of [place] 00 10 mEq/hr. (Same as: KCL) Levaquin No Notes: Memoria 7-16 (Same l 07:00: as:Levaqui [place] 00 n) Levaquin No Notes: Memoria 7-16 (Same l 07:00: as:Levaqui [place] 00 n) Levaquin No Notes: Memoria 7-16 (Same l 07:00: as:Levaqui [place] 00 n) Levaquin No Notes: Memoria 7-16 (Same l 07:00: as:Levaqui [place] 00 n) Levaquin No Notes: Memoria 7-16 (Same l 07:00: as:Levaqui [place] 00 n) Reglan No Notes: Memoria 7-16 (Same as: l 06:56: Reglan) [place] 00 Reglan No Notes: Memoria 7-16 (Same as: l 06:56: Reglan) [place] 00 Reglan No Notes: Memoria 7-16 (Same as: l 06:56: Reglan) [place] 00 Reglan No Notes: Memoria 02-11 (Same as: l 06:56: Reglan) [place] 00 Reglan No Notes: Memoria 02-11 (Same as: l 06:56: Reglan) [place] 00 Saline No Notes: Memoria Flush 0.9% 02-11 (Same as: l 06:55: BD [place] 00 Posiflush) Ondansetron No Notes: Vinnie sae 02-11 (Same as: l 06:55: Zofran) [place] 00 MEDICATION WASTE Product Size: 4 mg Product Wasted: ___ mg Hydralazine No Notes: Vinnie sae 02-11 (Same as: l 06:55: Apresoline ) Push over 5 minutes Albuterol No Notes: Memori a 0.833 MG/ML 02-11 (Same as: l / 06:55: Duoneb) [place] Ipratropium 00 [place] 0.167 MG/ML Inhalant Solution [DuoNeb] Nitroglycer No Notes: Vinnie sae in 02-11 (Same l 06:55: as:Nitroqu ick, Nitrostat) "Do Not Crush" Sublingual tablet Acetaminoph No Notes: Do M emoria en 02-11 not exceed l 06:55: 4 gm/day. [place] (Same as: Tylenol) Morphine No Notes: Memoria 02-11 (Same l 06:55: as:MORPhin e Sulfate) Acetaminoph No Notes: Vinnie sae en 325 MG / 02-11 (Same as: l Hydrocodone 06:55: [place] Alyssia nn Bitartrate 00 325/5) Do 5 [...] 0.9% 02-11 (Same as: l 06:55: BD [place] 00 Posiflush) Ondansetron No Notes: Vinnie sae 02-11 (Same as: l 06:55: Zofran) [place] 00 MEDICATION WASTE Product Size: 4 mg Product Wasted: ___ mg Hydralazine No Notes: Vinnie sae 02-11 (Same as: l 06:55: Apresoline [place] 00 ) Push over 5 minutes Albuterol No Notes: Memori a 0.833 MG/ML 02-11 (Same as: l / 06:55: Duoneb) [place] Ipratropium 00 [place] 0.167 MG/ML Inhalant Solution [DuoNeb] Nitroglycer No Notes: Vinnie sae in 02-11 (Same l 06:55: as:Nitroqu [place] 00 ick, Nitrostat) "Do Not Crush" Sublingual tablet Acetaminoph No Notes: Do M emoria en 02-11 not exceed l 06:55: 4 gm/day. [place] 00 (Same as: Tylenol) Morphine No Notes: Memoria - (Same l 06:55: as:MORPhin [place] 00 e Sulfate) Acetaminoph No Notes: Vinnie sae en 325 MG / 02-11 (Same as: l Hydrocodone 06:55: [place] Alyssia nn Bitartrate 00 325/5) Do 5 MG Oral not exceed Tablet 4gm/day of acetaminop hen. Sodium No 1,000 mL, Memori a Chloride 02-11 Rate: 125 l 0.154 06:55: ml/hr, [place] MEQ/ML 00 Infuse Injectable over: 8 Solution hr, Route: IV, Dosing Weight 86.818 kg, Total Volume: 1,000, Start date: 02/11/17 1:55:00 CDT, Duration: 30 day, Stop date: 03/13/17 1:54:00 CDT Saline No Notes: Memoria Flush 0.9% 02-11 (Same as: l 06:55: BD [place] 00 Posiflush) Ondansetron No Notes: Vinnie sae 02-11 (Same as: l 06:55: Zofran) [place] 00 MEDICATION WASTE Product Size: 4 mg Product Wasted: ___ mg Hydralazine No Notes: Vinnie sae 02-11 (Same as: l 06:55: Apresoline [place] 00 ) Push over 5 minutes Albuterol No Notes: Memori a 0.833 MG/ML 02-11 (Same as: l / 06:55: Duoneb) [place] Ipratropium 00 [place] 0.167 MG/ML Inhalant Solution [DuoNeb] Nitroglycer No Notes: Vinnie sae in 02-11 (Same l 06:55: as:Nitroqu [place] 00 ick, Nitrostat) "Do Not Crush" Sublingual tablet Acetaminoph No Notes: Do M emoria en 02-11 not exceed l 06:55: 4 gm/day. [place] 00 (Same as: Tylenol) Morphine No Notes: Memoria 02-11 (Same l 06:55: as:MORPhin [place] 00 e Sulfate) Acetaminoph No Notes: Vinnie sae en 325 MG / 02-11 (Same as: l Hydrocodone 06:55: [place] Alyssia nn Bitartrate 00 325/5) Do 5 MG Oral not exceed Tablet 4gm/day of acetaminop hen. Sodium No 1,000 mL, Memori a Chloride 02-11 Rate: 125 l 0.154 06:55: ml/hr, [place] MEQ/ML 00 Infuse Injectable over: 8 Solution hr, Route: IV, Dosing Weight 86.818 kg, Total Volume: 1,000, Start date: 02/11/17 1:55:00 CDT, Duration: 30 day, Stop date: 03/13/17 1:54:00 CDT Saline No Notes: Memoria Flush 0.9% 02-11 (Same as: l 06:55: BD [place] 00 Posiflush) Ondansetron No Notes: Vinnie sae 02-11 (Same as: l 06:55: Zofran) [place] 00 MEDICATION WASTE Product Size: 4 mg Product Wasted: ___ mg Hydralazine No Notes: Vinnie sae 02-11 (Same as: l 06:55: Apresoline [place] 00 ) Push over 5 minutes Albuterol No Notes: Memori a 0.833 MG/ML 02-11 (Same as: l / 06:55: Duoneb) [place] Ipratropium 00 [place] 0.167 MG/ML Inhalant Solution [DuoNeb] Nitroglycer No Notes: Vinnie sae in 02-11 (Same l 06:55: as:Nitroqu [place] 00 ick, Nitrostat) "Do Not Crush" Sublingual tablet Acetaminoph No Notes: Do M emoria en 02-11 not exceed l 06:55: 4 gm/day. [place] 00 (Same as: Tylenol) Morphine No Notes: Memoria 02-11 (Same l 06:55: as:MORPhin [place] 00 e Sulfate) Acetaminoph No Notes: Vinnie sae en 325 MG / 02-11 (Same as: l Hydrocodone 06:55: [place] Alyssia nn Bitartrate 00 325/5) Do 5 [...] sae 02-11 (Same as: l 06:55: Zofran) [place] 00 MEDICATION WASTE Product Size: 4 mg Product Wasted: ___ mg Hydralazine No Notes: Vinnie sae 02-11 (Same as: l 06:55: Apresoline [place] 00 ) Push over 5 minutes Albuterol No Notes: Memori a 0.833 MG/ML 02-11 (Same as: l / 06:55: Duoneb) [place] Ipratropium 00 [place] 0.167 MG/ML Inhalant Solution [DuoNeb] Nitroglycer No Notes: Vinnie sae in 02-11 (Same l 06:55: as:Nitroqu [place] 00 ick, Nitrostat) "Do Not Crush" Sublingual tablet Acetaminoph No Notes: Do M emoria en 02-11 not exceed l 06:55: 4 gm/day. [place] 00 (Same as: Tylenol) Morphine No Notes: Memoria 02-11 (Same l 06:55: as:MORPhin e Sulfate) Acetaminoph No Notes: Vinnie sae en 325 MG / 02-11 (Same as: l Hydrocodone 06:55: [place] Alyssia nn Bitartrate 00 325/5) Do 5 [...] Memoria 7-16 (Same as: l 06:07: Benadryl) [place] Benadryl No Notes: Memoria 7-16 (Same as: l 06:07: Benadryl) [place] Benadryl No Notes: Memoria 7-16 (Same as: l 06:07: Benadryl) [place] Benadryl No Notes: Memoria 7-16 (Same as: l 06:07: Benadryl) [place] 00 Benadryl No Notes: Memoria 7-16 (Same as: l 06:07: Benadryl) [place] 00 Reglan No Notes: Memoria 7-16 (Same as: l 06:06: Reglan) [place] 00 Reglan No Notes: Memoria 7-16 (Same as: l 06:06: Reglan) [place] 00 Reglan No Notes: Memoria 7-16 (Same as: l 06:06: Reglan) [place] 00 Reglan No Notes: Memoria 7-16 (Same as: l 06:06: Reglan) [place] 00 Reglan No Notes: Memoria 7-16 (Same as: l 06:06: Reglan) [place] 00 NS + KCL No Notes: Memoria [...] IV l 1000ml 06:00: - Do Not [place] (Premix) 00 Alter 1,000 mL WASTE: F/P - Sink; E - Municipal Trash Bin Saline No Notes: Memoria Flush 0.9% 02-11 (Same as: l 05:11: BD [place] 00 Posiflush) Sodium No 1,000 mL, Memori a Chloride -16 2,000 l 0.154 05:11: ml/hr, [place] MEQ/ML 00 Infuse Injectable Over: 30 Solution [...] 0.9% 02-11 (Same as: l 05:11: BD [place] 00 Posiflush) Sodium No 1,000 mL, Memori a Chloride 02-11 2,000 l 0.154 05:11: ml/hr, [place] MEQ/ML [...] Promethazin No 25 mg, Vinnie sae e 716 Route: IM, l 05:11: ONCE, Dosing Weight 86.818, kg, Priority: STAT, Start date: 02/11/17 0:11:00 CDT, Stop date: 02/11/17 0:11:00 CDT Saline No Notes: Memoria Flush 0.9% 02-11 (Same as: l 05:11: BD [place] 00 Posiflush) Sodium No 1,000 mL, Memori a Chloride 7-16 2,000 l 0.154 05:11: ml/hr, Thorp MEQ/ML 00 Infuse Injectable Over: 30 Solution minutes, Route: IV, ONCE, Priority: STAT, Dosing Weight 86.818 kg, Start date: 02/11/17 0:11:00 CDT, Duration: 1 doses or times, Stop date: 02/11/17 0:11:00 CDT GI cocktail No Notes: Vinnie sae 7-16 G.I. l 05:11: Cocktail = Thorp 00 antacid with simethicon e 22.5 mL - lidocaine viscous 7.5 mL Promethazin No 25 mg, Vinnie sae e 7-16 Route: IM, l 05:11: ONCE, Dosing Weight 86.818, kg, Priority: STAT, Start date: 02/11/17 0:11:00 CDT, Stop date: 02/11/17 0:11:00 CDT Saline No Notes: Memoria Flush 0.9% 7-16 (Same as: l 05:11: BD Posiflush) Sodium No 1,000 mL, Memori a Chloride 7-16 2,000 l 0.154 05:11: ml/hr, Santos MEQ/ML 00 Infuse Injectable Over: 30 Solution minutes, Route: IV, ONCE, Priority: STAT, Dosing Weight 86.818 kg, Start date: 02/11/17 0:11:00 CDT, Duration: 1 doses or times, Stop date: 02/11/17 0:11:00 CDT GI cocktail 0 No Notes: Vinnie sae 7-16 G.I. l 05:11: Cocktail = Thorp 00 antacid with simethicon e 22.5 mL [...] Chloride 7-16 2,000 l 0.154 05:11: ml/hr, MEQ/ML 00 Infuse Injectable Over: 30 Solution minutes, Route: IV, ONCE, Priority: STAT, Dosing Weight 86.818 kg, Start date: 02/11/17 0:11:00 CDT, Duration: 1 doses or times, Stop date: 02/11/17 0:11:00 CDT GI cocktail No Notes: Vinnie sae 7-16 G.I. l 05:11: Cocktail = antacid with simethicon e 22.5 mL - lidocaine viscous 7.5 mL Promethazin No 25 mg, Vinnie sae e 7-16 Route: IM, l 05:11: ONCE, Dosing Weight 86.818, kg, Priority: STAT, Start date: 02/11/17 0:11:00 CDT, Stop date: 02/11/17 0:11:00 CDT norgestimat Yes [id number] 1{tbl} Take 1 Tab Univers e-ethinyl 2-03 by mouth ity of estradiol 00:00: daily. [facility] 00 Medical 0.25-35 Branch mg-mcg per tablet norgestimat Yes [id number] 1{tbl} Take 1 Tab Univers e-ethinyl 2-03 by mouth ity of estradiol 00:00: daily. [place] ([facility]) Medical 0.25-35 Branch mg-mcg per tablet norgestimat Yes [id number] 1{tbl} Take 1 Tab Univers e-ethinyl 2-03 by mouth ity of estradiol 00:00: daily. [place] ([facility] 00 Medical 0.25-35 Branch mg-mcg per tablet norgestimat Yes [id number] 1{tbl} Take 1 Tab Univers e-ethinyl 2-03 by mouth ity of estradiol 00:00: daily. [place] [facility] Medical 0.25-35 Branch mg-mcg per tablet norgestimat Yes [id number] 1{tbl} Take 1 Tab Univers e-ethinyl 2-03 by mouth ity of estradiol 00:00: daily. [place] ([facility] 00 Medical 0.25-35 Branch mg-mcg per tablet norgestimat Yes [id number] 1{tbl} Take 1 Tab Univers e-ethinyl 2-03 by mouth ity of estradiol 00:00: daily. [place] ([facility] 00 Medical 0.25-35 Branch mg-mcg per tablet norgestimat Yes [id number] 1{tbl} Take 1 Tab Univers e-ethinyl 2-03 by mouth ity of estradiol 00:00: daily. [place] ([facility] 00 Medical 0.25-35 Branch mg-mcg per tablet norgestimat Yes [id number] 1{tbl} Take 1 Tab Univers e-ethinyl 2-03 by mouth ity of estradiol 00:00: daily. [place] ([facility] 00 Medical 0.25-35 Branch mg-mcg per tablet norgestimat 2023- No [id number] 1{tbl} Take 1 Tab Univers e-ethinyl 2-03 - by mouth ity o f estradiol 00:00: 00:00 daily. [place] ([facility]) 00 :00 Medical 0.25-35 Branch mg-mcg per tablet Vital Signs Vital Name Observation Time Observation Value Comments Source Systolic blood 2023-03-19 20:11:00 129 mm[Hg] Univer sity of [facility] Diastolic blood 2023-03-19 20:11:00 79 mm[Hg] [facility] Heart rate 2023-03-19 20:11:00 76 /min [facility] Body temperature 2023-03-19 20:11:00 37.39 Melissa [facility] saturation in 2023-03-19 20:11:00 100 /min [facility] Arterial blood by [facility] Pulse oximetry [place] Body height 2023-03-19 12:08:00 177.8 cm [facility] Body weight 2023-03-19 12:08:00 113.989 kg [facility] BMI 2023-03-19 12:08:00 36.06 kg/m2 [facility] Respiratory rate 2023-03-19 11:15:00 15 /min Univ ersity of [facility] Systolic blood 2022-04-25 18:20:00 124 mm[Hg] Univer sity of pressure [facility] Diastolic blood 2022-04-25 18:20:00 84 mm[Hg] Unive rsity of pressure [facility] Heart rate 2022-04-25 18:20:00 89 /min Universi ty of [facility] Oxygen saturation in 2022-04-25 18:20:00 98 /min [facility] Arterial blood by [facility] Pulse oximetry Branch Body height 2022-04-25 18:19:00 180.3 cm Universi ty of [facility] Body weight 2022-04-25 18:19:00 92.806 kg Universi ty of [facility] BMI 2022-04-25 18:19:00 28.54 kg/m2 Universi ty of [facility] Body height 2022-03-24 14:35:00 180.3 cm Universi ty of [facility] Body weight 2022-03-24 14:35:00 95.255 kg Universi ty of [facility] BMI 2022-03-24 14:35:00 29.29 kg/m2 Universi ty of [facility] Systolic (mm Hg) 2017-02-12 19:08:00 Vinnie rial Santos Diastolic (mm Hg) 2017-02-12 19:08:00 Mem orial Santos Respitory Rate 2017-02-12 19:08:00 Memori al [facility] Heart Rate 2017-02-12 19:08:00 [facility] Temperature Oral (F) 2017-02-12 19:08:00 98.4 F [facility] Respitory Rate 2017-02-12 15:27:00 Memori al [facility] Systolic (mm Hg) 2017-02-12 15:27:00 Vinnie rial Thor[facility] Diastolic (mm Hg) 2017-02-12 15:27:00 Mem orial [facility] Temperature Oral (F) 2017-02-12 15:27:00 98.2 F [facility] Heart Rate 2017-02-12 15:27:00 [facility] Temperature Oral (F) 2017-02-12 12:18:00 98.2 F [facility] Heart Rate 2017-02-12 12:18:00 [facility] Systolic (mm Hg) 2017-02-12 12:18:00 Vinnie Graham Diastolic (mm Hg) 2017-02-12 12:18:00 Marcela Graham Respitory Rate 2017-02-12 12:18:00 Adebayo Ann Weight 2017-02-11 13:25:00 Cee Graham Height 2017-02-11 08:10:00 177.8 cm [facility] BMI Calculated 2017-02-11 08:10:00 Adebayo Ann Weight 2017-02-11 08:10:00 [facility] Weight 2017-02-11 04:19:00 [facility] Procedures Procedure Date / Time Performing Clinician Source Performed PROTHROMBIN TIME / INR 2023-03-19 21:58:00 Anisa Viramontes [facility] ACTIVATED PARTIAL 2023-03-19 21:58:00 Anisa Viramontes [facility] FIBRINOGEN 2023-03-19 21:58:00 Anisa Viramontes [facility] BASIC METABOLIC PANEL 2023-03-19 16:13:00 Anisa Viramontes [facility] (NA, K, CL, CO2, Medical Branch GLUCOSE, BUN, CREATININE, CA) PROTHROMBIN TIME / INR 2023-03-19 16:13:00 Anisa Viramontes [facility] ACTIVATED PARTIAL 2023-03-19 16:13:00 Anisa Viramontes [facility] FIBRINOGEN 2023-03-19 16:13:00 Anisa Viramontes [facility] LIPASE 2023-03-19 10:06:00 Chad Fofana [facility] COMP. METABOLIC PANEL 2023-03-19 10:06:00 Chad Fofana [facility] ([id number]) [facility] PROTHROMBIN TIME / INR 2023-03-19 10:06:00 Chad Fofana [facility] ACTIVATED PARTIAL 2023-03-19 10:06:[address] [facility] FIBRINOGEN 2023-03-19 10:06:00 Anisa Viramontes [facility] HB ABO GROUPING 2023-03-19 10:06:00 BrigidoChad Jessy Univer sity [facility] EXTERNAL PROVIDER 2022-05-16 05:01:00 Doctor Unassigned, No Univ [facility] RECORDS Name [facility] REFERRAL- 2022-04-06 05:01:00 Doctor Unassigned, No [facility] REQUEST/RESPONSE Name [facility] Colonoscopy [facility] Diagnostic endoscopy [facility] Extraction of wisdom [facility] tooth Encounters Start End Encounter Admission Attending Care Care Encounter Source Date/Time Date/Time Type Type Clinicians Facility Department ID 2021-05-30 Emergency [facility] [id number] Univers 16:29:02 ity [facility] 2023-03-19 2023-03-19 Outpatient T BRIGIDO [facility] STR [id number] Univers 05:04:00 18:00:00 CHAD tapia [facility] 2023-03-19 2023-03-19 Emergency RHONDA Fofana [id number] Univers 05:04:00 18:00:00 Chad SIMON 350.1.13.10 it y of [facility] [place] [id number] [facility] 0[address] [place] 2022-12-01 2022-12-01 Outpatient [facility] [id number] Dino 10:37:32 10:37:32 [id number] [place] 2022-11-10 2022-11-10 Outpatient [facility] [id number] Dino 09:33:52 09:33:52 [id number] F [place] 2022-05-16 2022-05-16 Orders Doctor WRIGHT 1.2.840.114 [id number] Univers 00:00:00 00:00:00 Only UnassignedAURORA 350.1.13.10 ity of [place] [facility] 4.2.7.2.686 Remy as [id number] [facility] 009 [place] 2022-04-25 2022-04-25 Outpatient Angelika WILCOX [facility] [id number] Univers 13:00:00 13:53:03 FABIO tapia [facility] 2022-04-25 2022-04-25 Office Jeri [facility] 1.2.840.114 [id number] Univers 13:00:00 13:53:03 Visit Fabio HEALTH 350.1.13.10 it y of [place] 4.2.7.2.686 Remy as YOSVANY?BLEA [id number] Fl serene GARRISON [address] [facility] OFFICE [facility] 2022-04-24 2022-04-24 [facility]phone [facility] 1.2.840.114 [id number] Univers 00:00:00 00:00:00 [facility] HEALTH 350.1.13.10 it y of [place] 4.2.7.2.686 Remy as YOSVANY?BLEA [id number] Fl sosa[address] OFFICE [facility] 2022-04-06 2022-04-06 Orders Doctor KYLE 1.2.840.114 [id number] Univers 00:00:00 00:00:00 Only Unassigned, [place]URORA 350.1.13.10 ity of [place] [facility] 4.2.7.2.686 Remy as [id number] [address] 2022-03-31 2022-03-31 [facility] [id number] Univers 08:45:00 08:45:00 FABIO ity of [facility] 2022-03-31 2022-03-31 [facility]phone [facility] [id number] [facility] 00:00:00 00:00:00 Fabio HEALTH 350.1.13.10 it y of [place] 4.2.7.2.686 Remy as YOSVANY?BLEA [id number] Fl serene GARRISON [address] [place] [address] OFFICE [facility] 2022-03-24 2022-03-24 Outpatient [facility] [id number] Univers 09:15:00 10:23:53 FABIO ity of [facility] 2022-03-24 2022-03-24 Office [facility] 1.2.840.114 [id number] Univers 09:15:00 09:45:00 Visit [facility] HEALTH 350.1.13.10 it y of [place] 4.2.7.2.686 Remy as YOSVANY?BLEA [id number] Fl serene CO[address] OFFICE [facility] 2022-03-24 2022-03-24 Outpatient R JERI [facility] [id number] Univers 09:15:00 09:15:00 FABIO ity of [facility] 2022-03-24 2022-03-24 Munir Wilcox [facility] 1.2.840.114 [id number] Univers 00:00:00 00:00:00 (Out) [facility] 350.1.13.10 it y of [place] 4.2.7.2.686 Remy as YOSVANY?BLEA [id number] Fl dical MELI [address] [place] [address] MEDICAL OFFICE [facility] 2022-03-22 2022-03-22 Emergency X JEZ, K [facility] ERT [id number] Univers 09:19:00 10:54:00 ity of [facility] 2022-03-22 2022-03-22 Emergency Jez K [facility] 1.2.840.114 [id number] Univers 09:19:00 10:54:00 Sandie [place] 350.1.13.10 i ty of [place] 4.2.7.2.686 [place] [facility] [id number] [place] 873234 [place] 2022-03-22 2022-03-22 Emergency X JEZ, K [facility] ERT [id number] Univers 09:19:00 10:54:00 ity of [facility] 2021-08-23 2021-08-23 Orders Doctor KYLE 1.2.840.114 [id number] Univers 00:00:00 00:00:00 Only Unassigned, [place] 350.1.13.10 ity of [place] HOSPITAL 4.2.7.2.686 Remy as [id number] [address] 2021-03-17 2021-03-17 Orders Doctor KYLE 1.2.840.114 [id number] Univers 00:00:00 00:00:00 Only Unassigned, [place] 350.1.13.10 ity of [place] [facility] 4.2.7.2.686 Remy as [id number] [address] 2021-03-16 2021-03-16 Emergency [facility] 1.2.840.114 [id number] Univers 14:30:00 17:59:00 Dorothea [place] 350.1.13.10 i ty of [place]2.7.2.[place] [id number] [facility] 084 Branch 2021-03-16 2021-03-16 Orders Doctor KYLE 1.2.840.114 [id number] Univers 00:00:00 00:00:00 Only Unassigned, [place] 350.1.13.10 ity of [place] HOSPITAL 4.2.7.2.686 Remy as [id number] [facility] 009 Branch 2020-12-14 2020-12-14 Case Morenita Corona 1.2.840.114 [id number] Univers 00:00:00 00:00:00 Management Kianna David 350.1.13.10 ity of [place]2.7.2.[place] [phone] [facility] 086 Branch 2020-10-19 2020-10-19 Patient Ford [facility] 1.2.840.114 [id number] Univers 00:00:00 00:00:00 Outreach [facility] 350.1.13.10 i ty of [facility] [place]2.7.2.[place] [facility] [id number] Fl dicak 388 Branch 2019-11-11 2019-11-11 Telephone KYLE Goyal [id number] Univers 00:00:00 00:00:00 Lucero SIMON 350.1.13.10 it y of HOSPITAL 4.2.7.2.686 Remy as [phone] [facility] 019 Branch 2019-11-11 2019-11-11 Telephone KYLE Goyal [id number] 00:00:00 00:00:00 Lucero SIMON 350.1.13.10 HOSPITAL 4.2.7.2.686 [id number] 2019-11-10 2019-11-10 Urgent Pob1, Acute Care Clinic [facility] 1. 2.840.114 [id number] Univers 15:56:53 16:28:48 Care Destiney Tellez [facility] 350.1.13.10 ity of [place] 4.2.7.2.686 Remy as Professio [id number] Fl dical nal [address] 2019-11-10 2019-11-10 Urgent Pob1, Acute [facility] 1.2.840.114 [id number] 15:56:53 16:28:48 [facility] 350.1.13.10 [place] 4.2.7.2.686 Professio [id number] nal [address] 2019-11-10 2019-11-10 Outpatient Angelika WILLI [facility] [id number] Univers 16:00:00 16:00:00 DESTINEYOFELIA tapia [facility] 2018-11-25 2018-11-25 Outpatient [facility] [id number] Common 16:18:00 16:18:00 [facility] 2018-05-14 2018-05-14 Outpatient [facility] [id number] Common 11:22:00 11:22:00 [facility] 2018-05-13 2018-05-13 Outpatient [facility] [id number] Common 14:59:00 14:59:00 [facility] 2018-05-13 2018-05-13 Outpatient [facility] [id number] Common 14:30:00 14:30:00 [facility] 2018-02-13 2018-02-13 Outpatient [facility] [id number] Common 13:15:00 13:15:00 [facility] Care [facility] I [facility] 2017-02-11 2017-02[id number] Memoria 04:15:00 23:05:00 n angelika Graham 00 l [place] Alyssia 2017-02-11 2017-02-12 Observatio nullFlavo [facility] [id number] Memoria 04:15:00 23:05:00 n angelika Graham 00 l [place] Alyssia 2017-02-10 2017-02-12 Outpatient RONNIE Castano [facility] [id number] 23:15:00 18:05:00 [place] 00 Results Test Description Test Time Test Comments Results Result Comments Source Prothrombin Time / INR 2023-03-19 22:29:07 Test Item Value Reference Range Interpretation Comme nts PROTIME PATIENT (test code = 9.5 See_Comment L [Automated message] The system 5964-2) which generated this result transmitted ref erence range: 10.1 - 12.6 Sec onds. The reference range was not used to interpret this result as normal/abnormal . INR (test code = 6301-6) 0.8 Nor mal INR <1.1; Warfarin Therapeutic ran ge 2.0 to 3.0 or 2.5 to 3.5, dep ending upon the indications. Lab Interpretation (test code Abnormal = 56741-3) [facility] 22:29:01 Test Item Value Reference Range Interpretation Comments Fibrinogen (test code = 3373266217) 350 mg/dL 167-453 Lab Interpretation (test code = Normal 56388-6) [facility] 22:23:36 Test Item Value Reference Range Interpretation Comments APTT Patient (test code = 30 See_Comment [ Automated message] 3173-2) The system [employer] h generated this result transmitted ref erence range: 26 - 36 Seconds. The re ference range was not u sed to interpret this result as normal/abnor mal. Lab Interpretation (test Normal code = 16744-7) [facility] 10:59:03 Test Item Value Reference Range Interpretation Comments Fibrinogen (test code = 2578531248) 277 mg/dL 167-453 Lab Interpretation (test code = Normal 43312-9) [facility] Time / [id number] 10:30:41 Test Item Value Reference Range Interpretation Comments PROTIME PATIENT (test 11.2 See_Comment [Auto mated message] code = 5964-2) The system [employer] generated this result transmitted ref erence range: 10.1 - 1 2.6 Seconds. The re ference range was not u sed to interpret this result as normal/abnor mal. INR (test code = 6301-6) 1.0 Nor mal INR <1.1; Warfarin Therap eutic range 2.0 to 3. 0 or 2.5 to 3.5, dep ending upon the indica tions. Lab Interpretation (test Normal code = 03029-2) [facility] 10:30:41 Test Item Value Reference Range Interpretation Comments APTT Patient (test code = 29 See_Comment [ Automated message] 6793-2) The system [employer] generated this result transmitted ref erence range: 26 - 36 Seconds. The re ference range was not u sed to interpret this result as normal/abnor mal. Lab Interpretation (test Normal code = 03357-7) [facility] 10:30:01 Test Item Value Reference Range Interpretation Comments LIPASE (test code = 9012459129) 27 U/L 0-220 Lab Interpretation (test code = Normal 99680-9) [facility] 10:30:00 Test Item Value Reference Range Interpretation Comments NA (test code = 139 mmol/L 135-145 5923799793) K (test code = 4.1 mmol/L 3.5-5.0 0471009231) CL (test code = 105 mmol/L 98-108 3524738621) CO2 TOTAL (test code = 22 mmol/L 23-31 L 1079145316) AGAP (test code = 12 2-16 7929350783) BUN (test code = 12 mg/dL 7-23 2672084194) GLUCOSE (test code = 88 mg/dL 70-110 4239701916) CREATININE (test code = 0.75 mg/dL 0.50-1.04 6442309102) TOTAL BILI (test code = 0.5 mg/dL 0.1-1.0 8305981668) CALCIUM (test code = 8.8 mg/dL 8.6-10.6 0668245136) T PROTEIN (test code = 7.3 g/dL 6.3-8.2 5957063447) ALBUMIN (test code = 3.8 g/dL 3.5-5.0 1725620655) ALK PHOS (test code = 48 U/L 34-122 9405398147) ALTv (test code = 24 U/L 5-35 1742-6) AST(SGOT) (test code = 25 U/L 13-40 0157947356) eGFR (test code = 92.7 mL/min/1.73m2 6458167840) CHELLY (test code = CHELLY) Association of Glomerular Filtration Rate (GFR) and Staging of Kidney Disease* + --+ --+ ------+| GFR (mL/min/1.73 m2) ?| With Kidney Damage ?| ?Without Kidney Damage+ --------+ --------+ +| ?>90 ?| ?Stage one ?| ? Normal ?+ ---+ ---+ -------+| ?60-89 ?| ?Stage two ?| ? Decreased GFR ? + --+ --+ ------+| ?30-59 ?| ?Stage three ?| ? Stage three ? + --+ --+ ------+| ?15-29 ?| ?Stage four ? | ? Stage four ?+ ---+ ---+ -------+| ?<15 (or dialysis) ? ?| ?Stage five ? | ? Stage five ?+ ---+ ---+ -------+ *Each stage assumes the associated GFR level has been in effect for at least three months. ?Stages 1 to 5, with or without kidney disease, indicate chronic kidney disease. Notes: Determination of stages one and two (with eGFR >59mL/min/1.73 m2) requires estimation of kidney damage for at least three months as defined by structural or functional abnormalities of the kidney, manifested by either:Pathological abnormalities or Markers of kidney damage (including abnormalities in the composition of the blood or urine or abnormalities in imaging tests). Lab Interpretation Abnormal (test code = 38834-1) [facility] Center[facility] Screen - The Type and Screen expires at midnight on the 3rd day after it was drawn. A current Type and Screen is required when RBCs are requested. For all other blood products, a Type and Scree n performed during the current hospitalizati...2023-03-19 10:13:00 Test Item Value Reference Range Interpretation Comments ABO & RH (test code = 20) A POSITIVE IAT (test code = 1185) Negative [facility] CenterCHEM [id number] 15:50:00 Test Item Value Reference Range Interpretation Comments eGFR (test code = eGFR) 123 [facility] [id number] 15:50:00 Test Item Value Reference Range Interpretation Comments Globulin (test code = Globulin) 4.0 2.7-4.2 [facility]2017-07-17 15:50:00 Test Item Value Reference Range Interpretation Comments A/G Ratio (test code = A/G Ratio) 0.8 0.7-1.6 [facility]2017-07-17 15:50:00 Test Item Value Reference Range Interpretation Comments B/C Ratio (test code = B/C Ratio) 6 6-25 [facility]2017-07-17 15:50:00 Test Item Value Reference Range Interpretation Comments AGAP (test code = AGAP) 12.6 10.0-20.0 [facility]2017-07-17 15:50:00 Test Item Value Reference Range Interpretation Comments Alk Phos (test code = Alk Phos) 58 39-136 [facility]2017-07-17 15:50:00 Test Item Value Reference Range Interpretation Comments Bili Total (test code = Bili Total) 0.5 0.2-1.3 [facility]2017-07-17 15:50:00 Test Item Value Reference Range Interpretation Comments AST (test code = AST) 11 <=37 [facility]2017-07-17 15:50:00 Test Item Value Reference Range Interpretation Comments ALT (test code = ALT) 27 <=65 [facility]2017-07-17 15:50:00 Test Item Value Reference Range Interpretation Comments Total Protein (test code = Total 7.4 6.4-8.4 Protein) [facility]2017-07-17 15:50:00 Test Item Value Reference Range Interpretation Comments Albumin Lvl (test code = Albumin Lvl) 3.4 3.5-5.0 [facility]2017-07-17 15:50:00 Test Item Value Reference Range Interpretation Comments Calcium Lvl (test code = Calcium Lvl) 8.7 8.5-10.5 [facility]2017-07-17 15:50:00 Test Item Value Reference Range Interpretation Comments CO2 (test code = CO2) 25 24-32 [facility]2017-07-17 15:50:00 Test Item Value Reference Range Interpretation Comments Chloride Lvl (test code = Chloride Lvl) 104 95-109 [facility]2017-07-17 15:50:00 Test Item Value Reference Range Interpretation Comments Sodium Lvl (test code = Sodium Lvl) 138 135-145 [facility]2017-07-17 15:50:00 Test Item Value Reference Range Interpretation Comments Potassium Lvl (test code = Potassium 3.6 3.5-5.1 Lvl) [facility]2017-07-17 15:50:00 Test Item Value Reference Range Interpretation Comments Glucose Lvl (test code = Glucose Lvl) 82 70-99 [facility]2017-07-17 15:50:00 Test Item Value Reference Range Interpretation Comments Creatinine Lvl (test code = Creatinine 0.71 0.50-1.40 Lvl) [facility]2017-07-17 15:50:00 Test Item Value Reference Range Interpretation Comments BUN (test code = BUN) 4 7-22 [facility]2017-07-17 15:50:00 Test Item Value Reference Range Interpretation Comments Phosphorus (test code = Phosphorus) 3.0 2.5-4.5 [facility]2017-07-17 15:50:00 Test Item Value Reference Range Interpretation Comments Magnesium Lvl (test code = Magnesium 2.3 1.8-2.4 Lvl) [facility]SzjrsfnWPUZNUKTEP7361-21-37 15:50:00 Test Item Value Reference Range Interpretation Comments Eosinophils # (test code = Eosinophils 0.1 <=0.5 #) [facility] CenterAalbcqtXQEHDMIAVD5101-97-44 15:50:00 Test Item Value Reference Range Interpretation Comments Basophils # (test code = Basophils #) 0.0 <=0.2 [place] 785517-07-17 15:50:00 Test Item Value Reference Range Interpretation Comments Eosinophils (test code = Eosinophils) 0.7 <=4.0 [facility] CenterTkojstfALBOMAEBDM7065-12-26 15:50:00 Test Item Value Reference Range Interpretation Comments Basophils (test code = Basophils) 0.5 <=1.0 [place] 785517-07-17 15:50:00 Test Item Value Reference Range Interpretation Comments RBC Morph (test code = Normal (02/12/17 10:50 RBC Morph) AM) [facility] CenterKhjzbdoDXUIBVASQB2352-53-76 15:50:00 Test Item Value Reference Range Interpretation Comments Plt Morph (test code = Normal (02/12/17 10:50 Plt Morph) AM) [facility] CenterGiomypsKUCBBVONZX0374-58-94 15:50:00 Test Item Value Reference Range Interpretation Comments Segs (test code = Segs) 64.1 45.0-75.0 [facility] CenterEdpwhbpBLNTYPESWJ0163-34-59 15:50:00 Test Item Value Reference Range Interpretation Comments Lymphocytes (test code = Lymphocytes) 25.2 20.0-40.0 [facility] CenterFcpmoggOLEUXSWQST7922-31-22 15:50:00 Test Item Value Reference Range Interpretation Comments Monocytes (test code = Monocytes) 9.5 2.0-12.0 [facility] CenterOjyugynXYVQTNAQUV7113-89-11 15:50:00 Test Item Value Reference Range Interpretation Comments Lymphocytes # (test code = Lymphocytes 2.3 1.0-5.5 #) [facility] CenterLmlehoxDMUJKPGSJF0675-67-47 15:50:00 Test Item Value Reference Range Interpretation Comments Monocytes # (test code = Monocytes #) 0.9 <=0.8 [facility] CenterJuajiknDUEHYOOHLN0110-62-50 15:50:00 Test Item Value Reference Range Interpretation Comments Segs-Bands # (test code = Segs-Bands #) 5.8 1.5-8.1 [facility] CenterKdqfsfvLIREDYXTBN5955-03-52 15:50:00 Test Item Value Reference Range Interpretation Comments Hct (test code = Hct) 40.9 36.0-48.0 [facility] CenterSdqscqnEDJHYEQTQR8298-07-59 15:50:00 Test Item Value Reference Range Interpretation Comments MCV (test code = MCV) 86.8 80.0-98.0 [facility] CenterZfqcsvfBQAXUIVGYQ5268-92-90 15:50:00 Test Item Value Reference Range Interpretation Comments MCH (test code = MCH) 28.0 pg 27.0-31.0 [facility] CenterUlllbthBASHBMTKQI6477-63-69 15:50:00 Test Item Value Reference Range Interpretation Comments Hgb (test code = Hgb) 13.2 12.0-16.0 [facility] CenterYpcdavqULQCPLGARQ7190-53-63 15:50:00 Test Item Value Reference Range Interpretation Comments WBC (test code = WBC) 9.0 3.7-10.4 [facility] CenterCbzpnbeMEORBUSDAA0332-64-49 15:50:00 Test Item Value Reference Range Interpretation Comments RBC (test code = RBC) 4.71 4.20-5.40 [facility] CenterEzqifheLWWALSHOWU2373-04-04 15:50:00 Test Item Value Reference Range Interpretation Comments RDW (test code = RDW) 13.6 11.5-14.5 [facility] CenterPahmnjsYEELHGLLYZ4165-82-89 15:50:00 Test Item Value Reference Range Interpretation Comments Platelet (test code = Platelet) 389 133-450 [facility] CenterWmhuwywUJXDFMBZID2338-95-22 15:50:00 Test Item Value Reference Range Interpretation Comments MPV (test code = MPV) 8.4 7.4-10.4 [facility] CenterHztrzieZKUKBWVZGJ8945-69-94 15:50:00 Test Item Value Reference Range Interpretation Comments MCHC (test code = MCHC) 32.3 32.0-36.0 [facility]2017-07-17 15:50:00 Test Item Value Reference Range Interpretation Comments eGFR (test code = eGFR) 123 [facility]2017-07-17 15:50:00 Test Item Value Reference Range Interpretation Comments Globulin (test code = Globulin) 4.0 2.7-4.2 [facility]2017-07-17 15:50:00 Test Item Value Reference Range Interpretation Comments A/G Ratio (test code = A/G Ratio) 0.8 0.7-1.6 [facility]2017-07-17 15:50:00 Test Item Value Reference Range Interpretation Comments B/C Ratio (test code = B/C Ratio) 6 6-25 [facility]2017-07-17 15:50:00 Test Item Value Reference Range Interpretation Comments AGAP (test code = AGAP) 12.6 10.0-20.0 [facility]2017-07-17 15:50:00 Test Item Value Reference Range Interpretation Comments Alk Phos (test code = Alk Phos) 58 39-136 [facility]2017-07-17 15:50:00 Test Item Value Reference Range Interpretation Comments Bili Total (test code = Bili Total) 0.5 0.2-1.3 [facility]2017-07-17 15:50:00 Test Item Value Reference Range Interpretation Comments AST (test code = AST) 11 See_Comment [Auto mated message] The system which ge nerated this result transmit rohit reference range : <=37. The reference range was not used to interpr et this result as flor l/abnormal. [facility]2017-07-17 15:50:00 Test Item Value Reference Range Interpretation Comments ALT (test code = ALT) 27 See_Comment [Auto mated message] The system which ge nerated this result transmit rohit reference range : <=65. The reference range was not used to interpr et this result as flor l/abnormal. [facility]2017-07-17 15:50:00 Test Item Value Reference Range Interpretation Comments Total Protein (test code = Total 7.4 6.4-8.4 Protein) [facility]2017-07-17 15:50:00 Test Item Value Reference Range Interpretation Comments Albumin Lvl (test code = Albumin Lvl) 3.4 3.5-5.0 [facility]2017-07-17 15:50:00 Test Item Value Reference Range Interpretation Comments Calcium Lvl (test code = Calcium Lvl) 8.7 8.5-10.5 [place] 048887-07-17 15:50:00 Test Item Value Reference Range Interpretation Comments CO2 (test code = CO2) 25 24-32 [facility]2017-07-17 15:50:00 Test Item Value Reference Range Interpretation Comments Chloride Lvl (test code = Chloride Lvl) 104 95-109 [facility]2017-07-17 15:50:00 Test Item Value Reference Range Interpretation Comments Sodium Lvl (test code = Sodium Lvl) 138 135-145 [facility]2017-07-17 15:50:00 Test Item Value Reference Range Interpretation Comments Potassium Lvl (test code = Potassium 3.6 3.5-5.1 Lvl) [facility]2017-07-17 15:50:00 Test Item Value Reference Range Interpretation Comments Glucose Lvl (test code = Glucose Lvl) 82 70-99 [facility]2017-07-17 15:50:00 Test Item Value Reference Range Interpretation Comments Creatinine Lvl (test code = Creatinine 0.71 0.50-1.40 Lvl) [facility]2017-07-17 15:50:00 Test Item Value Reference Range Interpretation Comments BUN (test code = BUN) 4 7-22 [facility]2017-07-17 15:50:00 Test Item Value Reference Range Interpretation Comments Phosphorus (test code = Phosphorus) 3.0 2.5-4.5 [facility]2017-07-17 15:50:00 Test Item Value Reference Range Interpretation Comments Magnesium Lvl (test code = Magnesium 2.3 1.8-2.4 Lvl) [facility] CenterZygwzifGCTNZZTXKH2621-10-85 15:50:00 Test Item Value Reference Range Interpretation Comments Eosinophils # (test code 0.1 See_Comment [A utomated message] The = Eosinophils #) system whic h generated this result tra nsmitted reference range : <=0.5. The reference r nikki was not used to int erpret this result as normal/abnormal . [facility] CenterTwbonktESNVHSYYTD5011-07-86 15:50:00 Test Item Value Reference Range Interpretation Comments Basophils # (test code 0.0 See_Comment [Aut omated message] The = Basophils #) system which generated this result tra nsmitted reference range : <=0.2. The reference r nikki was not used to int erpret this result as normal/abnormal . [facility] CenterIucluccKRYDXGDRNH9164-31-30 15:50:00 Test Item Value Reference Range Interpretation Comments Eosinophils (test code = 0.7 See_Comment [A utomated message] The Eosinophils) system which ge nerated this result tra nsmitted reference range : <=4.0. The reference r nikki was not used to int erpret this result as normal/abnormal . [facility] CenterZkgvsruHCOVZCUPQX7076-04-99 15:50:00 Test Item Value Reference Range Interpretation Comments Basophils (test code = 0.5 See_Comment [Aut omated message] The Basophils) system which ge nerated this result tra nsmitted reference range : <=1.0. The reference r nikki was not used to int erpret this result as normal/abnormal . [facility] CenterEfcgzvvUDOQELQDPV2082-78-95 15:50:00 Test Item Value Reference Range Interpretation Comments RBC Morph (test code = Normal (02/12/17 10:50 RBC Morph) AM) [facility] CenterXytbxayMHEILQGVBE2154-61-49 15:50:00 Test Item Value Reference Range Interpretation Comments Plt Morph (test code = Normal (02/12/17 10:50 Plt Morph) AM) [facility] CenterPllbreeCBPKOKISXQ6607-29-22 15:50:00 Test Item Value Reference Range Interpretation Comments Segs (test code = Segs) 64.1 45.0-75.0 [place] 785517-07-17 15:50:00 Test Item Value Reference Range Interpretation Comments Lymphocytes (test code = Lymphocytes) 25.2 20.0-40.0 [facility] CenterUkfhcigJGHAIYVFGF0782-64-04 15:50:00 Test Item Value Reference Range Interpretation Comments Monocytes (test code = Monocytes) 9.5 2.0-12.0 [facility] CenterIryblgzBRQWLQJVBX3242-25-34 15:50:00 Test Item Value Reference Range Interpretation Comments Lymphocytes # (test code = Lymphocytes 2.3 1.0-5.5 #) [facility] CenterZbgkqivGWKVVNLUBO6399-67-85 15:50:00 Test Item Value Reference Range Interpretation Comments Monocytes # (test code 0.9 See_Comment [Aut omated message] The = Monocytes #) system which generated this result tra nsmitted reference range : <=0.8. The reference r nikki was not used to int erpret this result as normal/abnormal . [facility] CenterMdpvejsLIXGXOFKDK2763-31-86 15:50:00 Test Item Value Reference Range Interpretation Comments Segs-Bands # (test code = Segs-Bands #) 5.8 1.5-8.1 [facility] CenterUlvdeicOLAZPIVSNG4099-28-77 15:50:00 Test Item Value Reference Range Interpretation Comments Hct (test code = Hct) 40.9 36.0-48.0 [facility] CenterCrnsqmhCSVCAZVJIA6502-43-91 15:50:00 Test Item Value Reference Range Interpretation Comments MCV (test code = MCV) 86.8 80.0-98.0 [facility] CenterSaqptchODJQRYWIHE1599-99-29 15:50:00 Test Item Value Reference Range Interpretation Comments MCH (test code = MCH) 28.0 pg 27.0-31.0 [facility] CenterYmjltixTWHSKSFIOV8421-69-99 15:50:00 Test Item Value Reference Range Interpretation Comments Hgb (test code = Hgb) 13.2 12.0-16.0 [facility] CenterThbimuqTCFKVYTCIW6794-06-39 15:50:00 Test Item Value Reference Range Interpretation Comments WBC (test code = WBC) 9.0 3.7-10.4 [facility] CenterGojjlbgEFDRWCRCJP3488-95-37 15:50:00 Test Item Value Reference Range Interpretation Comments RBC (test code = RBC) 4.71 4.20-5.40 [facility] CenterJercglyFXTKDVGEWX2611-34-87 15:50:00 Test Item Value Reference Range Interpretation Comments RDW (test code = RDW) 13.6 11.5-14.5 [facility] CenterNhrzrtiSOCJAHSPBC0573-86-57 15:50:00 Test Item Value Reference Range Interpretation Comments Platelet (test code = Platelet) 389 133-450 [facility] CenterFnvmujxIVCYCKSFLX3582-83-47 15:50:00 Test Item Value Reference Range Interpretation Comments MPV (test code = MPV) 8.4 7.4-10.4 [facility] CenterVbzktwmEMHNLYYBNL8191-07-33 15:50:00 Test Item Value Reference Range Interpretation Comments MCHC (test code = MCHC) 32.3 32.0-36.0 [facility]2017-07-17 15:50:00 Test Item Value Reference Range Interpretation Comments eGFR (test code = eGFR) 123 [facility]2017-07-17 15:50:00 Test Item Value Reference Range Interpretation Comments Globulin (test code = Globulin) 4.0 2.7-4.2 [facility]2017-07-17 15:50:00 Test Item Value Reference Range Interpretation Comments A/G Ratio (test code = A/G Ratio) 0.8 0.7-1.6 [facility]2017-07-17 15:50:00 Test Item Value Reference Range Interpretation Comments B/C Ratio (test code = B/C Ratio) 6 6-25 [facility]2017-07-17 15:50:00 Test Item Value Reference Range Interpretation Comments AGAP (test code = AGAP) 12.6 10.0-20.0 [facility]2017-07-17 15:50:00 Test Item Value Reference Range Interpretation Comments Alk Phos (test code = Alk Phos) 58 39-136 [facility]2017-07-17 15:50:00 Test Item Value Reference Range Interpretation Comments Bili Total (test code = Bili Total) 0.5 0.2-1.3 [facility]2017-07-17 15:50:00 Test Item Value Reference Range Interpretation Comments AST (test code = AST) 11 See_Comment [Auto mated message] The system which ge nerated this result transmit rohit reference range : <=37. The reference range was not used to interpr et this result as flor l/abnormal. [facility]2017-07-17 15:50:00 Test Item Value Reference Range Interpretation Comments ALT (test code = ALT) 27 See_Comment [Auto mated message] The system which ge nerated this result transmit rohit reference range : <=65. The reference range was not used to interpr et this result as flor l/abnormal. [facility]2017-07-17 15:50:00 Test Item Value Reference Range Interpretation Comments Total Protein (test code = Total 7.4 6.4-8.4 Protein) [place] 048887-07-17 15:50:00 Test Item Value Reference Range Interpretation Comments Albumin Lvl (test code = Albumin Lvl) 3.4 3.5-5.0 [facility]2017-07-17 15:50:00 Test Item Value Reference Range Interpretation Comments Calcium Lvl (test code = Calcium Lvl) 8.7 8.5-10.5 [facility]2017-07-17 15:50:00 Test Item Value Reference Range Interpretation Comments CO2 (test code = CO2) 25 24-32 [facility]2017-07-17 15:50:00 Test Item Value Reference Range Interpretation Comments Chloride Lvl (test code = Chloride Lvl) 104 95-109 [facility]2017-07-17 15:50:00 Test Item Value Reference Range Interpretation Comments Sodium Lvl (test code = Sodium Lvl) 138 135-145 [facility]2017-07-17 15:50:00 Test Item Value Reference Range Interpretation Comments Potassium Lvl (test code = Potassium 3.6 3.5-5.1 Lvl) [facility]2017-07-17 15:50:00 Test Item Value Reference Range Interpretation Comments Glucose Lvl (test code = Glucose Lvl) 82 70-99 [place] 048887-07-17 15:50:00 Test Item Value Reference Range Interpretation Comments Creatinine Lvl (test code = Creatinine 0.71 0.50-1.40 Lvl) [facility]2017-07-17 15:50:00 Test Item Value Reference Range Interpretation Comments BUN (test code = BUN) 4 7-22 [facility]2017-07-17 15:50:00 Test Item Value Reference Range Interpretation Comments Phosphorus (test code = Phosphorus) 3.0 2.5-4.5 [facility]2017-07-17 15:50:00 Test Item Value Reference Range Interpretation Comments Magnesium Lvl (test code = Magnesium 2.3 1.8-2.4 Lvl) [facility] CenterSjtheelIMJGOEQATV9615-89-86 15:50:00 Test Item Value Reference Range Interpretation Comments Eosinophils # (test code 0.1 See_Comment [A utomated message] The = Eosinophils #) system whic h generated this result tra nsmitted reference range : <=0.5. The reference r nikki was not used to int erpret this result as normal/abnormal . [facility] CenterAyktgslTTCWCMWOUG2141-56-11 15:50:00 Test Item Value Reference Range Interpretation Comments Basophils # (test code 0.0 See_Comment [Aut omated message] The = Basophils #) system which generated this result tra nsmitted reference range : <=0.2. The reference r nikki was not used to int erpret this result as normal/abnormal . [facility] CenterCgyccxrLZGYQMDJZJ7394-96-15 15:50:00 Test Item Value Reference Range Interpretation Comments Eosinophils (test code = 0.7 See_Comment [A utomated message] The Eosinophils) system which ge nerated this result tra nsmitted reference range : <=4.0. The reference r nikki was not used to int erpret this result as normal/abnormal . [facility] CenterWdbjvwjAPKNTEZOVR7333-86-39 15:50:00 Test Item Value Reference Range Interpretation Comments Basophils (test code = 0.5 See_Comment [Aut omated message] The Basophils) system which ge nerated this result tra nsmitted reference range : <=1.0. The reference r nikki was not used to int erpret this result as normal/abnormal . [facility] CenterXswblhhZJKFSIVKPJ8211-27-48 15:50:00 Test Item Value Reference Range Interpretation Comments RBC Morph (test code = Normal (02/12/17 10:50 RBC Morph) AM) [facility] CenterIhrbbjzPMJVCEUXLQ7709-66-89 15:50:00 Test Item Value Reference Range Interpretation Comments Plt Morph (test code = Normal (02/12/17 10:50 Plt Morph) AM) [facility] CenterUneofloMUDQJOHJBH2189-00-80 15:50:00 Test Item Value Reference Range Interpretation Comments Segs (test code = Segs) 64.1 45.0-75.0 [facility] CenterPcwyfwkWGVNNEDGCS6543-48-57 15:50:00 Test Item Value Reference Range Interpretation Comments Lymphocytes (test code = Lymphocytes) 25.2 20.0-40.0 [facility] CenterBstabvsFOMSJGYTRV9587-32-08 15:50:00 Test Item Value Reference Range Interpretation Comments Monocytes (test code = Monocytes) 9.5 2.0-12.0 [facility] CenterMfwedqoTITQVBQTYP8429-73-54 15:50:00 Test Item Value Reference Range Interpretation Comments Lymphocytes # (test code = Lymphocytes 2.3 1.0-5.5 #) [facility] CenterPrdbvoaGJKQWYXEPK2076-01-68 15:50:00 Test Item Value Reference Range Interpretation Comments Monocytes # (test code 0.9 See_Comment [Aut omated message] The = Monocytes #) system which generated this result tra nsmitted reference range : <=0.8. The reference r nikki was not used to int erpret this result as normal/abnormal . [facility] CenterJxajdelVDQOFLSCHM0725-02-02 15:50:00 Test Item Value Reference Range Interpretation Comments Segs-Bands # (test code = Segs-Bands #) 5.8 1.5-8.1 [facility] CenterNceqmdpJWGGOIOBVJ8298-98-20 15:50:00 Test Item Value Reference Range Interpretation Comments Hct (test code = Hct) 40.9 36.0-48.0 [facility] CenterMeivzgpSELXPOBZMH6724-96-47 15:50:00 Test Item Value Reference Range Interpretation Comments MCV (test code = MCV) 86.8 80.0-98.0 [facility] CenterGzgzmerRYFSCOZKTP5243-10-65 15:50:00 Test Item Value Reference Range Interpretation Comments MCH (test code = MCH) 28.0 pg 27.0-31.0 [facility] CenterMvsramzFYLWUWHELV6935-52-15 15:50:00 Test Item Value Reference Range Interpretation Comments Hgb (test code = Hgb) 13.2 12.0-16.0 [facility] CenterPoadqozMQTTAALYGL2914-58-72 15:50:00 Test Item Value Reference Range Interpretation Comments WBC (test code = WBC) 9.0 3.7-10.4 [facility] CenterWvcrpfqYILATGXFXY9890-22-25 15:50:00 Test Item Value Reference Range Interpretation Comments RBC (test code = RBC) 4.71 4.20-5.40 [facility] CenterDyucnweOECZPFPRKZ4893-31-93 15:50:00 Test Item Value Reference Range Interpretation Comments RDW (test code = RDW) 13.6 11.5-14.5 [facility] CenterNbpjkuzZAEFWZEIWC5228-35-79 15:50:00 Test Item Value Reference Range Interpretation Comments Platelet (test code = Platelet) 389 133-450 [facility] CenterCgwastvJXOUEMASZJ1644-00-99 15:50:00 Test Item Value Reference Range Interpretation Comments MPV (test code = MPV) 8.4 7.4-10.4 [facility] CenterQmzgzoyPTJYFSWLCY6519-98-07 15:50:00 Test Item Value Reference Range Interpretation Comments MCHC (test code = MCHC) 32.3 32.0-36.0 [facility]2017-07-17 15:50:00 Test Item Value Reference Range Interpretation Comments eGFR (test code = eGFR) 123 [facility]2017-07-17 15:50:00 Test Item Value Reference Range Interpretation Comments Globulin (test code = Globulin) 4.0 2.7-4.2 [facility]2017-07-17 15:50:00 Test Item Value Reference Range Interpretation Comments A/G Ratio (test code = A/G Ratio) 0.8 0.7-1.6 [facility]2017-07-17 15:50:00 Test Item Value Reference Range Interpretation Comments B/C Ratio (test code = B/C Ratio) 6 6-25 [facility]2017-07-17 15:50:00 Test Item Value Reference Range Interpretation Comments AGAP (test code = AGAP) 12.6 10.0-20.0 [facility]2017-07-17 15:50:00 Test Item Value Reference Range Interpretation Comments Alk Phos (test code = Alk Phos) 58 39-136 [facility]2017-07-17 15:50:00 Test Item Value Reference Range Interpretation Comments Bili Total (test code = Bili Total) 0.5 0.2-1.3 [facility]2017-07-17 15:50:00 Test Item Value Reference Range Interpretation Comments AST (test code = AST) 11 See_Comment [Auto mated message] The system which ge nerated this result transmit rohit reference range : <=37. The reference range was not used to interpr et this result as flor l/abnormal. [facility]2017-07-17 15:50:00 Test Item Value Reference Range Interpretation Comments ALT (test code = ALT) 27 See_Comment [Auto mated message] The system which ge nerated this result transmit rohit reference range : <=65. The reference range was not used to interpr et this result as flor l/abnormal. [facility]2017-07-17 15:50:00 Test Item Value Reference Range Interpretation Comments Total Protein (test code = Total 7.4 6.4-8.4 Protein) [facility]2017-07-17 15:50:00 Test Item Value Reference Range Interpretation Comments Albumin Lvl (test code = Albumin Lvl) 3.4 3.5-5.0 [facility]2017-07-17 15:50:00 Test Item Value Reference Range Interpretation Comments Calcium Lvl (test code = Calcium Lvl) 8.7 8.5-10.5 [facility]2017-07-17 15:50:00 Test Item Value Reference Range Interpretation Comments CO2 (test code = CO2) 25 24-32 [facility]2017-07-17 15:50:00 Test Item Value Reference Range Interpretation Comments Chloride Lvl (test code = Chloride Lvl) 104 95-109 [facility]2017-07-17 15:50:00 Test Item Value Reference Range Interpretation Comments Sodium Lvl (test code = Sodium Lvl) 138 135-145 [facility]2017-07-17 15:50:00 Test Item Value Reference Range Interpretation Comments Potassium Lvl (test code = Potassium 3.6 3.5-5.1 Lvl) [facility]2017-07-17 15:50:00 Test Item Value Reference Range Interpretation Comments Glucose Lvl (test code = Glucose Lvl) 82 70-99 [place] 048887-07-17 15:50:00 Test Item Value Reference Range Interpretation Comments Creatinine Lvl (test code = Creatinine 0.71 0.50-1.40 Lvl) [facility]2017-07-17 15:50:00 Test Item Value Reference Range Interpretation Comments BUN (test code = BUN) 4 7-22 [facility]2017-07-17 15:50:00 Test Item Value Reference Range Interpretation Comments Phosphorus (test code = Phosphorus) 3.0 2.5-4.5 [facility]2017-07-17 15:50:00 Test Item Value Reference Range Interpretation Comments Magnesium Lvl (test code = Magnesium 2.3 1.8-2.4 Lvl) [facility] CenterKvlsjhaOYBJCWJDMR2504-95-00 15:50:00 Test Item Value Reference Range Interpretation Comments Eosinophils # (test code 0.1 See_Comment [A utomated message] The = Eosinophils #) system [facility] generated this result tra nsmitted reference range : <=0.5. The reference r nikki was not used to int erpret this result as normal/abnormal . [facility] CenterMpixshyDWHJIDVXYJ5654-36-94 15:50:00 Test Item Value Reference Range Interpretation Comments Basophils # (test code 0.0 See_Comment [Aut omated message] The = Basophils #) system which generated this result tra nsmitted reference range : <=0.2. The reference r nikki was not used to int erpret this result as normal/abnormal . [facility] CenterKxieajgEXXAKMPBVU1614-34-80 15:50:00 Test Item Value Reference Range Interpretation Comments Eosinophils (test code = 0.7 See_Comment [A utomated message] The Eosinophils) system which ge nerated this result tra nsmitted reference range : <=4.0. The reference r nikki was not used to int erpret this result as normal/abnormal . [facility] CenterOskmlujBLUUJQQKBO2983-75-18 15:50:00 Test Item Value Reference Range Interpretation Comments Basophils (test code = 0.5 See_Comment [Aut omated message] The Basophils) system which ge nerated this result tra nsmitted reference range : <=1.0. The reference r nikki was not used to int erpret this result as normal/abnormal . [place] [address]-07-17 15:50:00 Test Item Value Reference Range Interpretation Comments RBC Morph (test code = Normal (02/12/17 10:50 RBC Morph) AM) [facility]WsebgpnXOQYHWIVGJ2783-64-18 15:50:00 Test Item Value Reference Range Interpretation Comments Plt Morph (test code = Normal (02/12/17 10:50 Plt Morph) AM) [facility] CenterOqmxlmvJGHMMEYAPH0815-86-48 15:50:00 Test Item Value Reference Range Interpretation Comments Segs (test code = Segs) 64.1 45.0-75.0 [facility] CenterJcekubfOEGFJGSUQZ8190-53-71 15:50:00 Test Item Value Reference Range Interpretation Comments Lymphocytes (test code = Lymphocytes) 25.2 20.0-40.0 [facility] CenterNnibqqwQWXEJHTUDF7545-26-74 15:50:00 Test Item Value Reference Range Interpretation Comments Monocytes (test code = Monocytes) 9.5 2.0-12.0 [facility] CenterKiyosltEJZPVUHHFQ0974-01-63 15:50:00 Test Item Value Reference Range Interpretation Comments Lymphocytes # (test code = Lymphocytes 2.3 1.0-5.5 #) [facility] CenterZyhmfahSOFPGPJWCG2121-23-41 15:50:00 Test Item Value Reference Range Interpretation Comments Monocytes # (test code 0.9 See_Comment [Aut omated message] The = Monocytes #) system which generated this result tra nsmitted reference range : <=0.8. The reference r nikki was not used to int erpret this result as normal/abnormal . [facility] CenterApndbxeQLKVQYJXSY6648-43-77 15:50:00 Test Item Value Reference Range Interpretation Comments Segs-Bands # (test code = Segs-Bands #) 5.8 1.5-8.1 [facility] CenterPwquqzaCVCTXUQRHM7128-96-82 15:50:00 Test Item Value Reference Range Interpretation Comments Hct (test code = Hct) 40.9 36.0-48.0 [facility] CenterTnolpcyZXTOYDCEYV3513-68-48 15:50:00 Test Item Value Reference Range Interpretation Comments MCV (test code = MCV) 86.8 80.0-98.0 [facility] CenterJywhdqeSXLHCFTQXB6647-19-66 15:50:00 Test Item Value Reference Range Interpretation Comments MCH (test code = MCH) 28.0 pg 27.0-31.0 [facility] CenterHfobcxsRNBWDZVLDZ5052-81-77 15:50:00 Test Item Value Reference Range Interpretation Comments Hgb (test code = Hgb) 13.2 12.0-16.0 [facility] CenterKagjmhaUSTRVBZDVT4574-89-49 15:50:00 Test Item Value Reference Range Interpretation Comments WBC (test code = WBC) 9.0 3.7-10.4 [facility] CenterAcrglgvENTIGHFGZO7218-51-51 15:50:00 Test Item Value Reference Range Interpretation Comments RBC (test code = RBC) 4.71 4.20-5.40 [facility] CenterOyrurtnNISYMKSONK9094-15-80 15:50:00 Test Item Value Reference Range Interpretation Comments RDW (test code = RDW) 13.6 11.5-14.5 [facility] CenterXagtogsFWYREDZBTN5607-97-22 15:50:00 Test Item Value Reference Range Interpretation Comments Platelet (test code = Platelet) 389 133-450 [facility] CenterJhakzrwZLTKBPUWWP9287-58-00 15:50:00 Test Item Value Reference Range Interpretation Comments MPV (test code = MPV) 8.4 7.4-10.4 [facility] CenterYcqhxggCLXGTSDJGC6440-39-00 15:50:00 Test Item Value Reference Range Interpretation Comments MCHC (test code = MCHC) 32.3 32.0-36.0 [facility]2017-07-17 15:50:00 Test Item Value Reference Range Interpretation Comments eGFR (test code = eGFR) 123 [facility]2017-07-17 15:50:00 Test Item Value Reference Range Interpretation Comments Globulin (test code = Globulin) 4.0 2.7-4.2 [facility]2017-07-17 15:50:00 Test Item Value Reference Range Interpretation Comments A/G Ratio (test code = A/G Ratio) 0.8 0.7-1.6 [facility]2017-07-17 15:50:00 Test Item Value Reference Range Interpretation Comments B/C Ratio (test code = B/C Ratio) 6 6-25 [facility]2017-07-17 15:50:00 Test Item Value Reference Range Interpretation Comments AGAP (test code = AGAP) 12.6 10.0-20.0 [facility]2017-07-17 15:50:00 Test Item Value Reference Range Interpretation Comments Alk Phos (test code = Alk Phos) 58 39-136 [facility]2017-07-17 15:50:00 Test Item Value Reference Range Interpretation Comments Bili Total (test code = Bili Total) 0.5 0.2-1.3 [facility]2017-07-17 15:50:00 Test Item Value Reference Range Interpretation Comments AST (test code = AST) 11 See_Comment [Auto mated message] The system which ge nerated this result transmit orhit reference range : <=37. The reference range was not used to interpr et this result as flor l/abnormal. [facility]2017-07-17 15:50:00 Test Item Value Reference Range Interpretation Comments ALT (test code = ALT) 27 See_Comment [Auto mated message] The system which ge nerated this result transmit rohit reference range : <=65. The reference range was not used to interpr et this result as flor l/abnormal. [facility]2017-07-17 15:50:00 Test Item Value Reference Range Interpretation Comments Total Protein (test code = Total 7.4 6.4-8.4 Protein) [facility]2017-07-17 15:50:00 Test Item Value Reference Range Interpretation Comments Albumin Lvl (test code = Albumin Lvl) 3.4 3.5-5.0 [facility]2017-07-17 15:50:00 Test Item Value Reference Range Interpretation Comments Calcium Lvl (test code = Calcium Lvl) 8.7 8.5-10.5 [facility]2017-07-17 15:50:00 Test Item Value Reference Range Interpretation Comments CO2 (test code = CO2) 25 24-32 [facility]2017-07-17 15:50:00 Test Item Value Reference Range Interpretation Comments Chloride Lvl (test code = Chloride Lvl) 104 95-109 [facility]2017-07-17 15:50:00 Test Item Value Reference Range Interpretation Comments Sodium Lvl (test code = Sodium Lvl) 138 135-145 [facility]2017-07-17 15:50:00 Test Item Value Reference Range Interpretation Comments Potassium Lvl (test code = Potassium 3.6 3.5-5.1 Lvl) [facility]2017-07-17 15:50:00 Test Item Value Reference Range Interpretation Comments Glucose Lvl (test code = Glucose Lvl) 82 70-99 [facility]2017-07-17 15:50:00 Test Item Value Reference Range Interpretation Comments Creatinine Lvl (test code = Creatinine 0.71 0.50-1.40 Lvl) [facility]2017-07-17 15:50:00 Test Item Value Reference Range Interpretation Comments BUN (test code = BUN) 4 7-22 [facility]2017-07-17 15:50:00 Test Item Value Reference Range Interpretation Comments Phosphorus (test code = Phosphorus) 3.0 2.5-4.5 [facility]2017-07-17 15:50:00 Test Item Value Reference Range Interpretation Comments Magnesium Lvl (test code = Magnesium 2.3 1.8-2.4 Lvl) [facility] CenterKypdxnrOIYJRTTZVM5241-60-21 15:50:00 Test Item Value Reference Range Interpretation Comments Eosinophils # (test code 0.1 See_Comment [A utomated message] The = Eosinophils #) system [facility] generated this result tra nsmitted reference range : <=0.5. The reference r nikki was not used to int erpret this result as normal/abnormal . [facility] CenterIcfuleoJJXHFYIGZK8355-21-34 15:50:00 Test Item Value Reference Range Interpretation Comments Basophils # (test code 0.0 See_Comment [Aut omated message] The = Basophils #) system which generated this result tra nsmitted reference range : <=0.2. The reference r nikki was not used to int erpret this result as normal/abnormal . [facility] CenterDliwiqsLCBKGLEIKM6840-46-96 15:50:00 Test Item Value Reference Range Interpretation Comments Eosinophils (test code = 0.7 See_Comment [A utomated message] The Eosinophils) system which ge nerated this result tra nsmitted reference range : <=4.0. The reference r nikki was not used to int erpret this result as normal/abnormal . [facility] CenterVccuwzhOWXUHVUXHB4022-78-41 15:50:00 Test Item Value Reference Range Interpretation Comments Basophils (test code = 0.5 See_Comment [Aut omated message] The Basophils) system which ge nerated this result tra nsmitted reference range : <=1.0. The reference r nikki was not used to int erpret this result as normal/abnormal . [facility] CenterPducjzaIMJRFREHFM7065-15-86 15:50:00 Test Item Value Reference Range Interpretation Comments RBC Morph (test code = Normal (02/12/17 10:50 RBC Morph) AM) [facility] CenterGaxgrraINCWZJQFFM3947-58-64 15:50:00 Test Item Value Reference Range Interpretation Comments Plt Morph (test code = Normal (02/12/17 10:50 Plt Morph) AM) [facility] CenterOyeqyfpMQMGCEIPME9843-52-07 15:50:00 Test Item Value Reference Range Interpretation Comments Segs (test code = Segs) 64.1 45.0-75.0 [facility] CenterOzlzniuWVAXHARVXC0567-43-84 15:50:00 Test Item Value Reference Range Interpretation Comments Lymphocytes (test code = Lymphocytes) 25.2 20.0-40.0 [facility] CenterSsriokgJMVBNXZEGO0428-55-90 15:50:00 Test Item Value Reference Range Interpretation Comments Monocytes (test code = Monocytes) 9.5 2.0-12.0 [facility] CenterAbfipppAJXHGCUSGT0235-40-74 15:50:00 Test Item Value Reference Range Interpretation Comments Lymphocytes # (test code = Lymphocytes 2.3 1.0-5.5 #) [facility] CenterIfcotzoPKLRHGNICB2655-35-17 15:50:00 Test Item Value Reference Range Interpretation Comments Monocytes # (test code 0.9 See_Comment [Aut omated message] The = Monocytes #) system which generated this result tra nsmitted reference range : <=0.8. The reference r nikki was not used to int erpret this result as normal/abnormal . [facility] CenterMcenriuTNDWRYHPBJ9372-96-46 15:50:00 Test Item Value Reference Range Interpretation Comments Segs-Bands # (test code = Segs-Bands #) 5.8 1.5-8.1 [facility] CenterLsnokcgSEGXAWTWEQ4693-21-43 15:50:00 Test Item Value Reference Range Interpretation Comments Hct (test code = Hct) 40.9 36.0-48.0 [facility] CenterZpmpfdhVYLNRVUFIN3948-30-33 15:50:00 Test Item Value Reference Range Interpretation Comments MCV (test code = MCV) 86.8 80.0-98.0 [facility] CenterFnkfkzwFDDSMTCOFQ7391-49-49 15:50:00 Test Item Value Reference Range Interpretation Comments MCH (test code = MCH) 28.0 pg 27.0-31.0 [facility] CenterSiyhtypVSHPKQTGCL6862-59-25 15:50:00 Test Item Value Reference Range Interpretation Comments Hgb (test code = Hgb) 13.2 12.0-16.0 [facility] CenterXdvwfdbEEOIHOHJDM7712-23-79 15:50:00 Test Item Value Reference Range Interpretation Comments WBC (test code = WBC) 9.0 3.7-10.4 [facility] CenterXownplxHHGRNKYGAU3861-56-18 15:50:00 Test Item Value Reference Range Interpretation Comments RBC (test code = RBC) 4.71 4.20-5.40 [facility] CenterTjzlijsLSTGKQGDJP1599-74-95 15:50:00 Test Item Value Reference Range Interpretation Comments RDW (test code = RDW) 13.6 11.5-14.5 [facility] CenterHgnpsekZJASSTHVBW5267-22-34 15:50:00 Test Item Value Reference Range Interpretation Comments Platelet (test code = Platelet) 389 133-450 [facility] CenterBndqdojPIWNUJSUEB2866-77-01 15:50:00 Test Item Value Reference Range Interpretation Comments MPV (test code = MPV) 8.4 7.4-10.4 [facility] CenterEkuyfdsLWSJNHPJBD6996-14-17 15:50:00 Test Item Value Reference Range Interpretation Comments MCHC (test code = MCHC) 32.3 32.0-36.0 [facility]QuiwrdxIWMHEZBVVIRL8463-16-89 09:27:00 Test Item Value Reference Range Interpretation Comments Globulin (test code = Globulin) 4.0 2.7-4.2 [facility] HospitalHgcxivtRHVOIRPRXYSH7050-61-13 09:27:00 Test Item Value Reference Range Interpretation Comments Albumin Lvl (test code = Albumin Lvl) 3.4 3.5-5.0 [facility] HospitalCiboxndBKEUQOJXBLKE8073-08-81 09:27:00 Test Item Value Reference Range Interpretation Comments Total Protein (test code = Total 7.4 6.4-8.4 Protein) [facility] CenterCpctxcvMIRTQKHXSO1112-55-09 09:27:00 Test Item Value Reference Range Interpretation Comments RBC (test code = RBC) 4.76 4.20-5.40 [facility] CenterGrwdiakFFVIACNAVH8345-86-82 09:27:00 Test Item Value Reference Range Interpretation Comments Hgb (test code = Hgb) 13.4 12.0-16.0 [facility] CenterWferfhrBCGTJELHAV3526-31-91 09:27:00 Test Item Value Reference Range Interpretation Comments WBC (test code = WBC) 14.5 3.7-10.4 [facility] CenterQywajlkSKFSSQTBMN2205-71-69 09:27:00 Test Item Value Reference Range Interpretation Comments Hct (test code = Hct) 41.0 36.0-48.0 [facility] CenterTpgajgfITHACOFOUY8768-26-92 09:27:00 Test Item Value Reference Range Interpretation Comments MCV (test code = MCV) 86.1 80.0-98.0 [facility] CenterMnuqsozGZXXODLION3917-28-28 09:27:00 Test Item Value Reference Range Interpretation Comments MPV (test code = MPV) 8.6 7.4-10.4 [facility] CenterZjjsaylZFMRHETRGQ5964-23-88 09:27:00 Test Item Value Reference Range Interpretation Comments MCHC (test code = MCHC) 32.6 32.0-36.0 [facility] CenterKozzyzlJJHFSJVPYC7926-95-05 09:27:00 Test Item Value Reference Range Interpretation Comments MCH (test code = MCH) 28.1 pg 27.0-31.0 [facility] CenterBrtjfhoMIRKGTJYGO2606-25-96 09:27:00 Test Item Value Reference Range Interpretation Comments RDW (test code = RDW) 13.6 11.5-14.5 [facility] CenterIsqyqghFFDLMWJAHD2710-89-33 09:27:00 Test Item Value Reference Range Interpretation Comments Platelet (test code = Platelet) 423 133-450 [facility] CenterJgszjdzPBLPTLCUET8603-95-88 09:27:00 Test Item Value Reference Range Interpretation Comments Lymphocytes (test code = Lymphocytes) 15.1 20.0-40.0 [facility] CenterKyobgbhPMRZUUDYYK1363-68-72 09:27:00 Test Item Value Reference Range Interpretation Comments Monocytes (test code = Monocytes) 6.2 2.0-12.0 [facility] CenterXxvwbhiEMLJFBOBXT1576-47-71 09:27:00 Test Item Value Reference Range Interpretation Comments Segs (test code = Segs) 77.7 45.0-75.0 [facility] CenterLsbqmyoJMLWSKNKFJ6375-07-98 09:27:00 Test Item Value Reference Range Interpretation Comments Segs-Bands # (test code = Segs-Bands #) 11.3 1.5-8.1 [place] 785517-07-16 09:27:00 Test Item Value Reference Range Interpretation Comments Eosinophils (test code = Eosinophils) 0.0 <=4.0 [facility] CenterXnncpbrWJBVFAINLB9765-41-67 09:27:00 Test Item Value Reference Range Interpretation Comments Basophils (test code = Basophils) 1.0 <=1.0 [facility] CenterJacckzyWPYRSHKNKB8812-22-99 09:27:00 Test Item Value Reference Range Interpretation Comments Lymphocytes # (test code = Lymphocytes 2.2 1.0-5.5 #) [facility] CenterRmjadmkZKVKLIOGVG1921-08-60 09:27:00 Test Item Value Reference Range Interpretation Comments Monocytes # (test code = Monocytes #) 0.9 <=0.8 [facility] CenterAvsovasDZUOTGQFAI1786-56-71 09:27:00 Test Item Value Reference Range Interpretation Comments Eosinophils # (test code = Eosinophils 0.0 <=0.5 #) [facility] CenterLxsibxeDYHLQINHNJ7903-70-54 09:27:00 Test Item Value Reference Range Interpretation Comments Basophils # (test code = Basophils #) 0.1 <=0.2 [facility] HospitalIpwmiwpKRRXKSBSHJKX3232-64-58 09:27:00 Test Item Value Reference Range Interpretation Comments CO2 (test code = CO2) 25 24-32 [facility] HospitalTxgyzwhRWYTPNSKQUJR4717-45-93 09:27:00 Test Item Value Reference Range Interpretation Comments Potassium Lvl (test code = Potassium 2.9 3.5-5.1 Lvl) [facility] HospitalNjlopvySXQXKAAUOMRU9648-63-61 09:27:00 Test Item Value Reference Range Interpretation Comments Sodium Lvl (test code = Sodium Lvl) 138 135-145 [facility] HospitalQtrjwxfYJHKRNYJSEKQ6393-88-14 09:27:00 Test Item Value Reference Range Interpretation Comments Creatinine Lvl (test code = Creatinine 0.70 0.50-1.40 Lvl) [facility] HospitalWymlaflPFPSAXNRFFGG5876-13-93 09:27:00 Test Item Value Reference Range Interpretation Comments Chloride Lvl (test code = Chloride Lvl) 103 95-109 [facility] HospitalXjhxbluETKFWSPGNMLG7861-94-34 09:27:00 Test Item Value Reference Range Interpretation Comments AGAP (test code = AGAP) 12.9 10.0-20.0 [facility] HospitalNibjjxoSKFQSLBJMFIP2231-48-12 09:27:00 Test Item Value Reference Range Interpretation Comments eGFR (test code = eGFR) 124 [facility] HospitalOpowsyfZLVWGJVGEMTZ2034-15-39 09:27:00 Test Item Value Reference Range Interpretation Comments Calcium Lvl (test code = Calcium Lvl) 8.3 8.5-10.5 [facility] HospitalKslfosfLDQHHGYODTJK6256-27-48 09:27:00 Test Item Value Reference Range Interpretation Comments Bili Total (test code = Bili Total) 0.5 0.2-1.3 [facility] HospitalEarwjfsKCTVCLJECXBJ8300-25-74 09:27:00 Test Item Value Reference Range Interpretation Comments B/C Ratio (test code = B/C Ratio) 10 6-25 [facility] HospitalVxjdunoPEKKIKOVLEIZ9364-27-06 09:27:00 Test Item Value Reference Range Interpretation Comments AST (test code = AST) 10 <=37 [facility] HospitalQzmmvkbGYFDSVWITZXO1768-72-58 09:27:00 Test Item Value Reference Range Interpretation Comments ALT (test code = ALT) 28 <=65 [facility] HospitalWgbgsdyAWJSDPSZREOH1922-63-45 09:27:00 Test Item Value Reference Range Interpretation Comments A/G Ratio (test code = A/G Ratio) 0.8 0.7-1.6 [facility] HospitalPocqbpxUMIQHBBGLYHU2289-68-04 09:27:00 Test Item Value Reference Range Interpretation Comments BUN (test code = BUN) 7 7-22 [facility] HospitalHnvwlbbXBWYSEHWLMAF7060-95-00 09:27:00 Test Item Value Reference Range Interpretation Comments Glucose Lvl (test code = Glucose Lvl) 99 70-99 [facility] HospitalPpwueuuICGNKKXGBSWN5085-04-63 09:27:00 Test Item Value Reference Range Interpretation Comments Alk Phos (test code = Alk Phos) 58 39-136 [facility] HospitalMrkvklwXGBQJVQGZOQA2547-20-73 09:27:00 Test Item Value Reference Range Interpretation Comments Total Protein (test code = Total 7.4 6.4-8.4 Protein) [facility] CenterIajaxyoNNAUZJRRZR5115-47-99 09:27:00 Test Item Value Reference Range Interpretation Comments RBC (test code = RBC) 4.76 4.20-5.40 [facility] CenterZwjcddwISKHTQZGBU9885-86-04 09:27:00 Test Item Value Reference Range Interpretation Comments Hgb (test code = Hgb) 13.4 12.0-16.0 [facility] CenterCnapfkiAXRDLOAZRS6419-28-94 09:27:00 Test Item Value Reference Range Interpretation Comments WBC (test code = WBC) 14.5 3.7-10.4 [facility] CenterFubdcgpTJGZWNOHSK0234-89-27 09:27:00 Test Item Value Reference Range Interpretation Comments Hct (test code = Hct) 41.0 36.0-48.0 [facility] CenterFwialsxCZTEMCNQAU0008-52-38 09:27:00 Test Item Value Reference Range Interpretation Comments MCV (test code = MCV) 86.1 80.0-98.0 [facility] CenterXbheofkTANRWCCJEA6084-44-10 09:27:00 Test Item Value Reference Range Interpretation Comments MPV (test code = MPV) 8.6 7.4-10.4 [facility] CenterYfzaxebOOOWZORNBH2784-89-96 09:27:00 Test Item Value Reference Range Interpretation Comments MCHC (test code = MCHC) 32.6 32.0-36.0 [facility] CenterGzsbfcoQAOAWYDTAD0783-41-80 09:27:00 Test Item Value Reference Range Interpretation Comments MCH (test code = MCH) 28.1 pg 27.0-31.0 [facility] CenterFreohbgPPKXBZLAWX4853-10-36 09:27:00 Test Item Value Reference Range Interpretation Comments RDW (test code = RDW) 13.6 11.5-14.5 [facility] CenterWcoltzvGKYWOWYQSX4643-68-15 09:27:00 Test Item Value Reference Range Interpretation Comments Platelet (test code = Platelet) 423 133-450 [facility] CenterUvdovvmWOBKIHBYWF9637-43-99 09:27:00 Test Item Value Reference Range Interpretation Comments Lymphocytes (test code = Lymphocytes) 15.1 20.0-40.0 [facility] CenterWskqjtdQMFLOSRTBM3530-27-98 09:27:00 Test Item Value Reference Range Interpretation Comments Monocytes (test code = Monocytes) 6.2 2.0-12.0 [facility] CenterCcbyxasXJYCBYJOZO0083-12-18 09:27:00 Test Item Value Reference Range Interpretation Comments Segs (test code = Segs) 77.7 45.0-75.0 [facility] CenterFwxqjxnHDUNPJNVRB8491-56-73 09:27:00 Test Item Value Reference Range Interpretation Comments Segs-Bands # (test code = Segs-Bands #) 11.3 1.5-8.1 [facility] CenterOjipcjsRKVBBINPVX8671-64-92 09:27:00 Test Item Value Reference Range Interpretation Comments Eosinophils (test code = 0.0 See_Comment [A utomated message] The Eosinophils) system which ge nerated this result tra nsmitted reference range : <=4.0. The reference r nikki was not used to int erpret this result as normal/abnormal . [facility] CenterOyzuavgLTHXFBQRBA5361-58-13 09:27:00 Test Item Value Reference Range Interpretation Comments Basophils (test code = 1.0 See_Comment [Aut omated message] The Basophils) system which ge nerated this result tra nsmitted reference range : <=1.0. The reference r nikki was not used to int erpret this result as normal/abnormal . [facility] CenterPfgsgwkPODDVCHQDI1895-00-57 09:27:00 Test Item Value Reference Range Interpretation Comments Lymphocytes # (test code = Lymphocytes 2.2 1.0-5.5 #) [facility] CenterIldtvgdOKLKQDCGYP2071-66-91 09:27:00 Test Item Value Reference Range Interpretation Comments Monocytes # (test code 0.9 See_Comment [Aut omated message] The = Monocytes #) system which generated this result tra nsmitted reference range : <=0.8. The reference r nikki was not used to int erpret this result as normal/abnormal . [facility] CenterZypmjloSZQGGUTZNY8710-76-59 09:27:00 Test Item Value Reference Range Interpretation Comments Eosinophils # (test code 0.0 See_Comment [A utomated message] The = Eosinophils #) system whic h generated this result tra nsmitted reference range : <=0.5. The reference r nikki was not used to int erpret this result as normal/abnormal . [facility] CenterHyjuokcKQQSLHLEKP7254-49-44 09:27:00 Test Item Value Reference Range Interpretation Comments Basophils # (test code 0.1 See_Comment [Aut omated message] The = Basophils #) system which generated this result tra nsmitted reference range : <=0.2. The reference r nikki was not used to int erpret this result as normal/abnormal . [facility] HospitalQaxddtxULIJQIYGNRWH5425-31-53 09:27:00 Test Item Value Reference Range Interpretation Comments CO2 (test code = CO2) 25 24-32 [facility] HospitalVgribmtOSAAVDVVASXM1382-82-14 09:27:00 Test Item Value Reference Range Interpretation Comments Potassium Lvl (test code = Potassium 2.9 3.5-5.1 Lvl) [facility] HospitalOjbgdzcVBYSAHUWUXSL3109-87-54 09:27:00 Test Item Value Reference Range Interpretation Comments Sodium Lvl (test code = Sodium Lvl) 138 135-145 [facility] HospitalTsjjzosHYTKQBHNLRGY6943-00-88 09:27:00 Test Item Value Reference Range Interpretation Comments Creatinine Lvl (test code = Creatinine 0.70 0.50-1.40 Lvl) [facility] HospitalSmefvcoNYYSJNFQDLKV0641-74-98 09:27:00 Test Item Value Reference Range Interpretation Comments Chloride Lvl (test code = Chloride Lvl) 103 95-109 [facility] HospitalMnjkxlaUUXTFCCJTCNJ3877-25-07 09:27:00 Test Item Value Reference Range Interpretation Comments AGAP (test code = AGAP) 12.9 10.0-20.0 [facility] HospitalGvqjgpnPWCVCMCLCAJU9276-31-56 09:27:00 Test Item Value Reference Range Interpretation Comments eGFR (test code = eGFR) 124 [facility] HospitalWajhwysTQGADSRLTAQZ4755-59-78 09:27:00 Test Item Value Reference Range Interpretation Comments Calcium Lvl (test code = Calcium Lvl) 8.3 8.5-10.5 [facility] HospitalXwvfokyTSWRYUZNMVSC6575-41-51 09:27:00 Test Item Value Reference Range Interpretation Comments Bili Total (test code = Bili Total) 0.5 0.2-1.3 [facility] HospitalZpfurhiTEULCYCLMWXU3405-09-45 09:27:00 Test Item Value Reference Range Interpretation Comments B/C Ratio (test code = B/C Ratio) 10 6-25 [facility] HospitalDofvqffXTWBNLNGXYUO6948-54-31 09:27:00 Test Item Value Reference Range Interpretation Comments AST (test code = AST) 10 See_Comment [Auto mated message] The system which ge nerated this result transmit rohit reference range : <=37. The reference range was not used to interpr et this result as flor l/abnormal. [facility]IzhvvssNLVTJLEMHIAW8390-34-68 09:27:00 Test Item Value Reference Range Interpretation Comments ALT (test code = ALT) 28 See_Comment [Auto mated message] The system which ge nerated this result transmit rohit reference range : <=65. The reference range was not used to interpr et this result as flor l/abnormal. [facility] HospitalOtzsbseHNJOXAWFKCJK0505-17-20 09:27:00 Test Item Value Reference Range Interpretation Comments A/G Ratio (test code = A/G Ratio) 0.8 0.7-1.6 [facility] HospitalGjjorrvPKJEUFAMKVZN0877-19-75 09:27:00 Test Item Value Reference Range Interpretation Comments BUN (test code = BUN) 7 7-22 [facility] HospitalQwldstmJRCWULELGZVW7477-90-94 09:27:00 Test Item Value Reference Range Interpretation Comments Glucose Lvl (test code = Glucose Lvl) 99 70-99 [facility] HospitalPbtcqukFKTJEJDMHNBP8256-90-69 09:27:00 Test Item Value Reference Range Interpretation Comments Alk Phos (test code = Alk Phos) 58 39-136 [facility] HospitalJpmtdsdMMTDZEJGAAWT8182-81-86 09:27:00 Test Item Value Reference Range Interpretation Comments Globulin (test code = Globulin) 4.0 2.7-4.2 [facility] HospitalNyezdoqOLSDDAXCLJFI9908-06-26 09:27:00 Test Item Value Reference Range Interpretation Comments Albumin Lvl (test code = Albumin Lvl) 3.4 3.5-5.0 [facility] HospitalLcpbcilDCEWPTJFOLKY9039-42-84 09:27:00 Test Item Value Reference Range Interpretation Comments Total Protein (test code = Total 7.4 6.4-8.4 Protein) [facility]PfpbhzxZITEXNYGKK0638-90-53 09:27:00 Test Item Value Reference Range Interpretation Comments RBC (test code = RBC) 4.76 4.20-5.40 [facility] CenterHezbcadLSPUNXAVOL0992-45-02 09:27:00 Test Item Value Reference Range Interpretation Comments Hgb (test code = Hgb) 13.4 12.0-16.0 [facility] CenterOhvmzbdEHXMKVLOKQ2124-92-02 09:27:00 Test Item Value Reference Range Interpretation Comments WBC (test code = WBC) 14.5 3.7-10.4 [facility] CenterBiyytrfLUYHLWPBPB3494-59-78 09:27:00 Test Item Value Reference Range Interpretation Comments Hct (test code = Hct) 41.0 36.0-48.0 [facility] CenterSfdqatxOFTVZZTNUE8142-69-70 09:27:00 Test Item Value Reference Range Interpretation Comments MCV (test code = MCV) 86.1 80.0-98.0 [facility] CenterCizbpmyEBWOGXIUGC4590-75-31 09:27:00 Test Item Value Reference Range Interpretation Comments MPV (test code = MPV) 8.6 7.4-10.4 [facility] CenterAdjjeryBQUJHMNZGG3194-05-30 09:27:00 Test Item Value Reference Range Interpretation Comments MCHC (test code = MCHC) 32.6 32.0-36.0 [facility] CenterEztcmbvQQLPRIXQQN6239-79-96 09:27:00 Test Item Value Reference Range Interpretation Comments MCH (test code = MCH) 28.1 pg 27.0-31.0 [facility] CenterXbmvipzIVYPPQDBNH6787-52-81 09:27:00 Test Item Value Reference Range Interpretation Comments RDW (test code = RDW) 13.6 11.5-14.5 [facility] CenterJynubefVRNUOGZEWE4988-00-65 09:27:00 Test Item Value Reference Range Interpretation Comments Platelet (test code = Platelet) 423 133-450 [facility] CenterLljnbrmYDVCORXGPK8850-55-09 09:27:00 Test Item Value Reference Range Interpretation Comments Lymphocytes (test code = Lymphocytes) 15.1 20.0-40.0 [facility] CenterEobnpjcVJPWWNFBZB4836-38-98 09:27:00 Test Item Value Reference Range Interpretation Comments Monocytes (test code = Monocytes) 6.2 2.0-12.0 [facility] CenterOpfelinEWZAQNLNOL8979-96-23 09:27:00 Test Item Value Reference Range Interpretation Comments Segs (test code = Segs) 77.7 45.0-75.0 [facility] CenterSbohiueYCSDJLAWGW5293-99-58 09:27:00 Test Item Value Reference Range Interpretation Comments Segs-Bands # (test code = Segs-Bands #) 11.3 1.5-8.1 [facility] CenterPhotmilUQUKNGBUHS2502-53-57 09:27:00 Test Item Value Reference Range Interpretation Comments Eosinophils (test code = 0.0 See_Comment [A utomated message] The Eosinophils) system which ge nerated this result tra nsmitted reference range : <=4.0. The reference r nikki was not used to int erpret this result as normal/abnormal . [facility] CenterZavfabsTLPTLJWDJR9183-33-48 09:27:00 Test Item Value Reference Range Interpretation Comments Basophils (test code = 1.0 See_Comment [Aut omated message] The Basophils) system which ge nerated this result tra nsmitted reference range : <=1.0. The reference r nikki was not used to int erpret this result as normal/abnormal . [facility] CenterGbywkrxLEUSNGCMOH2513-59-74 09:27:00 Test Item Value Reference Range Interpretation Comments Lymphocytes # (test code = Lymphocytes 2.2 1.0-5.5 #) [facility] CenterRxnaxscTFVIJQOMQA8548-04-35 09:27:00 Test Item Value Reference Range Interpretation Comments Monocytes # (test code 0.9 See_Comment [Aut omated message] The = Monocytes #) system which generated this result tra nsmitted reference range : <=0.8. The reference r nikki was not used to int erpret this result as normal/abnormal . [facility] CenterWrssgawIEJPAVZRBV9918-05-82 09:27:00 Test Item Value Reference Range Interpretation Comments Eosinophils # (test code 0.0 See_Comment [A utomated message] The = Eosinophils #) system whic h generated this result tra nsmitted reference range : <=0.5. The reference r nikki was not used to int erpret this result as normal/abnormal . [facility] CenterCyqsrcoTFSEPLJJUG4040-44-05 09:27:00 Test Item Value Reference Range Interpretation Comments Basophils # (test code 0.1 See_Comment [Aut omated message] The = Basophils #) system which generated this result tra nsmitted reference range : <=0.2. The reference r nikki was not used to int erpret this result as normal/abnormal . [facility] HospitalFveebupXEKYRXOKCPSJ0520-32-68 09:27:00 Test Item Value Reference Range Interpretation Comments CO2 (test code = CO2) 25 24-32 [facility] HospitalIimakllDWHDWGJTDZKU6294-21-77 09:27:00 Test Item Value Reference Range Interpretation Comments Potassium Lvl (test code = Potassium 2.9 3.5-5.1 Lvl) [facility] HospitalSgvoxzpDARKSHLPTPXG1962-56-96 09:27:00 Test Item Value Reference Range Interpretation Comments Sodium Lvl (test code = Sodium Lvl) 138 135-145 [facility] HospitalQfrxefkKGTMZWIQPZKK6333-96-29 09:27:00 Test Item Value Reference Range Interpretation Comments Creatinine Lvl (test code = Creatinine 0.70 0.50-1.40 Lvl) [facility] HospitalVfggixoUEDFQVEFDJRU3728-61-00 09:27:00 Test Item Value Reference Range Interpretation Comments Chloride Lvl (test code = Chloride Lvl) 103 95-109 [facility] HospitalYaljuulGQCSEQUQLYBV2880-55-17 09:27:00 Test Item Value Reference Range Interpretation Comments AGAP (test code = AGAP) 12.9 10.0-20.0 [facility] HospitalPmxbkipRJIQHXGGLDJR9397-00-24 09:27:00 Test Item Value Reference Range Interpretation Comments eGFR (test code = eGFR) 124 [facility] HospitalBdgmdcgNQXMTZKLKZGF3502-11-16 09:27:00 Test Item Value Reference Range Interpretation Comments Calcium Lvl (test code = Calcium Lvl) 8.3 8.5-10.5 [facility] HospitalNvymewkYAUSWBMFVBZV5460-01-24 09:27:00 Test Item Value Reference Range Interpretation Comments Bili Total (test code = Bili Total) 0.5 0.2-1.3 [facility] HospitalOpphsirRDBWFSQEFDYB2927-81-33 09:27:00 Test Item Value Reference Range Interpretation Comments B/C Ratio (test code = B/C Ratio) 10 6-25 [facility] HospitalQwytctdOCTGWCFFRMPQ6340-51-07 09:27:00 Test Item Value Reference Range Interpretation Comments AST (test code = AST) 10 See_Comment [Auto mated message] The system which ge nerated this result transmit rohit reference range : <=37. The reference range was not used to interpr et this result as flor l/abnormal. [facility] HospitalTzlfkqdTGKVMFRUOFVY2752-31-69 09:27:00 Test Item Value Reference Range Interpretation Comments ALT (test code = ALT) 28 See_Comment [Auto mated message] The system which ge nerated this result transmit rohit reference range : <=65. The reference range was not used to interpr et this result as flor l/abnormal. [facility] HospitalUgszyvfCQXDIOMVXNKH0518-90-21 09:27:00 Test Item Value Reference Range Interpretation Comments A/G Ratio (test code = A/G Ratio) 0.8 0.7-1.6 [facility] HospitalBaayyhhIZPJWEPBQVFE1837-33-54 09:27:00 Test Item Value Reference Range Interpretation Comments BUN (test code = BUN) 7 7-22 [facility] HospitalHxeyqipGTLLOCVFJQGO8457-75-05 09:27:00 Test Item Value Reference Range Interpretation Comments Glucose Lvl (test code = Glucose Lvl) 99 70-99 [place] 211777-07-16 09:27:00 Test Item Value Reference Range Interpretation Comments Alk Phos (test code = Alk Phos) 58 39-136 [facility] HospitalOkvnapsPDCYKKNWDYZA8199-17-11 09:27:00 Test Item Value Reference Range Interpretation Comments Globulin (test code = Globulin) 4.0 2.7-4.2 [facility] HospitalFmmrncbRWHGWJGZZGTB8779-87-11 09:27:00 Test Item Value Reference Range Interpretation Comments Albumin Lvl (test code = Albumin Lvl) 3.4 3.5-5.0 [facility] HospitalMstcdnoLMRGDTGHUEFF2377-32-47 09:27:00 Test Item Value Reference Range Interpretation Comments Total Protein (test code = Total 7.4 6.4-8.4 Protein) [facility] CenterRayyrcpIYCFDMPKNJ5589-32-55 09:27:00 Test Item Value Reference Range Interpretation Comments RBC (test code = RBC) 4.76 4.20-5.40 [facility] CenterIqvhrlnSSPMVZKYXC6552-06-41 09:27:00 Test Item Value Reference Range Interpretation Comments Hgb (test code = Hgb) 13.4 12.0-16.0 [facility] CenterDnltuhuEHCOYYZMOP2657-33-93 09:27:00 Test Item Value Reference Range Interpretation Comments WBC (test code = WBC) 14.5 3.7-10.4 [facility] CenterBeejiaeGHEILSKYLM5740-63-18 09:27:00 Test Item Value Reference Range Interpretation Comments Hct (test code = Hct) 41.0 36.0-48.0 [facility] CenterLmpmfwrVPALWBQZVK4859-70-51 09:27:00 Test Item Value Reference Range Interpretation Comments MCV (test code = MCV) 86.1 80.0-98.0 [facility] CenterYezcxknTXZUZVFRDZ0510-73-10 09:27:00 Test Item Value Reference Range Interpretation Comments MPV (test code = MPV) 8.6 7.4-10.4 [facility] CenterCzvysazPCEYBHKAWT3687-37-39 09:27:00 Test Item Value Reference Range Interpretation Comments MCHC (test code = MCHC) 32.6 32.0-36.0 [facility] CenterBzltwipXCKEKPHSIF2627-71-79 09:27:00 Test Item Value Reference Range Interpretation Comments MCH (test code = MCH) 28.1 pg 27.0-31.0 [facility] CenterDfztrqkWKRWFXTOKG4760-94-75 09:27:00 Test Item Value Reference Range Interpretation Comments RDW (test code = RDW) 13.6 11.5-14.5 [facility] CenterDbdmuqtORQMCWSKOL4961-91-84 09:27:00 Test Item Value Reference Range Interpretation Comments Platelet (test code = Platelet) 423 133-450 [facility] CenterVfzjlxpMRKPVMPBUI5425-55-79 09:27:00 Test Item Value Reference Range Interpretation Comments Lymphocytes (test code = Lymphocytes) 15.1 20.0-40.0 [facility] CenterUebbdyeUEIMRYAEXY1890-22-98 09:27:00 Test Item Value Reference Range Interpretation Comments Monocytes (test code = Monocytes) 6.2 2.0-12.0 [facility] CenterFxjkwzmXZUERMHPBP4170-78-04 09:27:00 Test Item Value Reference Range Interpretation Comments Segs (test code = Segs) 77.7 45.0-75.0 [facility] CenterIpffohhAGBDSGMQDJ8727-23-66 09:27:00 Test Item Value Reference Range Interpretation Comments Segs-Bands # (test code = Segs-Bands #) 11.3 1.5-8.1 [facility] CenterRfyexouBGHCQXBLMF5970-99-32 09:27:00 Test Item Value Reference Range Interpretation Comments Eosinophils (test code = 0.0 See_Comment [A utomated message] The Eosinophils) system which ge nerated this result tra nsmitted reference range : <=4.0. The reference r nikki was not used to int erpret this result as normal/abnormal . [facility] CenterOtvsiauFAPDCNADQE7772-73-16 09:27:00 Test Item Value Reference Range Interpretation Comments Basophils (test code = 1.0 See_Comment [Aut omated message] The Basophils) system which ge nerated this result tra nsmitted reference range : <=1.0. The reference r nikki was not used to int erpret this result as normal/abnormal . [facility] CenterWqtaxjiCCDUSTQXLP3685-14-91 09:27:00 Test Item Value Reference Range Interpretation Comments Lymphocytes # (test code = Lymphocytes 2.2 1.0-5.5 #) [facility] CenterTodpjyaSJGWYLCTAY3406-09-08 09:27:00 Test Item Value Reference Range Interpretation Comments Monocytes # (test code 0.9 See_Comment [Aut omated message] The = Monocytes #) system which generated this result tra nsmitted reference range : <=0.8. The reference r nikki was not used to int erpret this result as normal/abnormal . [facility] CenterRaogwmpYYQPWILLSE5060-09-80 09:27:00 Test Item Value Reference Range Interpretation Comments Eosinophils # (test code 0.0 See_Comment [A utomated message] The = Eosinophils #) system whic h generated this result tra nsmitted reference range : <=0.5. The reference r nikki was not used to int erpret this result as normal/abnormal . [facility] CenterLxnmehqSVLEHYRZHX1006-57-26 09:27:00 Test Item Value Reference Range Interpretation Comments Basophils # (test code 0.1 See_Comment [Aut omated message] The = Basophils #) system which generated this result tra nsmitted reference range : <=0.2. The reference r nikki was not used to int erpret this result as normal/abnormal . [facility] HospitalGquuopiYAOYGWQPXBUC4698-25-03 09:27:00 Test Item Value Reference Range Interpretation Comments CO2 (test code = CO2) 25 24-32 [facility] HospitalVhlosulMYRBFJMJPGXT0369-48-62 09:27:00 Test Item Value Reference Range Interpretation Comments Potassium Lvl (test code = Potassium 2.9 3.5-5.1 Lvl) [facility] HospitalAitrtyjUVYHVNLLGDGA6915-06-35 09:27:00 Test Item Value Reference Range Interpretation Comments Sodium Lvl (test code = Sodium Lvl) 138 135-145 [facility] HospitalIexswonVPVPDFUDTQHE5137-23-47 09:27:00 Test Item Value Reference Range Interpretation Comments Creatinine Lvl (test code = Creatinine 0.70 0.50-1.40 Lvl) [facility] HospitalGtomjqcIXJAXHEIAQUD5017-70-02 09:27:00 Test Item Value Reference Range Interpretation Comments Chloride Lvl (test code = Chloride Lvl) 103 95-109 [facility] HospitalPssygjaEUMHPMYKVVPE0268-22-57 09:27:00 Test Item Value Reference Range Interpretation Comments AGAP (test code = AGAP) 12.9 10.0-20.0 [facility] HospitalVnbxbevVBKPEDPNKPEA8106-56-15 09:27:00 Test Item Value Reference Range Interpretation Comments eGFR (test code = eGFR) 124 [facility] HospitalCzpleobPPDWLFHUKSVY4579-45-16 09:27:00 Test Item Value Reference Range Interpretation Comments Calcium Lvl (test code = Calcium Lvl) 8.3 8.5-10.5 [facility] HospitalPfbvtxzINBEFBZNGVPA7015-33-54 09:27:00 Test Item Value Reference Range Interpretation Comments Bili Total (test code = Bili Total) 0.5 0.2-1.3 [facility] HospitalMvtsjpbHLPTZWTACVZE7756-05-91 09:27:00 Test Item Value Reference Range Interpretation Comments B/C Ratio (test code = B/C Ratio) 10 6-25 [facility] HospitalHeanfadVAKZBCWSKTVI5378-94-12 09:27:00 Test Item Value Reference Range Interpretation Comments AST (test code = AST) 10 See_Comment [Auto mated message] The system which ge nerated this result transmit rohit reference range : <=37. The reference range was not used to interpr et this result as flor l/abnormal. [facility] HospitalMcsrzgtISCVMTAWBPKE7735-78-99 09:27:00 Test Item Value Reference Range Interpretation Comments ALT (test code = ALT) 28 See_Comment [Auto mated message] The system which ge nerated this result transmit rohit reference range : <=65. The reference range was not used to interpr et this result as flor l/abnormal. [facility] HospitalPkmehwcVVEHPGWTHSJP4399-74-04 09:27:00 Test Item Value Reference Range Interpretation Comments A/G Ratio (test code = A/G Ratio) 0.8 0.7-1.6 [facility] HospitalEveduobYOGNGYBBJNZA4187-64-75 09:27:00 Test Item Value Reference Range Interpretation Comments BUN (test code = BUN) 7 7-22 [facility] HospitalVlrwzieOEAAFKOWLGDY9711-41-96 09:27:00 Test Item Value Reference Range Interpretation Comments Glucose Lvl (test code = Glucose Lvl) 99 70-99 [facility] HospitalYfrgazhWQXMGPPSJTGY8174-51-66 09:27:00 Test Item Value Reference Range Interpretation Comments Alk Phos (test code = Alk Phos) 58 39-136 [facility] HospitalCpugizmXEWSOZUPXPNO0766-68-74 09:27:00 Test Item Value Reference Range Interpretation Comments Globulin (test code = Globulin) 4.0 2.7-4.2 [facility] HospitalIsnlwwmHYHWXNXJKSAU0590-56-04 09:27:00 Test Item Value Reference Range Interpretation Comments Albumin Lvl (test code = Albumin Lvl) 3.4 3.5-5.0 [facility] HospitalFwgspowQBRMSTENGYZI3457-37-61 09:27:00 Test Item Value Reference Range Interpretation Comments Total Protein (test code = Total 7.4 6.4-8.4 Protein) [facility] CenterLfjsblmJVNGQSHQDR1230-68-21 09:27:00 Test Item Value Reference Range Interpretation Comments RBC (test code = RBC) 4.76 4.20-5.40 [facility] CenterDnzeglgWQXJENSPVP5775-98-41 09:27:00 Test Item Value Reference Range Interpretation Comments Hgb (test code = Hgb) 13.4 12.0-16.0 [facility] CenterSdawdaoQSVOUQYCDD6469-05-34 09:27:00 Test Item Value Reference Range Interpretation Comments WBC (test code = WBC) 14.5 3.7-10.4 [facility] CenterWvfoddgOIOWNTBDLN8662-77-40 09:27:00 Test Item Value Reference Range Interpretation Comments Hct (test code = Hct) 41.0 36.0-48.0 [facility] CenterDlsnhvxHTEOHJKWRM9141-44-12 09:27:00 Test Item Value Reference Range Interpretation Comments MCV (test code = MCV) 86.1 80.0-98.0 [facility] CenterWgdyyrdLHGMNRSEVK7238-39-42 09:27:00 Test Item Value Reference Range Interpretation Comments MPV (test code = MPV) 8.6 7.4-10.4 [facility] CenterCnqekxrMTVJSHDLNO4090-83-83 09:27:00 Test Item Value Reference Range Interpretation Comments MCHC (test code = MCHC) 32.6 32.0-36.0 [facility] CenterWzphzsvZOSEVVHCRI3906-72-48 09:27:00 Test Item Value Reference Range Interpretation Comments MCH (test code = MCH) 28.1 pg 27.0-31.0 [facility] CenterFqoukeyOVGHKIEJJI0511-88-12 09:27:00 Test Item Value Reference Range Interpretation Comments RDW (test code = RDW) 13.6 11.5-14.5 [facility] CenterYoemcdaAVVMVVNQOS4658-63-78 09:27:00 Test Item Value Reference Range Interpretation Comments Platelet (test code = Platelet) 423 383-450 [facility] CenterUqwvepfIJGJGWLWON4594-81-70 09:27:00 Test Item Value Reference Range Interpretation Comments Lymphocytes (test code = Lymphocytes) 15.1 20.0-40.0 [facility] CenterWmqjqqsRNUZPRDANU4260-76-86 09:27:00 Test Item Value Reference Range Interpretation Comments Monocytes (test code = Monocytes) 6.2 2.0-12.0 [facility] CenterQwrwwoiYPIZGSOLYB8185-19-64 09:27:00 Test Item Value Reference Range Interpretation Comments Segs (test code = Segs) 77.7 45.0-75.0 [facility] CenterMepsecgAIFKUTVFKK2770-94-02 09:27:00 Test Item Value Reference Range Interpretation Comments Segs-Bands # (test code = Segs-Bands #) 11.3 1.5-8.1 [facility] CenterLkzbujtTTBGDDKMPX7157-38-92 09:27:00 Test Item Value Reference Range Interpretation Comments Eosinophils (test code = 0.0 See_Comment [A utomated message] The Eosinophils) system which ge nerated this result tra nsmitted reference range : <=4.0. The reference r nikki was not used to int erpret this result as normal/abnormal . [facility] CenterSmhgjxmZNOLNQOVXJ4056-54-63 09:27:00 Test Item Value Reference Range Interpretation Comments Basophils (test code = 1.0 See_Comment [Aut omated message] The Basophils) system which ge nerated this result tra nsmitted reference range : <=1.0. The reference r nikki was not used to int erpret this result as normal/abnormal . [facility] CenterBtevdtpGEHBLJCPZS6881-27-44 09:27:00 Test Item Value Reference Range Interpretation Comments Lymphocytes # (test code = Lymphocytes 2.2 1.0-5.5 #) [facility] CenterBafkkiaMLFZQCWKCM8020-61-82 09:27:00 Test Item Value Reference Range Interpretation Comments Monocytes # (test code 0.9 See_Comment [Aut omated message] The = Monocytes #) system which generated this result tra nsmitted reference range : <=0.8. The reference r nikki was not used to int erpret this result as normal/abnormal . [facility] CenterPrjzcrmZSGWMXGLFH2924-25-41 09:27:00 Test Item Value Reference Range Interpretation Comments Eosinophils # (test code 0.0 See_Comment [A utomated message] The = Eosinophils #) system whic h generated this result tra nsmitted reference range : <=0.5. The reference r nikki was not used to int erpret this result as normal/abnormal . [facility] CenterGkfvhvzKROFWZYXVK7723-94-97 09:27:00 Test Item Value Reference Range Interpretation Comments Basophils # (test code 0.1 See_Comment [Aut omated message] The = Basophils #) system which generated this result tra nsmitted reference range : <=0.2. The reference r nikki was not used to int erpret this result as normal/abnormal . [facility] HospitalQyumdivCRRSGVZQBNVY5362-26-38 09:27:00 Test Item Value Reference Range Interpretation Comments CO2 (test code = CO2) 25 24-32 [facility] HospitalTzmokpmWNEZYUKGILNQ6530-56-37 09:27:00 Test Item Value Reference Range Interpretation Comments Potassium Lvl (test code = Potassium 2.9 3.5-5.1 Lvl) [facility] HospitalJjfcuwkPGTWHGJOEQEM1464-06-53 09:27:00 Test Item Value Reference Range Interpretation Comments Sodium Lvl (test code = Sodium Lvl) 138 135-145 [facility] HospitalMikhmpuJINHRLOJOLUM1358-40-64 09:27:00 Test Item Value Reference Range Interpretation Comments Creatinine Lvl (test code = Creatinine 0.70 0.50-1.40 Lvl) [facility] HospitalDlmvqmgMTYRXWBFBRML7560-62-28 09:27:00 Test Item Value Reference Range Interpretation Comments Chloride Lvl (test code = Chloride Lvl) 103 95-109 [facility] HospitalWwjbbatAOBFANNITCSO9127-07-39 09:27:00 Test Item Value Reference Range Interpretation Comments AGAP (test code = AGAP) 12.9 10.0-20.0 [facility] HospitalPsyzgptOTNHSVUQQHLO7540-05-95 09:27:00 Test Item Value Reference Range Interpretation Comments eGFR (test code = eGFR) 124 [facility] HospitalMrdwliaNSMVPXXYNLZN2423-48-76 09:27:00 Test Item Value Reference Range Interpretation Comments Calcium Lvl (test code = Calcium Lvl) 8.3 8.5-10.5 [facility] HospitalKwkifeuGEJZYRYEQAOU6439-00-79 09:27:00 Test Item Value Reference Range Interpretation Comments Bili Total (test code = Bili Total) 0.5 0.2-1.3 [facility] HospitalNougyijLOHKPDBNNGES9540-16-14 09:27:00 Test Item Value Reference Range Interpretation Comments B/C Ratio (test code = B/C Ratio) 10 6-25 [facility] HospitalSebnbgvGJZLRRPKWWUC2203-36-79 09:27:00 Test Item Value Reference Range Interpretation Comments AST (test code = AST) 10 See_Comment [Auto mated message] The system which ge nerated this result transmit rohit reference range : <=37. The reference range was not used to interpr et this result as flor l/abnormal. [facility] HospitalEwwlrjtYXHMOGPWDGFG0306-50-72 09:27:00 Test Item Value Reference Range Interpretation Comments ALT (test code = ALT) 28 See_Comment [Auto mated message] The system which ge nerated this result transmit rohit reference range : <=65. The reference range was not used to interpr et this result as flor l/abnormal. [facility]BtqpxijLBTSCYIOUQPC4509-30-76 09:27:00 Test Item Value Reference Range Interpretation Comments A/G Ratio (test code = A/G Ratio) 0.8 0.7-1.6 [facility]YbecomnQOEUYKNTQUUH7836-99-06 09:27:00 Test Item Value Reference Range Interpretation Comments BUN (test code = BUN) 7 7-22 [facility] CampusMffksapJGAOOTOJXGYL0477-86-66 09:27:00 Test Item Value Reference Range Interpretation Comments Glucose Lvl (test code = Glucose Lvl) 99 70-99 [facility] CampusDvgmxkjQCVQOGTHZOGT7879-74-32 09:27:00 Test Item Value Reference Range Interpretation Comments Alk Phos (test code = Alk Phos) 58 39-136 [facility] CampusEusvcxzOASIAQDBWMEJ5598-90-89 09:27:00 Test Item Value Reference Range Interpretation Comments Globulin (test code = Globulin) 4.0 2.7-4.2 [facility] CampusUsiazdeDYBPQYJVJXFG0355-69-63 09:27:00 Test Item Value Reference Range Interpretation Comments Albumin Lvl (test code = Albumin Lvl) 3.4 3.5-5.0 [facility] [employer] [id number] 05:20:00 Test Item Value Reference Range Interpretation Comments eGFR (test code = eGFR) 82 [facility] [employer] [id number] 05:20:00 Test Item Value Reference Range Interpretation Comments Albumin Lvl (test code = Albumin Lvl) 3.8 3.5-5.0 [facility] [employer] [id number] 05:20:00 Test Item Value Reference Range Interpretation Comments Globulin (test code = Globulin) 4.6 2.7-4.2 [facility] [employer] [id number] 05:20:00 Test Item Value Reference Range Interpretation Comments AST (test code = AST) 11 <=37 [facility]2017-07-16 05:20:00 Test Item Value Reference Range Interpretation Comments ALT (test code = ALT) 34 <=65 [facility]2017-07-16 05:20:00 Test Item Value Reference Range Interpretation Comments Alk Phos (test code = Alk Phos) 65 39-136 [facility]2017-07-16 05:20:00 Test Item Value Reference Range Interpretation Comments Bili Total (test code = Bili Total) 0.6 0.2-1.3 [facility]2017-07-16 05:20:00 Test Item Value Reference Range Interpretation Comments Sodium Lvl (test code = Sodium Lvl) 138 135-145 [facility]2017-07-16 05:20:00 Test Item Value Reference Range Interpretation Comments Potassium Lvl (test code = Potassium 2.6 3.5-5.1 Lvl) [facility]2017-07-16 05:20:00 Test Item Value Reference Range Interpretation Comments Creatinine Lvl (test code = Creatinine 0.99 0.50-1.40 Lvl) [facility]2017-07-16 05:20:00 Test Item Value Reference Range Interpretation Comments Glucose Lvl (test code = Glucose Lvl) 107 70-99 [facility]2017-07-16 05:20:00 Test Item Value Reference Range Interpretation Comments BUN (test code = BUN) 8 7-22 [facility]2017-07-16 05:20:00 Test Item Value Reference Range Interpretation Comments B/C Ratio (test code = B/C Ratio) 8 6-25 [facility]2017-07-16 05:20:00 Test Item Value Reference Range Interpretation Comments AGAP (test code = AGAP) 15.6 10.0-20.0 [facility]2017-07-16 05:20:00 Test Item Value Reference Range Interpretation Comments Calcium Lvl (test code = Calcium Lvl) 8.9 8.5-10.5 [facility]2017-07-16 05:20:00 Test Item Value Reference Range Interpretation Comments Chloride Lvl (test code = Chloride Lvl) 102 95-109 [place] [id number] 05:20:00 Test Item Value Reference Range Interpretation Comments CO2 (test code = CO2) 23 24-32 [facility]2017-07-16 05:20:00 Test Item Value Reference Range Interpretation Comments Total Protein (test code = Total 8.4 6.4-8.4 Protein) [facility]2017-07-16 05:20:00 Test Item Value Reference Range Interpretation Comments A/G Ratio (test code = A/G Ratio) 0.8 0.7-1.6 [facility]2017-07-16 05:20:00 Test Item Value Reference Range Interpretation Comments Lipase Lvl (test code = Lipase Lvl) 79 73-393 [facility]2017-07-16 05:20:00 Test Item Value Reference Range Interpretation Comments Amylase Lvl (test code = Amylase Lvl) 28 25-115 [facility]WcdeevcAGOQPORGYB6389-06-02 05:20:00 Test Item Value Reference Range Interpretation Comments WBC (test code = WBC) 15.2 3.7-10.4 [facility] CenterXkccmjpUJAEPFZXUR2264-48-65 05:20:00 Test Item Value Reference Range Interpretation Comments RBC (test code = RBC) 5.38 4.20-5.40 [facility] CenterBuqkubkKCJNJCSGPL1099-07-90 05:20:00 Test Item Value Reference Range Interpretation Comments MCV (test code = MCV) 85.3 80.0-98.0 [facility] CenterLatggicBDEUXLCAMH7215-27-16 05:20:00 Test Item Value Reference Range Interpretation Comments Hct (test code = Hct) 45.9 36.0-48.0 [facility] CenterTxshexnNBUQXDTLJF2779-62-66 05:20:00 Test Item Value Reference Range Interpretation Comments Hgb (test code = Hgb) 15.0 12.0-16.0 [facility] CenterSdcjbseRDJUHTRQLE0659-82-81 05:20:00 Test Item Value Reference Range Interpretation Comments MCHC (test code = MCHC) 32.8 32.0-36.0 [facility] CenterSsxbapfYCYNBSODTK6961-30-22 05:20:00 Test Item Value Reference Range Interpretation Comments MCH (test code = MCH) 27.9 pg 27.0-31.0 [facility] CenterWxqwsooERSZNATXBR9257-43-87 05:20:00 Test Item Value Reference Range Interpretation Comments MPV (test code = MPV) 9.1 7.4-10.4 [facility] CenterHlnnyvhRXBOHJRFTD3290-93-30 05:20:00 Test Item Value Reference Range Interpretation Comments Platelet (test code = Platelet) 455 133-450 [facility] CenterGiutahzFEGMGMPEBU5822-60-72 05:20:00 Test Item Value Reference Range Interpretation Comments RDW (test code = RDW) 13.0 11.5-14.5 [facility] CenterKezcyvyBZYNFYAFQK1046-23-07 05:20:00 Test Item Value Reference Range Interpretation Comments Basophils (test code = Basophils) 0.0 <=1.0 [facility] CenterKqxiaseZJIHWHIGHB8287-45-77 05:20:00 Test Item Value Reference Range Interpretation Comments Eosinophils (test code = Eosinophils) 0.0 <=4.0 [facility] CenterNdqlxhpRRJJWJIJWW7828-04-87 05:20:00 Test Item Value Reference Range Interpretation Comments Lymphocytes # (test code = Lymphocytes 1.3 1.0-5.5 #) [facility] CenterIudbislXWWKPYRJYW4221-88-10 05:20:00 Test Item Value Reference Range Interpretation Comments Segs-Bands # (test code = Segs-Bands #) 13.5 1.5-8.1 [facility] CenterAejymulIAMWMEZIGB5329-18-09 05:20:00 Test Item Value Reference Range Interpretation Comments Monocytes (test code = Monocytes) 2.8 2.0-12.0 [facility] CenterJpnnhziFKWMOKXRRC2233-76-77 05:20:00 Test Item Value Reference Range Interpretation Comments Basophils # (test code = Basophils #) 0.0 <=0.2 [facility] CenterLrvsqplCLDLFWPJDH1251-45-89 05:20:00 Test Item Value Reference Range Interpretation Comments Eosinophils # (test code = Eosinophils 0.0 <=0.5 #) [facility] CenterPhyqiumLSFUXTQFQP7156-86-33 05:20:00 Test Item Value Reference Range Interpretation Comments Monocytes # (test code = Monocytes #) 0.4 <=0.8 [facility] CenterFgfdfttRTVNVRAFCN1292-69-25 05:20:00 Test Item Value Reference Range Interpretation Comments Lymphocytes (test code = Lymphocytes) 8.6 20.0-40.0 [facility] CenterWqfqzjrLTPWKDNWFG7060-62-57 05:20:00 Test Item Value Reference Range Interpretation Comments RBC Morph (test code = Normal (02/11/17 12:20 RBC Morph) AM) [facility]yhnscyTVOTYVYQLU4413-70-89 05:20:00 Test Item Value Reference Range Interpretation Comments Segs (test code = Segs) 88.6 45.0-75.0 [facility] BcpraviXZRTEBTEHC4669-46-49 05:20:00 Test Item Value Reference Range Interpretation Comments Plt Morph (test code = Normal (02/11/17 12:20 Plt Morph) AM) [facility] AND [id number] 05:20:00 Test Item Value Reference Range Interpretation Comments UA Urobilinogen (test code = UA 2.0 0.1-1.0 Urobilinogen) [facility] AND [id number] 05:20:00 Test Item Value Reference Range Interpretation Comments UA Nitrite (test code Negative (02/11/17 12:20 = UA Nitrite) AM) [facility] AND [id number] 05:20:00 Test Item Value Reference Range Interpretation Comments UA Blood (test code = Moderate *ABN*(02/11/17 UA Blood) 12:20 AM) [facility] AND [id number] 05:20:00 Test Item Value Reference Range Interpretation Comments UA Leuk Est (test Negative (02/11/17 12:20 code = UA Leuk Est) AM) [facility] AND [id number] 05:20:00 Test Item Value Reference Range Interpretation Comments UA Color (test code = Yellow *NA*(02/11/17 UA Color) 12:20 AM) [facility] AND [id number] 05:20:00 Test Item Value Reference Range Interpretation Comments UA Turbidity (test code Slight *ABN*(02/11/17 = UA Turbidity) 12:20 AM) [facility] AND [id number] 05:20:00 Test Item Value Reference Range Interpretation Comments UA RBC (test code = UA RBC) 26 <=2 [facility] AND [id number] 05:20:00 Test Item Value Reference Range Interpretation Comments UA WBC (test code = UA WBC) 2 <=5 [facility] [id number] 05:20:00 Test Item Value Reference Range Interpretation Comments UA Mucus (test code = UA Mucus) Few /LPF [facility] AND [id number] 05:20:00 Test Item Value Reference Range Interpretation Comments UA Bacteria (test code = UA Occasional /HPF Bacteria) [facility] [id number] 05:20:00 Test Item Value Reference Range Interpretation Comments UA Sq Epi (test code = UA Sq Occasional /LPF Epi) [facility] [id number] 05:20:00 Test Item Value Reference Range Interpretation Comments UA Ketones (test code = UA Ketones) 80 mg/dL [facility] [id number] 05:20:00 Test Item Value Reference Range Interpretation Comments UA Bili (test code = Negative *NA*(02/11/17 UA Bili) 12:20 AM) [facility] AND [id number] 05:20:00 Test Item Value Reference Range Interpretation Comments UA Spec Grav (test code = UA Spec Grav) 1.017 [facility] AND [id number] 05:20:00 Test Item Value Reference Range Interpretation Comments UA Glucose (test code = UA Negative mg/dL Glucose) [facility] AND [id number] 05:20:00 Test Item Value Reference Range Interpretation Comments UA Protein (test code = UA Negative mg/dL Protein) [facility] [id number] 05:20:00 Test Item Value Reference Range Interpretation Comments UA pH (test code = UA pH) 8.0 5.0-8.0 [facility] [id number] 05:20:00 Test Item Value Reference Range Interpretation Comments U Preg (test code = U Negative (02/11/17 12:20 Preg) AM) [facility] [id number] 05:20:00 Test Item Value Reference Range Interpretation Comments eGFR (test code = eGFR) 82 [facility] [id number] 05:20:00 Test Item Value Reference Range Interpretation Comments Albumin Lvl (test code = Albumin Lvl) 3.8 3.5-5.0 [facility] [id number] 05:20:00 Test Item Value Reference Range Interpretation Comments Globulin (test code = Globulin) 4.6 2.7-4.2 [facility] [id number] 05:20:00 Test Item Value Reference Range Interpretation Comments AST (test code = AST) 11 See_Comment [Auto mated message] The system which ge nerated this result transmit rohit reference range : <=37. The reference range was not used to interpr et this result as flor l/abnormal. [facility]2017-07-16 05:20:00 Test Item Value Reference Range Interpretation Comments ALT (test code = ALT) 34 See_Comment [Auto mated message] The system which ge nerated this result transmit rohit reference range : <=65. The reference range was not used to interpr et this result as flor l/abnormal. [facility]2017-07-16 05:20:00 Test Item Value Reference Range Interpretation Comments Alk Phos (test code = Alk Phos) 65 39-136 [facility]2017-07-16 05:20:00 Test Item Value Reference Range Interpretation Comments Bili Total (test code = Bili Total) 0.6 0.2-1.3 [facility]2017-07-16 05:20:00 Test Item Value Reference Range Interpretation Comments Sodium Lvl (test code = Sodium Lvl) 138 135-145 [facility]2017-07-16 05:20:00 Test Item Value Reference Range Interpretation Comments Potassium Lvl (test code = Potassium 2.6 3.5-5.1 Lvl) [facility]2017-07-16 05:20:00 Test Item Value Reference Range Interpretation Comments Creatinine Lvl (test code = Creatinine 0.99 0.50-1.40 Lvl) [facility]2017-07-16 05:20:00 Test Item Value Reference Range Interpretation Comments Glucose Lvl (test code = Glucose Lvl) 107 70-99 [facility]2017-07-16 05:20:00 Test Item Value Reference Range Interpretation Comments BUN (test code = BUN) 8 7-22 [facility]2017-07-16 05:20:00 Test Item Value Reference Range Interpretation Comments B/C Ratio (test code = B/C Ratio) 8 6-25 [facility]2017-07-16 05:20:00 Test Item Value Reference Range Interpretation Comments AGAP (test code = AGAP) 15.6 10.0-20.0 [facility]2017-07-16 05:20:00 Test Item Value Reference Range Interpretation Comments Calcium Lvl (test code = Calcium Lvl) 8.9 8.5-10.5 [facility]2017-07-16 05:20:00 Test Item Value Reference Range Interpretation Comments Chloride Lvl (test code = Chloride Lvl) 102 95-109 [facility]2017-07-16 05:20:00 Test Item Value Reference Range Interpretation Comments CO2 (test code = CO2) 23 24-32 [facility]2017-07-16 05:20:00 Test Item Value Reference Range Interpretation Comments Total Protein (test code = Total 8.4 6.4-8.4 Protein) [facility]2017-07-16 05:20:00 Test Item Value Reference Range Interpretation Comments A/G Ratio (test code = A/G Ratio) 0.8 0.7-1.6 [facility]2017-07-16 05:20:00 Test Item Value Reference Range Interpretation Comments Lipase Lvl (test code = Lipase Lvl) 79 73-393 [facility]2017-07-16 05:20:00 Test Item Value Reference Range Interpretation Comments Amylase Lvl (test code = Amylase Lvl) 28 25-115 [facility] CenterLthvgdbEMPLRSUUQI5807-98-01 05:20:00 Test Item Value Reference Range Interpretation Comments WBC (test code = WBC) 15.2 3.7-10.4 [facility] CenterYjwkmvgNUNWGEQIQB2399-53-72 05:20:00 Test Item Value Reference Range Interpretation Comments RBC (test code = RBC) 5.38 4.20-5.40 [facility] CenterFgvcsooIQIYWDGBDH2788-23-42 05:20:00 Test Item Value Reference Range Interpretation Comments MCV (test code = MCV) 85.3 80.0-98.0 [facility] CenterKdjrmuiVYTFOCEIEN6320-36-64 05:20:00 Test Item Value Reference Range Interpretation Comments Hct (test code = Hct) 45.9 36.0-48.0 [facility] CenterNsfpuspTJOCEJUOKM8145-06-50 05:20:00 Test Item Value Reference Range Interpretation Comments Hgb (test code = Hgb) 15.0 12.0-16.0 [facility] CenterMoqykpkNHCWEYZWQI2650-21-67 05:20:00 Test Item Value Reference Range Interpretation Comments MCHC (test code = MCHC) 32.8 32.0-36.0 [facility] CenterVfinzkgCLNXCLWFSA9232-91-02 05:20:00 Test Item Value Reference Range Interpretation Comments MCH (test code = MCH) 27.9 pg 27.0-31.0 [facility] CenterBgypedzCSPRAXTHUP5388-47-27 05:20:00 Test Item Value Reference Range Interpretation Comments MPV (test code = MPV) 9.1 7.4-10.4 [facility] CenterTdanlwfPUCUPQGUTT2438-80-61 05:20:00 Test Item Value Reference Range Interpretation Comments Platelet (test code = Platelet) 455 133-450 [facility] CenterNcdwthiJTNHAIATSS2540-08-66 05:20:00 Test Item Value Reference Range Interpretation Comments RDW (test code = RDW) 13.0 11.5-14.5 [facility] CenterNyossnzLXTVPLVICE4046-69-14 05:20:00 Test Item Value Reference Range Interpretation Comments Basophils (test code = 0.0 See_Comment [Aut omated message] The Basophils) system which ge nerated this result tra nsmitted reference range : <=1.0. The reference r nikki was not used to int erpret this result as normal/abnormal . [facility] CenterEjjgcppKQEURFVIFD0100-47-34 05:20:00 Test Item Value Reference Range Interpretation Comments Eosinophils (test code = 0.0 See_Comment [A utomated message] The Eosinophils) system which ge nerated this result tra nsmitted reference range : <=4.0. The reference r nikki was not used to int erpret this result as normal/abnormal . [facility] CenterUiqlgvzQWRJELYMIT0820-89-36 05:20:00 Test Item Value Reference Range Interpretation Comments Lymphocytes # (test code = Lymphocytes 1.3 1.0-5.5 #) [facility] CenterAphrxqiUJFZLVMCCR2860-94-74 05:20:00 Test Item Value Reference Range Interpretation Comments Segs-Bands # (test code = Segs-Bands #) 13.5 1.5-8.1 [facility] CenterZacopoiCAKXMJTQVO3651-04-28 05:20:00 Test Item Value Reference Range Interpretation Comments Monocytes (test code = Monocytes) 2.8 2.0-12.0 [facility] CenterGytennfHSHPZXJWKM3101-34-12 05:20:00 Test Item Value Reference Range Interpretation Comments Basophils # (test code 0.0 See_Comment [Aut omated message] The = Basophils #) system which generated this result tra nsmitted reference range : <=0.2. The reference r nikki was not used to int erpret this result as normal/abnormal . [facility] CenterSgghxowACUARATMKC1484-19-19 05:20:00 Test Item Value Reference Range Interpretation Comments Eosinophils # (test code 0.0 See_Comment [A utomated message] The = Eosinophils #) system whic h generated this result tra nsmitted reference range : <=0.5. The reference r nikki was not used to int erpret this result as normal/abnormal . [facility] CenterTlvxtjhUKZYCPKMGP7857-00-39 05:20:00 Test Item Value Reference Range Interpretation Comments Monocytes # (test code 0.4 See_Comment [Aut omated message] The = Monocytes #) system which generated this result tra nsmitted reference range : <=0.8. The reference r nikki was not used to int erpret this result as normal/abnormal . [facility] CenterCapjvixQRDOQKSKOY2625-29-56 05:20:00 Test Item Value Reference Range Interpretation Comments Lymphocytes (test code = Lymphocytes) 8.6 20.0-40.0 [facility] CenterHlceuscJRMUDCWYNM7538-31-33 05:20:00 Test Item Value Reference Range Interpretation Comments RBC Morph (test code = Normal (02/11/17 12:20 RBC Morph) AM) [facility] CenterXaosoyoMFUWTBVECT9979-01-88 05:20:00 Test Item Value Reference Range Interpretation Comments Segs (test code = Segs) 88.6 45.0-75.0 [facility] CenterKdkfxxpJPZWGOOJAS5418-97-71 05:20:00 Test Item Value Reference Range Interpretation Comments Plt Morph (test code = Normal (02/11/17 12:20 Plt Morph) AM) [facility] AND [id number] 05:20:00 Test Item Value Reference Range Interpretation Comments UA Urobilinogen (test code = UA 2.0 0.1-1.0 Urobilinogen) [facility] AND [id number] 05:20:00 Test Item Value Reference Range Interpretation Comments UA Nitrite (test code Negative (02/11/17 12:20 = UA Nitrite) AM) [facility]2017-07-16 05:20:00 Test Item Value Reference Range Interpretation Comments UA Blood (test code = Moderate *ABN*(02/11/17 UA Blood) 12:20 AM) [facility] [id number] 05:20:00 Test Item Value Reference Range Interpretation Comments UA Leuk Est (test Negative (02/11/17 12:20 code = UA Leuk Est) AM) [facility] [id number] 05:20:00 Test Item Value Reference Range Interpretation Comments UA Color (test code = Yellow *NA*(02/11/17 UA Color) 12:20 AM) [facility] [id number] 05:20:00 Test Item Value Reference Range Interpretation Comments UA Turbidity (test code Slight *ABN*(02/11/17 = UA Turbidity) 12:20 AM) [facility] AND [id number] 05:20:00 Test Item Value Reference Range Interpretation Comments UA RBC (test code = 26 See_Comment [Automa rohit message] The UA RBC) system which ge nerated this result transmit rohit reference range : <=2. The reference range was not used to interpr et this result as flor l/abnormal. [facility] AND [id number] 05:20:00 Test Item Value Reference Range Interpretation Comments UA WBC (test code = 2 See_Comment [Automa rohit message] The UA WBC) system which ge nerated this result transmit rohit reference range : <=5. The reference range was not used to interpr et this result as flor l/abnormal. [facility] AND [id number] 05:20:00 Test Item Value Reference Range Interpretation Comments UA Mucus (test code = UA Mucus) Few /LPF [facility] AND [id number] 05:20:00 Test Item Value Reference Range Interpretation Comments UA Bacteria (test code = UA Occasional /HPF Bacteria) [facility] AND [id number] 05:20:00 Test Item Value Reference Range Interpretation Comments UA Sq Epi (test code = UA Sq Occasional /LPF Epi) [facility] AND [id number] 05:20:00 Test Item Value Reference Range Interpretation Comments UA Ketones (test code = UA Ketones) 80 mg/dL [facility] AND [id number] 05:20:00 Test Item Value Reference Range Interpretation Comments UA Bili (test code = Negative *NA*(02/11/17 UA Bili) 12:20 AM) [facility] AND [id number] 05:20:00 Test Item Value Reference Range Interpretation Comments UA Spec Grav (test code = UA Spec Grav) 1.017 [facility] AND [id number] 05:20:00 Test Item Value Reference Range Interpretation Comments UA Glucose (test code = UA Negative mg/dL Glucose) [facility] AND [id number] 05:20:00 Test Item Value Reference Range Interpretation Comments UA Protein (test code = UA Negative mg/dL Protein) [facility] AND [id number] 05:20:00 Test Item Value Reference Range Interpretation Comments UA pH (test code = UA pH) 8.0 5.0-8.0 [facility] [id number] 05:20:00 Test Item Value Reference Range Interpretation Comments U Preg (test code = U Negative (02/11/17 12:20 Preg) AM) [facility] [id number] 05:20:00 Test Item Value Reference Range Interpretation Comments eGFR (test code = eGFR) 82 [facility]2017-07-16 05:20:00 Test Item Value Reference Range Interpretation Comments Albumin Lvl (test code = Albumin Lvl) 3.8 3.5-5.0 [facility]2017-07-16 05:20:00 Test Item Value Reference Range Interpretation Comments Globulin (test code = Globulin) 4.6 2.7-4.2 [facility]2017-07-16 05:20:00 Test Item Value Reference Range Interpretation Comments AST (test code = AST) 11 See_Comment [Auto mated message] The system which ge nerated this result transmit rohit reference range : <=37. The reference range was not used to interpr et this result as flor l/abnormal. [facility] [id number] 05:20:00 Test Item Value Reference Range Interpretation Comments ALT (test code = ALT) 34 See_Comment [Auto mated message] The system which ge nerated this result transmit rohit reference range : <=65. The reference range was not used to interpr et this result as flor l/abnormal. [facility] [facility] [id number] 05:20:00 Test Item Value Reference Range Interpretation Comments Alk Phos (test code = Alk Phos) 65 39-136 [facility]2017-07-16 05:20:00 Test Item Value Reference Range Interpretation Comments Bili Total (test code = Bili Total) 0.6 0.2-1.3 [facility]2017-07-16 05:20:00 Test Item Value Reference Range Interpretation Comments Sodium Lvl (test code = Sodium Lvl) 138 135-145 [facility]2017-07-16 05:20:00 Test Item Value Reference Range Interpretation Comments Potassium Lvl (test code = Potassium 2.6 3.5-5.1 Lvl) [facility]2017-07-16 05:20:00 Test Item Value Reference Range Interpretation Comments Creatinine Lvl (test code = Creatinine 0.99 0.50-1.40 Lvl) [facility]2017-07-16 05:20:00 Test Item Value Reference Range Interpretation Comments Glucose Lvl (test code = Glucose Lvl) 107 70-99 [facility]2017-07-16 05:20:00 Test Item Value Reference Range Interpretation Comments BUN (test code = BUN) 8 7-22 [facility]2017-07-16 05:20:00 Test Item Value Reference Range Interpretation Comments B/C Ratio (test code = B/C Ratio) 8 6-25 [facility]2017-07-16 05:20:00 Test Item Value Reference Range Interpretation Comments AGAP (test code = AGAP) 15.6 10.0-20.0 [facility]2017-07-16 05:20:00 Test Item Value Reference Range Interpretation Comments Calcium Lvl (test code = Calcium Lvl) 8.9 8.5-10.5 [facility]2017-07-16 05:20:00 Test Item Value Reference Range Interpretation Comments Chloride Lvl (test code = Chloride Lvl) 102 95-109 [facility]2017-07-16 05:20:00 Test Item Value Reference Range Interpretation Comments CO2 (test code = CO2) 23 24-32 [facility]2017-07-16 05:20:00 Test Item Value Reference Range Interpretation Comments Total Protein (test code = Total 8.4 6.4-8.4 Protein) [facility]2017-07-16 05:20:00 Test Item Value Reference Range Interpretation Comments A/G Ratio (test code = A/G Ratio) 0.8 0.7-1.6 [facility]2017-07-16 05:20:00 Test Item Value Reference Range Interpretation Comments Lipase Lvl (test code = Lipase Lvl) 79 73-393 [facility]2017-07-16 05:20:00 Test Item Value Reference Range Interpretation Comments Amylase Lvl (test code = Amylase Lvl) 28 25-115 [facility]XxvyeziYRDCPGNMXZ3286-65-73 05:20:00 Test Item Value Reference Range Interpretation Comments WBC (test code = WBC) 15.2 3.7-10.4 [facility] CenterAlowustLJKFXVPRBE5888-79-86 05:20:00 Test Item Value Reference Range Interpretation Comments RBC (test code = RBC) 5.38 4.20-5.40 [facility]QqdjddqIMRFXNQXSJ6965-60-27 05:20:00 Test Item Value Reference Range Interpretation Comments MCV (test code = MCV) 85.3 80.0-98.0 [facility] CenterLutqjssPBTUCIRUJZ6809-91-07 05:20:00 Test Item Value Reference Range Interpretation Comments Hct (test code = Hct) 45.9 36.0-48.0 [facility] CenterFeapvsgSYBUSRIMGJ5111-11-05 05:20:00 Test Item Value Reference Range Interpretation Comments Hgb (test code = Hgb) 15.0 12.0-16.0 [facility] CenterRsehhpwDOVPYZNFSO9241-84-69 05:20:00 Test Item Value Reference Range Interpretation Comments MCHC (test code = MCHC) 32.8 32.0-36.0 [facility] CenterZfthhouRIRASZDKSC3008-44-38 05:20:00 Test Item Value Reference Range Interpretation Comments MCH (test code = MCH) 27.9 pg 27.0-31.0 [facility] CenterZorbnqgHXYFYUMKYG9587-11-80 05:20:00 Test Item Value Reference Range Interpretation Comments MPV (test code = MPV) 9.1 7.4-10.4 [facility] CenterTzrhhmrWXYYLOJWIW7643-15-29 05:20:00 Test Item Value Reference Range Interpretation Comments Platelet (test code = Platelet) 455 133-450 [facility] CenterJofoijrEOLIYMYVEH2979-62-89 05:20:00 Test Item Value Reference Range Interpretation Comments RDW (test code = RDW) 13.0 11.5-14.5 [facility] CenterBzzyartGJOOLZNDZG0756-05-07 05:20:00 Test Item Value Reference Range Interpretation Comments Basophils (test code = 0.0 See_Comment [Aut omated message] The Basophils) system which ge nerated this result tra nsmitted reference range : <=1.0. The reference r nikki was not used to int erpret this result as normal/abnormal . [facility] CenterUtoysjbFBWSTSTEJS2499-25-82 05:20:00 Test Item Value Reference Range Interpretation Comments Eosinophils (test code = 0.0 See_Comment [A utomated message] The Eosinophils) system which ge nerated this result tra nsmitted reference range : <=4.0. The reference r nikki was not used to int erpret this result as normal/abnormal . [facility] CenterFrhnkrwQBVHSXZSIX8906-11-02 05:20:00 Test Item Value Reference Range Interpretation Comments Lymphocytes # (test code = Lymphocytes 1.3 1.0-5.5 #) [facility] CenterDukjqtbRTWEHEHHDO1490-41-48 05:20:00 Test Item Value Reference Range Interpretation Comments Segs-Bands # (test code = Segs-Bands #) 13.5 1.5-8.1 [facility] CenterLkxrthvVDHJFDNTZN3098-70-93 05:20:00 Test Item Value Reference Range Interpretation Comments Monocytes (test code = Monocytes) 2.8 2.0-12.0 [facility] CenterClykzbbONVVXYQCPI9660-63-48 05:20:00 Test Item Value Reference Range Interpretation Comments Basophils # (test code 0.0 See_Comment [Aut omated message] The = Basophils #) system which generated this result tra nsmitted reference range : <=0.2. The reference r nikki was not used to int erpret this result as normal/abnormal . [facility] CenterPjllaqfOAHZZXZIKX7634-87-71 05:20:00 Test Item Value Reference Range Interpretation Comments Eosinophils # (test code 0.0 See_Comment [A utomated message] The = Eosinophils #) system whic h generated this result tra nsmitted reference range : <=0.5. The reference r nikki was not used to int erpret this result as normal/abnormal . [facility] CenterHwrrvnoQUXLHXEEBF7879-20-00 05:20:00 Test Item Value Reference Range Interpretation Comments Monocytes # (test code 0.4 See_Comment [Aut omated message] The = Monocytes #) system which generated this result tra nsmitted reference range : <=0.8. The reference r nikki was not used to int erpret this result as normal/abnormal . [facility] CenterRdjxloiZKFWHHZZJA5085-07-21 05:20:00 Test Item Value Reference Range Interpretation Comments Lymphocytes (test code = Lymphocytes) 8.6 20.0-40.0 [facility] CenterXtmvvzdHLWJZPLPWD1414-76-77 05:20:00 Test Item Value Reference Range Interpretation Comments RBC Morph (test code = Normal (02/11/17 12:20 RBC Morph) AM) [facility] CenterEbtmjfmLENTRYKLBZ2252-72-71 05:20:00 Test Item Value Reference Range Interpretation Comments Segs (test code = Segs) 88.6 45.0-75.0 [facility] CenterKkamcrpKKKGGDWQEM8916-51-01 05:20:00 Test Item Value Reference Range Interpretation Comments Plt Morph (test code = Normal (02/11/17 12:20 Plt Morph) AM) [facility] AND [id number] 05:20:00 Test Item Value Reference Range Interpretation Comments UA Urobilinogen (test code = UA 2.0 0.1-1.0 Urobilinogen) [facility] AND [id number] 05:20:00 Test Item Value Reference Range Interpretation Comments UA Nitrite (test code Negative (02/11/17 12:20 = UA Nitrite) AM) [facility] AND [id number] 05:20:00 Test Item Value Reference Range Interpretation Comments UA Blood (test code = Moderate *ABN*(02/11/17 UA Blood) 12:20 AM) [facility] AND [id number] 05:20:00 Test Item Value Reference Range Interpretation Comments UA Leuk Est (test Negative (02/11/17 12:20 code = UA Leuk Est) AM) [facility] AND [id number] 05:20:00 Test Item Value Reference Range Interpretation Comments UA Color (test code = Yellow *NA*(02/11/17 UA Color) 12:20 AM) [facility] AND [id number] 05:20:00 Test Item Value Reference Range Interpretation Comments UA Turbidity (test code Slight *ABN*(02/11/17 = UA Turbidity) 12:20 AM) [facility] AND [id number] 05:20:00 Test Item Value Reference Range Interpretation Comments UA RBC (test code = 26 See_Comment [Automa rohit message] The UA RBC) system which ge nerated this result transmit rohit reference range : <=2. The reference range was not used to interpr et this result as flor l/abnormal. [facility] AND [id number] 05:20:00 Test Item Value Reference Range Interpretation Comments UA WBC (test code = 2 See_Comment [Automa rohit message] The UA WBC) system which ge nerated this result transmit rohit reference range : <=5. The reference range was not used to interpr et this result as flor l/abnormal. [facility] AND [id number] 05:20:00 Test Item Value Reference Range Interpretation Comments UA Mucus (test code = UA Mucus) Few /LPF [facility] AND [id number] 05:20:00 Test Item Value Reference Range Interpretation Comments UA Bacteria (test code = UA Occasional /HPF Bacteria) [facility] AND [id number] 05:20:00 Test Item Value Reference Range Interpretation Comments UA Sq Epi (test code = UA Sq Occasional /LPF Epi) [facility] AND [id number] 05:20:00 Test Item Value Reference Range Interpretation Comments UA Ketones (test code = UA Ketones) 80 mg/dL [facility] AND [id number] 05:20:00 Test Item Value Reference Range Interpretation Comments UA Bili (test code = Negative *NA*(02/11/17 UA Bili) 12:20 AM) [facility] AND [id number] 05:20:00 Test Item Value Reference Range Interpretation Comments UA Spec Grav (test code = UA Spec Grav) 1.017 [facility] AND [id number] 05:20:00 Test Item Value Reference Range Interpretation Comments UA Glucose (test code = UA Negative mg/dL Glucose) [facility] AND [id number] 05:20:00 Test Item Value Reference Range Interpretation Comments UA Protein (test code = UA Negative mg/dL Protein) [facility] AND [id number] 05:20:00 Test Item Value Reference Range Interpretation Comments UA pH (test code = UA pH) 8.0 5.0-8.0 [id number] 05:20:00 Test Item Value Reference Range Interpretation Comments U Preg (test code = U Negative (02/11/17 12:20 Preg) AM) [facility] [id number] 05:20:00 Test Item Value Reference Range Interpretation Comments eGFR (test code = eGFR) 82 [facility]2017-07-16 05:20:00 Test Item Value Reference Range Interpretation Comments Albumin Lvl (test code = Albumin Lvl) 3.8 3.5-5.0 [facility]2017-07-16 05:20:00 Test Item Value Reference Range Interpretation Comments Globulin (test code = Globulin) 4.6 2.7-4.2 [facility]2017-07-16 05:20:00 Test Item Value Reference Range Interpretation Comments AST (test code = AST) 11 See_Comment [Auto mated message] The system which ge nerated this result transmit rohit reference range : <=37. The reference range was not used to interpr et this result as flor l/abnormal. [facility]2017-07-16 05:20:00 Test Item Value Reference Range Interpretation Comments ALT (test code = ALT) 34 See_Comment [Auto mated message] The system which ge nerated this result transmit rohit reference range : <=65. The reference range was not used to interpr et this result as flor l/abnormal. [facility]2017-07-16 05:20:00 Test Item Value Reference Range Interpretation Comments Alk Phos (test code = Alk Phos) 65 39-136 [facility]2017-07-16 05:20:00 Test Item Value Reference Range Interpretation Comments Bili Total (test code = Bili Total) 0.6 0.2-1.3 [facility]2017-07-16 05:20:00 Test Item Value Reference Range Interpretation Comments Sodium Lvl (test code = Sodium Lvl) 138 135-145 [facility]2017-07-16 05:20:00 Test Item Value Reference Range Interpretation Comments Potassium Lvl (test code = Potassium 2.6 3.5-5.1 Lvl) [facility]2017-07-16 05:20:00 Test Item Value Reference Range Interpretation Comments Creatinine Lvl (test code = Creatinine 0.99 0.50-1.40 Lvl) [facility]2017-07-16 05:20:00 Test Item Value Reference Range Interpretation Comments Glucose Lvl (test code = Glucose Lvl) 107 70-99 [facility]2017-07-16 05:20:00 Test Item Value Reference Range Interpretation Comments BUN (test code = BUN) 8 7-22 [facility]2017-07-16 05:20:00 Test Item Value Reference Range Interpretation Comments B/C Ratio (test code = B/C Ratio) 8 6-25 [facility]2017-07-16 05:20:00 Test Item Value Reference Range Interpretation Comments AGAP (test code = AGAP) 15.6 10.0-20.0 [facility]2017-07-16 05:20:00 Test Item Value Reference Range Interpretation Comments Calcium Lvl (test code = Calcium Lvl) 8.9 8.5-10.5 [facility]2017-07-16 05:20:00 Test Item Value Reference Range Interpretation Comments Chloride Lvl (test code = Chloride Lvl) 102 95-109 [facility]2017-07-16 05:20:00 Test Item Value Reference Range Interpretation Comments CO2 (test code = CO2) 23 24-32 [facility]2017-07-16 05:20:00 Test Item Value Reference Range Interpretation Comments Total Protein (test code = Total 8.4 6.4-8.4 Protein) [facility]2017-07-16 05:20:00 Test Item Value Reference Range Interpretation Comments A/G Ratio (test code = A/G Ratio) 0.8 0.7-1.6 [facility]2017-07-16 05:20:00 Test Item Value Reference Range Interpretation Comments Lipase Lvl (test code = Lipase Lvl) 79 73-393 [facility]2017-07-16 05:20:00 Test Item Value Reference Range Interpretation Comments Amylase Lvl (test code = Amylase Lvl) 28 25-115 [facility] CenterNomtjdxTXRXFKDRAS0251-52-49 05:20:00 Test Item Value Reference Range Interpretation Comments WBC (test code = WBC) 15.2 3.7-10.4 [facility] CenterVosdnxdRSJZPPBEML8339-42-81 05:20:00 Test Item Value Reference Range Interpretation Comments RBC (test code = RBC) 5.38 4.20-5.40 [facility] CenterDsbalabTAQRZENXDZ2170-61-28 05:20:00 Test Item Value Reference Range Interpretation Comments MCV (test code = MCV) 85.3 80.0-98.0 [facility] CenterGqnxsrqBDABBSCFXH3398-18-91 05:20:00 Test Item Value Reference Range Interpretation Comments Hct (test code = Hct) 45.9 36.0-48.0 [facility] CenterRawwqmxFSMSCWFRFZ7264-39-46 05:20:00 Test Item Value Reference Range Interpretation Comments Hgb (test code = Hgb) 15.0 12.0-16.0 [facility] CenterHhlvlvhGGAVRTAXRC0953-53-40 05:20:00 Test Item Value Reference Range Interpretation Comments MCHC (test code = MCHC) 32.8 32.0-36.0 [facility] CenterXslntwcSPBPIPQZLE2799-93-02 05:20:00 Test Item Value Reference Range Interpretation Comments MCH (test code = MCH) 27.9 pg 27.0-31.0 [facility] CenterCnagpncZFGIDWNRXB9186-57-83 05:20:00 Test Item Value Reference Range Interpretation Comments MPV (test code = MPV) 9.1 7.4-10.4 [facility] CenterTowrctdENBPXEERXU8826-14-55 05:20:00 Test Item Value Reference Range Interpretation Comments Platelet (test code = Platelet) 455 133-450 [facility] CenterVuhwsxeVHOKMQRUCB0542-90-12 05:20:00 Test Item Value Reference Range Interpretation Comments RDW (test code = RDW) 13.0 11.5-14.5 [facility] CenterLvgwolgTKCXOJVMDU3595-49-79 05:20:00 Test Item Value Reference Range Interpretation Comments Basophils (test code = 0.0 See_Comment [Aut omated message] The Basophils) system which ge nerated this result tra nsmitted reference range : <=1.0. The reference r nikki was not used to int erpret this result as normal/abnormal . [facility] CenterZpanxpgPJTPJEXSHK7859-69-15 05:20:00 Test Item Value Reference Range Interpretation Comments Eosinophils (test code = 0.0 See_Comment [A utomated message] The Eosinophils) system which ge nerated this result tra nsmitted reference range : <=4.0. The reference r nikki was not used to int erpret this result as normal/abnormal . [facility] CenterMmflgwmCWNCSRMJKG0707-68-35 05:20:00 Test Item Value Reference Range Interpretation Comments Lymphocytes # (test code = Lymphocytes 1.3 1.0-5.5 #) [facility] CenterVbczntiJSNEWWPZNT4542-11-83 05:20:00 Test Item Value Reference Range Interpretation Comments Segs-Bands # (test code = Segs-Bands #) 13.5 1.5-8.1 [facility] CenterOxnfkrfLWNFKQUVCK4054-85-04 05:20:00 Test Item Value Reference Range Interpretation Comments Monocytes (test code = Monocytes) 2.8 2.0-12.0 [facility] CenterKcqqihfWFXWSWGASC8447-89-14 05:20:00 Test Item Value Reference Range Interpretation Comments Basophils # (test code 0.0 See_Comment [Aut omated message] The = Basophils #) system which generated this result tra nsmitted reference range : <=0.2. The reference r nikki was not used to int erpret this result as normal/abnormal . [facility] CenterWvzwrwsVGFNLUTHVP2641-42-00 05:20:00 Test Item Value Reference Range Interpretation Comments Eosinophils # (test code 0.0 See_Comment [A utomated message] The = Eosinophils #) system whic h generated this result tra nsmitted reference range : <=0.5. The reference r nikki was not used to int erpret this result as normal/abnormal . [facility] CenterZpwlkdoMKYCOXLKXP8592-86-26 05:20:00 Test Item Value Reference Range Interpretation Comments Monocytes # (test code 0.4 See_Comment [Aut omated message] The = Monocytes #) system which generated this result tra nsmitted reference range : <=0.8. The reference r nikki was not used to int erpret this result as normal/abnormal . [facility] CenterKgdcvvcDYTWKROVXV4286-80-24 05:20:00 Test Item Value Reference Range Interpretation Comments Lymphocytes (test code = Lymphocytes) 8.6 20.0-40.0 [facility] CenterQizyapzRREYPSREGO1684-24-40 05:20:00 Test Item Value Reference Range Interpretation Comments RBC Morph (test code = Normal (02/11/17 12:20 RBC Morph) AM) [facility] CenterYyazcryYOROMTSMNP1267-85-28 05:20:00 Test Item Value Reference Range Interpretation Comments Segs (test code = Segs) 88.6 45.0-75.0 [facility] CenterDxflsfaBYGACKBNFY1715-73-63 05:20:00 Test Item Value Reference Range Interpretation Comments Plt Morph (test code = Normal (02/11/17 12:20 Plt Morph) AM) [facility] AND [id number] 05:20:00 Test Item Value Reference Range Interpretation Comments UA Urobilinogen (test code = UA 2.0 0.1-1.0 Urobilinogen) [facility] AND [id number] 05:20:00 Test Item Value Reference Range Interpretation Comments UA Nitrite (test code Negative (02/11/17 12:20 = UA Nitrite) AM) [facility] AND [id number] 05:20:00 Test Item Value Reference Range Interpretation Comments UA Blood (test code = Moderate *ABN*(02/11/17 UA Blood) 12:20 AM) [facility] AND [id number] 05:20:00 Test Item Value Reference Range Interpretation Comments UA Leuk Est (test Negative (02/11/17 12:20 code = UA Leuk Est) AM) [facility] AND [id number] 05:20:00 Test Item Value Reference Range Interpretation Comments UA Color (test code = Yellow *NA*(02/11/17 UA Color) 12:20 AM) [facility] AND [id number] 05:20:00 Test Item Value Reference Range Interpretation Comments UA Turbidity (test code Slight *ABN*(02/11/17 = UA Turbidity) 12:20 AM) [facility] AND [id number] 05:20:00 Test Item Value Reference Range Interpretation Comments UA RBC (test code = 26 See_Comment [Automa rohit message] The UA RBC) system which ge nerated this result transmit rohit reference range : <=2. The reference range was not used to interpr et this result as flor l/abnormal. [facility] AND [id number] 05:20:00 Test Item Value Reference Range Interpretation Comments UA WBC (test code = 2 See_Comment [Automa rohit message] The UA WBC) system which ge nerated this result transmit rohit reference range : <=5. The reference range was not used to interpr et this result as flor l/abnormal. [facility] AND [id number] 05:20:00 Test Item Value Reference Range Interpretation Comments UA Mucus (test code = UA Mucus) Few /LPF [facility] AND [id number] 05:20:00 Test Item Value Reference Range Interpretation Comments UA Bacteria (test code = UA Occasional /HPF Bacteria) [facility] AND [id number] 05:20:00 Test Item Value Reference Range Interpretation Comments UA Sq Epi (test code = UA Sq Occasional /LPF Epi) [facility] AND [id number] 05:20:00 Test Item Value Reference Range Interpretation Comments UA Ketones (test code = UA Ketones) 80 mg/dL [facility] AND [id number] 05:20:00 Test Item Value Reference Range Interpretation Comments UA Bili (test code = Negative *NA*(02/11/17 UA Bili) 12:20 AM) [facility] AND [id number] 05:20:00 Test Item Value Reference Range Interpretation Comments UA Spec Grav (test code = UA Spec Grav) 1.017 [facility] AND [id number] 05:20:00 Test Item Value Reference Range Interpretation Comments UA Glucose (test code = UA Negative mg/dL Glucose) [facility] AND [id number] 05:20:00 Test Item Value Reference Range Interpretation Comments UA Protein (test code = UA Negative mg/dL Protein) [facility] AND [id number] 05:20:00 Test Item Value Reference Range Interpretation Comments UA pH (test code = UA pH) 8.0 5.0-8.0 [facility] [id number] 05:20:00 Test Item Value Reference Range Interpretation Comments U Preg (test code = U Negative (02/11/17 12:20 Preg) AM) [facility] [id number] 05:20:00 Test Item Value Reference Range Interpretation Comments eGFR (test code = eGFR) 82 [facility]CHE[facility] [id number] 05:20:00 Test Item Value Reference Range Interpretation Comments Albumin Lvl (test code = Albumin Lvl) 3.8 3.5-5.0 [facility]2017-07-16 05:20:00 Test Item Value Reference Range Interpretation Comments Globulin (test code = Globulin) 4.6 2.7-4.2 [facility]2017-07-16 05:20:00 Test Item Value Reference Range Interpretation Comments AST (test code = AST) 11 See_Comment [Auto mated message] The system which ge nerated this result transmit rohit reference range : <=37. The reference range was not used to interpr et this result as flor l/abnormal. [facility]2017-07-16 05:20:00 Test Item Value Reference Range Interpretation Comments ALT (test code = ALT) 34 See_Comment [Auto mated message] The system which ge nerated this result transmit rohit reference range : <=65. The reference range was not used to interpr et this result as flor l/abnormal. [facility]2017-07-16 05:20:00 Test Item Value Reference Range Interpretation Comments Alk Phos (test code = Alk Phos) 65 39-136 [facility]2017-07-16 05:20:00 Test Item Value Reference Range Interpretation Comments Bili Total (test code = Bili Total) 0.6 0.2-1.3 [facility]2017-07-16 05:20:00 Test Item Value Reference Range Interpretation Comments Sodium Lvl (test code = Sodium Lvl) 138 135-145 [facility]2017-07-16 05:20:00 Test Item Value Reference Range Interpretation Comments Potassium Lvl (test code = Potassium 2.6 3.5-5.1 Lvl) [facility]2017-07-16 05:20:00 Test Item Value Reference Range Interpretation Comments Creatinine Lvl (test code = Creatinine 0.99 0.50-1.40 Lvl) [facility]2017-07-16 05:20:00 Test Item Value Reference Range Interpretation Comments Glucose Lvl (test code = Glucose Lvl) 107 70-99 [facility]2017-07-16 05:20:00 Test Item Value Reference Range Interpretation Comments BUN (test code = BUN) 8 7-22 [facility] [place]2017-07-16 05:20:00 Test Item Value Reference Range Interpretation Comments B/C Ratio (test code = B/C Ratio) 8 6-25 [facility] [place]2017-07-16 05:20:00 Test Item Value Reference Range Interpretation Comments AGAP (test code = AGAP) 15.6 10.0-20.0 [facility] [place]2017-07-16 05:20:00 Test Item Value Reference Range Interpretation Comments Calcium Lvl (test code = Calcium Lvl) 8.9 8.5-10.5 [facility] [place]2017-07-16 05:20:00 Test Item Value Reference Range Interpretation Comments Chloride Lvl (test code = Chloride Lvl) 102 95-109 [facility] [place]2017-07-16 05:20:00 Test Item Value Reference Range Interpretation Comments CO2 (test code = CO2) 23 24-32 [facility] [place]2017-07-16 05:20:00 Test Item Value Reference Range Interpretation Comments Total Protein (test code = Total 8.4 6.4-8.4 Protein) [facility] [place]2017-07-16 05:20:00 Test Item Value Reference Range Interpretation Comments A/G Ratio (test code = A/G Ratio) 0.8 0.7-1.6 [facility] [place]2017-07-16 05:20:00 Test Item Value Reference Range Interpretation Comments Lipase Lvl (test code = Lipase Lvl) 79 73-393 [facility] [place]2017-07-16 05:20:00 Test Item Value Reference Range Interpretation Comments Amylase Lvl (test code = Amylase Lvl) 28 25-115 [facility]hughaqPKZJLORQUC1868-52-12 05:20:00 Test Item Value Reference Range Interpretation Comments WBC (test code = WBC) 15.2 3.7-10.4 [facility]MnpumlwNMQCVFGATO2823-12-90 05:20:00 Test Item Value Reference Range Interpretation Comments RBC (test code = RBC) 5.38 4.20-5.40 [facility]SvkjohcGKGBCDEQME6998-35-30 05:20:00 Test Item Value Reference Range Interpretation Comments MCV (test code = MCV) 85.3 80.0-98.0 [facility] CenterJlwbfhaIUYZVBRCBT3465-77-57 05:20:00 Test Item Value Reference Range Interpretation Comments Hct (test code = Hct) 45.9 36.0-48.0 [facility] CenterCighhhkHPFFHZTQRX0033-19-28 05:20:00 Test Item Value Reference Range Interpretation Comments Hgb (test code = Hgb) 15.0 12.0-16.0 [facility] CenterVclxhcpJSWDMCHRJO3363-47-07 05:20:00 Test Item Value Reference Range Interpretation Comments MCHC (test code = MCHC) 32.8 32.0-36.0 [facility] CenterHtzvncjLPZNNASXVX2299-90-46 05:20:00 Test Item Value Reference Range Interpretation Comments MCH (test code = MCH) 27.9 pg 27.0-31.0 [facility] CenterXfetbzkYCPXEEMOCJ4954-75-44 05:20:00 Test Item Value Reference Range Interpretation Comments MPV (test code = MPV) 9.1 7.4-10.4 [facility] CenterNkzgusdNQJIXRFTQY1368-43-16 05:20:00 Test Item Value Reference Range Interpretation Comments Platelet (test code = Platelet) 455 133-450 [facility] CenterFkhrjwtFYBTNWVGXY4265-71-28 05:20:00 Test Item Value Reference Range Interpretation Comments RDW (test code = RDW) 13.0 11.5-14.5 [facility] CenterSjmluziGMDHVJIJHX4895-70-52 05:20:00 Test Item Value Reference Range Interpretation Comments Basophils (test code = 0.0 See_Comment [Aut omated message] The Basophils) system which ge nerated this result tra nsmitted reference range : <=1.0. The reference r nikki was not used to int erpret this result as normal/abnormal . [facility] CenterWrhsoqaEYDKCQSEVI5206-85-87 05:20:00 Test Item Value Reference Range Interpretation Comments Eosinophils (test code = 0.0 See_Comment [A utomated message] The Eosinophils) system which ge nerated this result tra nsmitted reference range : <=4.0. The reference r nikki was not used to int erpret this result as normal/abnormal . [facility] CenterWshmhbmBHSXELDIBG6470-54-55 05:20:00 Test Item Value Reference Range Interpretation Comments Lymphocytes # (test code = Lymphocytes 1.3 1.0-5.5 #) [facility] CenterPctfdscHABFKKMEEN0049-65-39 05:20:00 Test Item Value Reference Range Interpretation Comments Segs-Bands # (test code = Segs-Bands #) 13.5 1.5-8.1 [facility] CenterRxclilyGWRKWDFBUC7089-43-84 05:20:00 Test Item Value Reference Range Interpretation Comments Monocytes (test code = Monocytes) 2.8 2.0-12.0 [facility] CenterTzpbwdeWUGTVZGWGJ1463-59-26 05:20:00 Test Item Value Reference Range Interpretation Comments Basophils # (test code 0.0 See_Comment [Aut omated message] The = Basophils #) system which generated this result tra nsmitted reference range : <=0.2. The reference r nikki was not used to int erpret this result as normal/abnormal . [facility] CenterQpmhmgzXRRXJMFASJ0665-83-91 05:20:00 Test Item Value Reference Range Interpretation Comments Eosinophils # (test code 0.0 See_Comment [A utomated message] The = Eosinophils #) system whic h generated this result tra nsmitted reference range : <=0.5. The reference r nikki was not used to int erpret this result as normal/abnormal . [facility] CenterEaxznivZNMHZSZVTE2805-43-21 05:20:00 Test Item Value Reference Range Interpretation Comments Monocytes # (test code 0.4 See_Comment [Aut omated message] The = Monocytes #) system which generated this result tra nsmitted reference range : <=0.8. The reference r nikki was not used to int erpret this result as normal/abnormal . [facility] CenterMeirdtbXODWKDWJBC4787-74-94 05:20:00 Test Item Value Reference Range Interpretation Comments Lymphocytes (test code = Lymphocytes) 8.6 20.0-40.0 [facility] CenterLjbdbfvSOIRYXWQGG3648-42-25 05:20:00 Test Item Value Reference Range Interpretation Comments RBC Morph (test code = Normal (02/11/17 12:20 RBC Morph) AM) [facility] CenterLnjxbivWZRMRSLOJI5784-25-18 05:20:00 Test Item Value Reference Range Interpretation Comments Segs (test code = Segs) 88.6 45.0-75.0 [facility] CenterMjqxrdaBVTQQIVSPY7028-94-33 05:20:00 Test Item Value Reference Range Interpretation Comments Plt Morph (test code = Normal (02/11/17 12:20 Plt Morph) AM) [facility]2017-07-16 05:20:00 Test Item Value Reference Range Interpretation Comments UA Urobilinogen (test code = UA 2.0 0.1-1.0 Urobilinogen) [facility] AND [id number] 05:20:00 Test Item Value Reference Range Interpretation Comments UA Nitrite (test code Negative (02/11/17 12:20 = UA Nitrite) AM) [facility] AND [id number] 05:20:00 Test Item Value Reference Range Interpretation Comments UA Blood (test code = Moderate *ABN*(02/11/17 UA Blood) 12:20 AM) [facility] AND [id number] 05:20:00 Test Item Value Reference Range Interpretation Comments UA Leuk Est (test Negative (02/11/17 12:20 code = UA Leuk Est) AM) [facility] AND [id number] 05:20:00 Test Item Value Reference Range Interpretation Comments UA Color (test code = Yellow *NA*(02/11/17 UA Color) 12:20 AM) [facility] AND [id number] 05:20:00 Test Item Value Reference Range Interpretation Comments UA Turbidity (test code Slight *ABN*(02/11/17 = UA Turbidity) 12:20 AM) [facility] AND [id number] 05:20:00 Test Item Value Reference Range Interpretation Comments UA RBC (test code = 26 See_Comment [Automa rohit message] The UA RBC) system which ge nerated this result transmit rohit reference range : <=2. The reference range was not used to interpr et this result as flor l/abnormal. [facility] AND [id number] 05:20:00 Test Item Value Reference Range Interpretation Comments UA WBC (test code = 2 See_Comment [Automa rohit message] The UA WBC) system which ge nerated this result transmit rohit reference range : <=5. The reference range was not used to interpr et this result as flor l/abnormal. [facility] AND [id number] 05:20:00 Test Item Value Reference Range Interpretation Comments UA Mucus (test code = UA Mucus) Few /LPF [facility] AND [id number] 05:20:00 Test Item Value Reference Range Interpretation Comments UA Bacteria (test code = UA Occasional /HPF Bacteria) [facility] AND [id number] 05:20:00 Test Item Value Reference Range Interpretation Comments UA Sq Epi (test code = UA Sq Occasional /LPF Epi) [facility] AND [id number] 05:20:00 Test Item Value Reference Range Interpretation Comments UA Ketones (test code = UA Ketones) 80 mg/dL [facility] AND [id number] 05:20:00 Test Item Value Reference Range Interpretation Comments UA Bili (test code = Negative *NA*(02/11/17 UA Bili) 12:20 AM) [facility] AND [id number] 05:20:00 Test Item Value Reference Range Interpretation Comments UA Spec Grav (test code = UA Spec Grav) 1.017 [facility] AND [id number] 05:20:00 Test Item Value Reference Range Interpretation Comments UA Glucose (test code = UA Negative mg/dL Glucose) [facility] AND [id number] 05:20:00 Test Item Value Reference Range Interpretation Comments UA Protein (test code = UA Negative mg/dL Protein) [facility] AND [id number] 05:20:00 Test Item Value Reference Range Interpretation Comments UA pH (test code = UA pH) 8.0 5.0-8.0 [facility] [id number] 05:20:00 Test Item Value Reference Range Interpretation Comments U Preg (test code = U Negative (02/11/17 12:20 Preg) AM) [facility] History and Physical Notes Date/Time Note Provider Source 2023-03-19 05:06:54 [id number]:06:54Form[facility] ng of this note is RECONSTRUCTIVE SURGERY different from the original.Date of Service: 03/19/23HISTORY OF MECHANISM OF INJURYPuncture wound to R foot 2/2 snake bite. Patient suspects it was a baby copperhead. She reports initial injury at 9pm 03/18, received one dose of antivenom at 2AM 03/19.Date of Injury- 03/18/23Time of Injury- 9PMPAIN/INJURYLocations: r footPRIMARY SURVEY/GCSHeart rate- 98 Blood Pressure- 143/85 Temperature- 37 Respiratory Rate- 16 Glascow Coma Scale:Glascow Coma ScaleEye Opening: Spontaneous= 4Best Verbal Response: Oriented= 5Best Motor Response: Obeys command= 6TOTAL: 15Airway: PatentComment-Breathing: Bilateral breath sounds equalCirculation:Radial pulses present and equal and Pedal pulses present and equal Pupils: Equal/reactive and 3 mmALLERGIES: Allergies Allergen Reactions Adhesive Rash Sulfa (Sulfonamide Antibiotics) Rash MEDICATIONS: Home Medications: (Not in a hospital admission) Trazodone, phentermine, omeprazole, oral contraceptive, UlbrevyLast Taken: Hospital Medications:Current Facility-Administered Medications Medication Dose Route Frequency Last Rate Last Admin lactated ringers IV infusion 1,000 mL 1,000 mL Intravenous ONCE Current Outpatient Medications Medication Sig Dispense Refill ibuprofen 600 mg tablet Take 1 tablet by mouth every 6 (six) hours as needed for Pain (scale 4-6). 30 tablet 0 ondansetron (ZOFRAN ODT) 4 mg disintegrating tablet Take 1 tablet by mouth every 8 (eight) hours as needed for Nausea and Vomiting (N/V). 15 tablet 0 proMETHazine 25 mg suppository Insert 1 Suppository into rectum every 6 (six) hours as needed for Nausea and Vomiting (N/V) or N/V unresponsive to Ondansetron. 6 Suppository 0 norgestimate-ethinyl estradiol (SPRINTEC) 0.25-35 mg-mcg per tablet Take 1 Tab by mouth daily. 1 Package 11 PAST MEDICAL HISTORY:No problems updated. Past Medical History: Diagnosis Date Anxiety 2011 Not on meds BV (bacterial vaginosis) 09/02/2014 Chronic migraine Depression 2013 not on meds Eczema Irregular menstrual cycle 09/02/2014 Menstrual disorder Scoliosis STD (sexually transmitted disease) Vision problems wears glasses PAST SURGICAL HISTORY:Past Surgical History: Procedure Laterality Date COLONOSCOPY 2016 for C-diff ENDOSCOPY SURGICAL IMAGES 2016 TOOTH EXTRACTION 2017 wisdom teeth removed FAMILY HISTORY: Family History Problem Relation Age of Onset Arthritis Mother Asthma Mother Cancer Mother liver Depression Mother Diabetes Mother Hypertension Father Cancer Maternal Grandmother liver Psychiatry Paternal Grandmother Schizophrenia Paternal Grandmother defects NoFHx Breast Cancer NoFHx Colon Cancer NoFHx Ovarian Cancer NoFHx Uterine Cancer NoFHx Genetic NoFHx Heart NoFHx High cholesterol NoFHx Mental retardation NoFHx Neurological NoFHx Osteoporosis NoFHx Other - see comments NoFHx SOCIAL HISTORY: Social History Socioeconomic History Marital status: Single Spouse name: Not on file Number of children: 0 Years of education: Not on file Highest education level: Not on file Occupational History Not on file Tobacco Use Smoking status: Never Smokeless tobacco: Never Substance and Sexual Activity Alcohol use: No Drug use: No Sexual activity: Yes Partners: Male Other Topics Concern Service Not Asked Blood Transfusions No Caffeine Concern Not Asked Occupational Exposure Not Asked Hobby Hazards Not Asked Sleep Concern Not Asked Stress Concern Not Asked Weight Concern Not Asked Special Diet Not Asked Back Care Not Asked Exercise Not Asked Bike Helmet Not Asked Seat Belt Not Asked Self-Exams Not Asked Social History Narrative No domestic violence or abuse Social Determinants of Health Financial Resource Strain: Not on file Food Insecurity: Not on file Transportation Needs: Not on file Physical Activity: Not on file Stress: Not on file Social Connections: Not on file Intimate Partner Violence: Not on file Housing Stability: Not on file REVIEW OF SYSTEMSEye: negativeCV: negativeRespiratory: negativeGI: negativeMusculoskeletal: negativeSkin: puncture wound to R footNeuro: negativeEstimated Weight: 113.4 KgPHYSICAL EXAM1. HEAD a. Inspect and palpate scalp and face for fractures. Normal b. Perform otoscopic examination of nose and ears (CSF leak, hemotympanum). deferred c. Examine eyes. - Eye movement Normal -Size of Pupils Normal -Reaction of pupils to light Normal -Visual acuity Normal d. Inspect mouth for malocclusion, carious and/or missing teeth and lacerations. Normal e. Check for facial fractures: -Palpate nose; inspect septum for hematoma. Normal -Palpate zygomatic arches and infraorbital ridges. Normal -Check stability of midface and mandible. Normal 2. NECK a. Inspect for wounds, hematoma, swelling and venous distention. Normal b. Palpate for subcutaneous emphysema and tracheal deviation. Normal c. Palpate cervical spine for evidence of injury. Normal 3. CHEST a. Inspect for wounds, hematoma, swelling and ecchymosis. Normal b. Observe chest and it's movements (prominent hemothorax, paradoxical, etc). Normal c. Palpate for fractures and subcutaneous emphysema. Check thoracic cage stability using anterior-posterior and lateral compressions. Normal d. Auscultate for breath and heart sounds. Normal 4. ABDOMEN a. Inspect for wounds, hematoma, swelling and ecchymosis. Normal b. Auscultate for bowel sounds. Normal c. Palpate for tenderness, guarding (voluntary vs. involuntary), rebound, and masses (bladder, etc). Normal d. Check stability of pelvis by compressing iliac wings and symphysis pubis. Normal 5. MUSCULOSKELETAL a. Observe posture (decerebrate, decorticate, etc) and identify wounds, swelling, ecchymosis, and hematoma.. R foot moderately TTP with 2 puncture wounds and surrounding edema and ecchymosis. No edema proximall or distal to the lesion. Pulses equal bilaterally. R ankle circumference 27cm, L ankle circumference 28cm. Area was marked. No neurovascular deficits b. Palpate each extremity for tenderness, deformity, crepitus, and/or fracture. Record pulses. R foot TTP c. Record muscle strength, range of motion and sensation bilaterally. Normal d. Record pulses. Normal 6. GENITALIA AND PERINEUM a. Inspect penis (blood at meatus) and perineum (ecchymosis or laceration), priapism. N/a b. Perform rectal exam. Record: deferred - Position of prostate N/a - Anal sphincter activity deferred - Rectal sensation deferred - Rectal blood deferred 7. BACK (logroll patient with neck stabilized) a. Inspect for wounds, hematuria, swelling, ecchymosis and fractures. N/A b. Palpate spinal vertebrae, ribs and pelvis for tenderness and/or fractures. N/A LABORATORY RESULTSCBC BMP PT/INR WBC x10^3 (/uL) Date Value 09/01/2014 11.1 WBC (10*3/?L) Date Value 03/16/2021 9.36 NA (mmol/L) Date Value 03/16/2021 141 No results found for: "PT" RBC x10^6 (/uL) Date Value 09/01/2014 4.59 RBC (10*6/?L) Date Value 03/16/2021 4.55 K (mmol/L) Date Value 03/16/2021 3.1 (L) No results found for: "PTINR" PLT x10^3 (/uL) Date Value 09/01/2014 418 (H) PLT (10*3/?L) Date Value 03/16/2021 431 (H) CALCIUM (mg/dL) Date Value 03/16/2021 9.0 HGB Date Value 03/16/2021 12.7 g/dL 09/01/2014 12.7 G/DL CL (mmol/L) Date Value 03/16/2021 106 aPTT HCT (%) Date Value 03/16/2021 38.3 09/01/2014 39.8 BUN (mg/dL) Date Value 03/16/2021 9 No results found for: "APTTPAT" CREATININE (mg/dL) Date Value 03/16/2021 0.71 GLUCOSE (mg/dL) Date Value 03/16/2021 96 CO2 TOTAL (mmol/L) Date Value 03/16/2021 20 (L) FASTExam- not applicableX-RAY RESULTSNo results found.INJURIES/PROBLEMS/JULIO GNOSES and TREATMENT PLAN:Active Problems: * No active hospital problems. *- 2 puncture wounds to R foot with surrounding edema and ecchymosis. Plan- received 1 dose antivenom at 2AM at OSH- admit to observation status- telemetry- regular diet - pain control as needed- reevaluate extremity circumference, monitor enlarging edema, skin changes and neuro symptoms - monitor coagulopathic function with labs- keep affected extremity elevated COMPLICATIONS/SECONDARY DIAGNOSIS-noneDrAnkita Fofana, Pa, was notified of admission on 03/19/23 at 5:10AM. ssociated attestation - Chad Fofana MD - 03/19/2023 10:25 PM CDT After discussion with Dr. Ely, I examined this patient on 03/19/23. I agree with resident's note as written.Patient presenting with localized reaction to copperhead bite on right lateral foot near ankle. No systemic signs and no indication for repeat antivenom after first dose crofab given (prior to transfer). Electronically signed by:Chad Fofana MD ([place]) 03/19/2023 10:20 PMTrauma and Acute Care [id number] and physical [id number] [id number] .[id number] JiménezYrdlojcpER5479-37-79B36:25: 15History and physical [id number]. [id number] AVAvailable for patient [id number] and physical noteLNSUR-PLASTIC AND RECONSTRUCTIVE SURGERYSUR-PLASTIC AND RECONSTRUCTIVE SURGERY[address] BlvdGalvestonGalvestonTXTX7 [id number] [id number]:25:151.2. [id number]|1.2.84 [id number]
--- NOTE | 2023-05-22 12:12 | ER ---
[facility] Kelsi Mirza Age: 27 yrs Sex: Female : 1995 Arrival Date: 05/22/2023 Time: 10:28 Bed Treatment Private MD: Diagnosis: Cutaneous abscess of groin;Hidradenitis suppurativa Presentation: 05/22 10:47 Chief complaint: Patient states: right groin abscess started Sunday evening. eh3 Coronavirus screen: Vaccine status: Patient reports receiving the 2nd dose of the covid vaccine. Ebola Screen: No symptoms or risks identified at this time. Initial Sepsis Screen: Does the patient meet any 2 criteria? HR > 90 bpm. No. Patient's initial sepsis screen is negative. Does the patient have a suspected source of infection? Yes: Skin breakdown/wound. Risk Assessment: Do you want to hurt yourself or someone else? Patient reports no desire to harm self or others. Onset of symptoms was May 22, 2023. 10:47 Method Of Arrival: Ambulatory [facility] 10:47 Acuity: MELONY 3 eh3 Triage Assessment: 10:48 General: Appears in no apparent distress. uncomfortable, Behavior is calm, cooperative, eh3 appropriate for age. Pain: Complains of pain in groin. Neuro: Level of Consciousness is awake, alert, obeys commands, Oriented to person, place, time, situation. Cardiovascular: Capillary refill < 3 seconds Patient's skin is warm and dry. Respiratory: Airway is patent Respiratory effort is even, unlabored, Respiratory pattern is regular, symmetrical. Derm: Abscess located on groin. 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 - Social history:: Smoking status: Patient denies any tobacco usage or history of. Patient uses alcohol, but reports only rare drinking. Screenin:00 [facility] ED Fall Risk Assessment (Adult) Score/Fall Risk Level 0 - 2 = Low Risk. Abuse eh3 screen: Denies threats or abuse. Denies injuries from another. Nutritional screening: No deficits noted. Tuberculosis screening: No symptoms or risk factors identified. Assessment: 12:00 General: Appears in no apparent distress. uncomfortable, Behavior is calm, cooperative, eh3 appropriate for age. Pain: Complains of pain in groin. Neuro: Level of Consciousness is awake, alert, obeys commands, Oriented to person, place, time, situation. Cardiovascular: Capillary refill < 3 seconds Patient's skin is warm and dry. Respiratory: Airway is patent Respiratory effort is even, unlabored. GI: Abdomen is round non-distended. :. Derm: Abscess located on groin is quarter sized, has clear drainage, is red, is raised. Musculoskeletal: Circulation, motion, and sensation intact. Range of motion: intact in all extremities. Vital Signs: 10:47 BP 155 / 93; Pulse 107; Resp 16; Temp 98.2(IR); Pulse Ox 100% on R/A; Weight 113.4 kg; eh3 Height 5 ft. 10 in. ; Pain 6/10; 10:47 Body Mass Index 35.87 (113.40 kg, 177.8 cm) eh3 10:47 Pain Scale: Adult eh3 ED Course: 10:31 Patient arrived in ED. mg5 10:33 Trena Bermudez FNP is [facility]. jh7 10:33 Samuel Pichardo MD is Attending Physician. jh7 10:48 Triage completed. eh3 10:48 Arm band placed on. eh3 12:00 Patient has correct armband on for positive identification. Bed in low position. Call eh3 light in reach. Side rails up X2. Provided Education on: Use of call arriola. 12:28 Etelvina Cr, JULIAN is Primary Nurse. eh3 12:35 No provider procedures requiring assistance completed. Patient did not have IV access eh3 during this emergency room visit. 12:35 Wound care: to abscess located on groin was dressed with 4X4s, tape, Patient tolerated eh3 well. Administered Medications: 12:30 Drug: Ketorolac IM 60 mg IM once Route: IM; Site: left deltoid; 3 12:35 Follow up: Response: Medication administered at discharge. 3 Medication: 12:35 VIS not applicable for this client. 3 Outcome: 12:11 Discharge ordered by . jh7 12:36 Discharged to home ambulatory, 3 12:36 Condition: stable 12:36 Discharge instructions given to patient, Instructed on discharge instructions, follow up and referral plans. medication usage, wound care, Demonstrated understanding of instructions, follow-up care, medications, wound care, Prescriptions given X 2, 12:42 Patient left the ED. 3 Signatures: Etelvina Cr RN RN 3 Trena Bermudez, MARBLE CEILING INSTALLER MARBLE CEILING INSTALLER 7 Yoselin Osullivan mg5 Corrections: (The following items were deleted from the chart) 10:51 10:47 Pulse 107bpm; Resp 16bpm; Pulse Ox 100% RA; Temp 98.2F Infrared; 113.4 kg; Height 3 5 ft. 10 in.; BMI: 35.8; Pain 6/10, Adult; 3
--- NOTE | 2023-05-22 12:12 | EDPHYS ---
Physician Documentation [facility] Name: eKlsi Mirza Age: 27 yrs Sex: Female : 1995 Arrival Date: 05/22/2023 Time: 10:28 Bed Treatment Private MD: ED Physician Samuel Pichardo HPI: 05/22 10:50 This 27 yrs old Female presents to ER via Ambulatory with complaints of Groin Pain - jh7 abscess. 10:50 Onset: The symptoms/episode began/occurred 3 day(s) ago. Associated signs and symptoms: jh7 Pertinent negatives: fever. Patient reports a history of hidradenitis suppurativa with a possible abscess on her right groin. Denies any fever. She reports that she is allergic to sulfa antibiotics.. 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 - Social history:: Smoking status: Patient denies any tobacco usage or history of. Patient uses alcohol, but reports only rare drinking. ROS: 10:50 Constitutional: Negative for fever, chills, and weight loss, Neck: Negative for injury, jh7 pain, and swelling, Cardiovascular: Negative for chest pain, palpitations, and edema, Respiratory: Negative for shortness of breath, cough, wheezing, and pleuritic chest pain, Abdomen/GI: Negative for abdominal pain, nausea, vomiting, diarrhea, and constipation, MS/Extremity: Negative for injury and deformity, Neuro: Negative for headache, weakness, numbness, tingling, and seizure, 10:50 Skin: Positive for abscess, of the groin, 10:50 All other systems are negative, Exam: 10:50 Constitutional: This is a well developed, well nourished patient who is awake, alert, jh7 and in no acute distress. Head/Face: Normocephalic, atraumatic. Cardiovascular: Regular rate and rhythm with a normal S1 and S2. No gallops, murmurs, or rubs. Normal PMI, no JVD. No pulse deficits. Respiratory: Lungs have equal breath sounds bilaterally, clear to auscultation and percussion. No rales, rhonchi or wheezes noted. No increased work of breathing, no retractions or nasal flaring. Abdomen/GI: Soft, non-tender, with normal bowel sounds. No distension or tympany. No guarding or rebound. No evidence of tenderness throughout. MS/ Extremity: Pulses equal, no cyanosis. Neurovascular intact. Full, normal range of motion. Neuro: Awake and alert, GCS 15, oriented to person, place, time, and situation. Normal gait. 10:50 Skin: abscess, that is small, of the right groin, with drainage, No surrounding cellulitis noted, Vital Signs: 10:47 BP 155 / 93; Pulse 107; Resp 16; Temp 98.2(IR); Pulse Ox 100% on R/A; Weight 113.4 kg; eh3 Height 5 ft. 10 in. ; Pain 6/10; 10:47 Body Mass Index 35.87 (113.40 kg, 177.8 cm) [facility] 10:47 Pain Scale: Adult eh3 MDM: 10:33 Patient medically screened. [facility] 12:30 Differential diagnosis: Abscess, cellulitis, cyst, hidradenitis suppurativa. Data [facility] reviewed: vital signs, nurses notes. I considered the following discharge prescriptions or medication management in the emergency department Medications were administered in the Emergency Department. See MAR. Counseling: I had a detailed discussion with the patient and/or guardian regarding the historical points, exam findings, and any diagnostic results supporting the discharge/admit diagnosis, to return to the emergency department if symptoms worsen or persist or if there are any questions or concerns that arise at home. Response to treatment: the patient's symptoms have markedly improved after treatment. ED course: The patient's abscess was actively draining when the patient arrived. The patient stated she would rather not have an I\T\D so the abscess was manually expressed. Moderate amount of purulent drainage expressed. Advised warm Epsom salt soaks at home, to take antibiotics as directed, and take Tylenol and ibuprofen for pain.. 05/22 12:11 Order name: Wound dressing; Complete Time: 12:33 [facility] Administered Medications: 12:30 Drug: Ketorolac IM 60 mg IM once Route: IM; Site: left deltoid; [facility] 12:35 Follow up: Response: Medication administered at discharge. [facility] Disposition Summary: 05/22/23 12:11 Discharge Ordered Notes: Location: Home [facility] Problem: new [facility] Symptoms: have improved [facility] Condition: Stable [facility] Diagnosis - Cutaneous abscess of groin [facility] - Hidradenitis suppurativa [facility] Followup: [facility] - With: Private Physician - When: 2 - 3 days - Reason: Recheck today's complaints Discharge Instructions: - Discharge Summary Sheet [facility] - Skin Abscess [facility] - Hidradenitis Suppurativa [facility] Forms: - Medication Reconciliation Form [facility] - Thank You Letter [facility] - Antibiotic Education [facility] - Patient Portal Instructions [facility] - Leadership Thank You Letter [facility] Prescriptions: - Clindamycin HCl 300 mg Oral Capsule - take 1 capsule ORAL route every 6 hours for 10 days; 40 capsule; Refills: 0, [facility] Product Selection Permitted - Naprosyn 500 mg Oral Tablet - take 1 tablet ORAL route 2 times per day take with food; 30 tablet; Refills: 0, [facility] Product Selection Permitted Addendum: 05/23/2023 12:43 Co-signature as Attending Physician, Samuel Pichardo MD. e c2 Signatures: Etelvina Cr RN RN 3 Trena Bermudez, [facility] N[facility]SE STAFF [place] [id number] Samuel Pichardo MD MD 2
[2023-05-22] MEDS ORDERED: KETOROLAC 30 MG/ML INJ ONE (12:43)
== END 2023-05-22 12:42 | disposition home or self-care (01) ==
LOC: ER 10:28
DX: L02.214 Cutaneous abscess of groin (principal); L73.2 Hidradenitis suppurativa